=== PATIENT | female | born 1940 | race Caucasian/White ===

== ENCOUNTER → 2016-03-01 | Outpatient (CLI) | payer BC ==
[~2016-03-01] MED LIST: ADAL40KI SC; ALPR0.25 PO; ATOR-24 PO; B-CO-25 PO; BROM0.07 OPL; CALCTAB5 PO; CEFD300C2 PO; CEPH500C PO; FLUC100T4 PO; FLV1 PO; JOINT ADVANTAGE PO; METH2.5T PO; MULT-506 PO; PANT40TA PO; PRED-301 PO; PRED1SUS3 OPL; SPIR1TAB72 PO; SULI150T PO; TRAM-10 PO
[2016-03-01 10:55] LABS: ESTIMATED AVERAGE GLUCOSE 154 mg/dl; HA1C FLAG Normal (Normal)
== END | disposition home or self-care (01) ==
LOC: C.LAB1850 08:53
PROVIDERS: ATTEND Internal Medicine
DX: E11.9 Type 2 diabetes mellitus without complications (principal)

== ENCOUNTER → 2016-03-07 | Outpatient (CLI) | payer BC ==
--- NOTE | 2016-03-07 08:41 | DIAGNOSTIC IMAGING REPORT ---
ULTRASOUND RIGHT UPPER QUADRANT ABDOMEN CLINICAL HISTORY: Right upper quadrant abdominal pain. Nausea. COMPARISON STUDY: Abdominal ultrasound dated 12/18/2008. TECHNIQUE: Real-time, grayscale, and color flow sonography of the right upper quadrant of the abdomen was performed. Images are reviewed in the transverse and longitudinal planes. FINDINGS: Liver: The liver is and demonstrates heterogeneously increased echotexture consistent with at least moderate hepatic steatosis. Fatty sparing is noted adjacent to gallbladder fossa. There is no intrahepatic biliary ductal dilatation. The main portal vein is patent. Gallbladder: The gallbladder is normal in appearance. No gallstones are identified. There is no gallbladder wall thickening or pericholecystic fluid. A sonographic Acuña's sign is reportedly absent. The common bile duct measures up to 0.5 cm in diameter. Pancreas: Visualized portions of the pancreatic head and body are normal in appearance. Right kidney: Survey images of the right kidney demonstrate normal size and echotexture. There is no hydronephrosis. Ascites: None. IMPRESSION: 1. No acute sonographic abnormality is identified in the right upper quadrant. No gallstones are seen. 2. Hepatic steatosis. Electronically signed by: Ed Bowman M.D. 03/07/2016 8:39 AM Dictated Date/Time: 03/07/2016 8:38 AM
== END | disposition home or self-care (01) ==
LOC: C.ULTR 08:11
PROVIDERS: ATTEND Internal Medicine
DX: R11.0 Nausea (principal); R10.9 Unspecified abdominal pain; K76.0 Fatty (change of) liver, not elsewhere classified; M54.2 Cervicalgia

== ENCOUNTER → 2016-03-10 | Day surgery (SDC) | payer BC ==
[~2016-03-10] VITALS: Ht 152.4 cm; Wt 70.5 kg
[~2016-03-10] MED LIST changes: +ATROPINE SULFATE 0.1 MG/ML 5ML SYR IV PRN; +ESMOLOL HCL 10 MG/ML 10 ML VIAL ONE; +EpHEDrine SULFATE INJ 50 MG/ML AMP IV PRN; +LIDOCAINE HCL 2% 2 ML VIAL (20MG/ML) ONE; +METOPROLOL TARTRATE 1 MG/ML VIAL ONE; +MIDAZOLAM HCL 1 MG/ML 2ML VIAL ONE; +ONDANSETRON INJ 2 MG/ML 2 ML VIAL ONE; +PROPOFOL IV EMULSION 10 MG/ML 20 ML VIAL IV ONE; +SODIUM CHLORIDE 0.9% 500ML 500 ML IV ONE
[2016-03-10 08:56] VITALS: Ht 152.4 cm; Wt 70.5 kg
--- NOTE | 2016-03-10 08:57 | Endo History and Physical ---
History & Physical Date of Service: Mar 10, 2016. Chief Complaint: Abdominal pain Referring Physician: Dr. Denise History of Present Illness 75 yo CF who presents for EGD secondary to abdominal pain. Past Surgical History Hx Cardiac Surgery: No Hx Abdominal Surgery: No Hx Post-Op Nausea and Vomiting: No Hx Cancer Surgery: Yes (RT BREAST LUMPECTOMY) Hx Thoracic Surgery: No Hx Orthopedic: Yes (RT FOOT SURGERY) Hx Urinary Tract Surgery: No Social History Smoking Status: Never Smoker Hx Substance Use: No Hx Alcohol Use: Yes (1 GLASS WINE WEEKLY) Allergies Coded Allergies: No Known Allergies (Unverified , 12/14/15) Current Medications Reported Home Medications Medications Dose Route/Sig Max Daily Dose Days Date Category Prolensa (Bromfenac Sodium (Ophth)) 0.07 % Sara 1 Drop OPL DAILY 11/23/15 Reported Pred Forte 1% Oph (Prednisolone Acetate) Susp 1 Drop OPL BID 11/02/15 Reported Super B Complex Maxi (B-Complex W/ Folic Acid) 1 Tab Tab 1 Tab PO QAM 10/05/15 Reported Caltrate (Calcium) 600 Mg Tab 600 Mg PO QAM 10/05/15 Reported [Joint Advantage] 1 Tab PO QAM 10/05/15 Reported Multivitamin (Multivitamins) Tab 1 Tab PO QAM 10/05/15 Reported Xanax (Alprazolam) 0.25 Mg Tab 1 Tab PO HS 10/05/15 Reported Clinoril (Sulindac) 150 Mg Tab 150 Mg PO BID 10/05/15 Reported Spironolactone/Hydrochlor 25-25 mg (HCTZ/Spironolactone) 1 Ea Tab 1 Tab PO BID 10/05/15 Reported Lipitor (Atorvastatin Calcium) 40 Mg Tab 40 Mg PO QPM 10/05/15 Reported Physical Exam General Appearance: WD/WN, no apparent distress Respiratory/Chest: Auscultation: breath sounds normal Cardiovascular: Heart Auscultation: RRR Abdomen: Bowel Sounds: normal Inspection & Palpation: soft, non-distended, no tenderness, guarding & rebound Assessment and Plan Assessment: 75 yo CF who presents for EGD secondary to abdominal pain. Plan: Proceed with EGD.
--- NOTE | 2016-03-10 09:50 | Discharge Instructions ---
Endoscopy Patient Instructions Date / Procedure(s) Performed Mar 10, 2016. EGD Allergy Information Coded Allergies: No Known Allergies (Verified , 03/10/16) Discharge Date / Findings Mar 10, 2016. Gastritis s/p biopsies Medication Instructions OK to resume all medications today as prescribed. Reported Home Medications Medications Dose Route/Sig Max Daily Dose Days Date Category Super B Complex Maxi (B-Complex W/ Folic Acid) 1 Tab Tab 1 Tab PO QAM 10/05/15 Reported Caltrate (Calcium) 600 Mg Tab 600 Mg PO QAM 10/05/15 Reported [Joint Advantage] 1 Tab PO QAM 10/05/15 Reported Multivitamin (Multivitamins) Tab 1 Tab PO QAM 10/05/15 Reported Xanax (Alprazolam) 0.25 Mg Tab 1 Tab PO HS 10/05/15 Reported Clinoril (Sulindac) 150 Mg Tab 150 Mg PO BID 10/05/15 Reported Spironolactone/Hydrochlor 25-25 mg (HCTZ/Spironolactone) 1 Ea Tab 1 Tab PO BID 10/05/15 Reported Lipitor (Atorvastatin Calcium) 40 Mg Tab 40 Mg PO QPM 10/05/15 Reported Provider Instructions Activity Restrictions - No exercising or heavy lifting for 24 hours. - Do not drink alcohol the day of the procedure. - Do not drive a car or operate machinery until the day after the procedure. - Do not make any important decisions or sign important papers in 24 hours after the procedure. Following Day: - Return to full activity which may include returning to work/school. Diet Start your diet with liquids and light foods (jello, soup, juice, toast). Then eat your usual diet if not nauseated. Treatment For Common After Affects For mild abdominal pain, bloating, or excessive gas: - Rest - Eat lightly - Lie on right side Follow-Up Information Follow-up with DR. MICHELLE as scheduled Anesthesia Information What You Should Know You have had a procedure that required some medicine to reduce anxiety and discomfort. This treatment is called moderate sedation. After receiving the treatment, you may be sleepy, but you will be able to breathe on your own. The effects of the treatment may last for several hours. Follow these instructions along with Activity/Diet recommendations noted above: * Do NOT do anything where dizziness or clumsiness would be dangerous. * Rest quietly at home today, then you can be up and about tomorrow. * Have a responsible person stay with you the rest of today. * You may have had an I.V. today. If so, you may take the dressing off later today. Recommendations Call your doctor if: * Trouble breathing * Continuous vomiting for more than 24 hours * Temperature above 101 degrees * Severe abdominal pain or bloating * Pain not relieved by pain medicine ordered * There is increased drainage or redness from any incision * A large amount of rectal bleeding greater than 2-3 tablespoons. (If you had a polyp/s removed or have hemorrhoids, a small amount of blood - from the rectum is to be expected.) * You have any unanswered questions or concerns. IN THE EVENT OF A SERIOUS EMERGENCY, GO TO THE NEAREST EMERGENCY ROOM Your discharge instructions were prepared by provider Beau Ayoub. Patient Instructions Signature Page Lizzette Erickson Patient (or Guardian) Signature/Date: I have read and understand the instructions given to me by my caregivers. Caregiver/RN/Doctor Signature/Date: The above-named patient and/or guardian has received patient instructions on this date. + Original Patient Signature Page (only) stays with chart. Please make copy for patient.
--- NOTE | 2016-03-10 09:52 | Anesthesiology Progress Note ---
Anesthesia Post Op Note Date & Time Mar 10, 2016 at 09:52 Vital Signs Pain Intensity: 0 Vital Signs Past 12 Hours Date Time Temp Pulse Resp B/P Pulse Ox O2 Delivery O2 Flow Rate FiO2 03/10/16 09:49 81 18 124/59 96 Room Air 03/10/16 09:14 37.0 103 16 139/83 96 Room Air Notes Mental Status: alert / awake / arousable, participated in evaluation Pt Amnestic to Procedure: Yes Nausea / Vomiting: adequately controlled Pain: adequately controlled Airway Patency, RR, SpO2: stable & adequate BP & HR: stable & adequate Hydration State: stable & adequate Anesthetic Complications: no major complications apparent
--- NOTE | 2016-03-10 09:59 | GI REPORT ---
Procedure Date: 03/10/2016 9:22 AM Procedure: Upper GI endoscopy Indications: Epigastric abdominal pain Medicines: Monitored Anesthesia Care Complications: No immediate complications. Estimated Blood Loss: Estimated blood loss: none. Procedure: Pre-Anesthesia Assessment: - Prior to the procedure, a History and Physical was performed, and patient medications and allergies were reviewed. The patient's tolerance of previous anesthesia was also reviewed. The risks and benefits of the procedure and the sedation options and risks were discussed with the patient. All questions were answered, and informed consent was obtained. Prior Anticoagulants: The patient has taken no previous anticoagulant or antiplatelet agents. ASA Grade Assessment: II - A patient with mild systemic disease. After reviewing the risks and benefits, the patient was deemed in satisfactory condition to undergo the procedure. After obtaining informed consent, the endoscope was passed under direct vision. Throughout the procedure, the patient's blood pressure, pulse, and oxygen saturations were monitored continuously. The scope was introduced through the mouth, and advanced to the second part of duodenum. The upper GI endoscopy was accomplished without difficulty. The patient tolerated the procedure well. Findings: The esophagus was normal. Localized mild inflammation characterized by erythema was found in the gastric antrum. Biopsies were taken with a cold forceps for histology. The examined duodenum was normal. Impression: - Normal esophagus. - Gastritis. Biopsied. - Normal examined duodenum. Recommendation: - Resume previous diet. - Continue present medications. - Await pathology results. - Return to GI office as previously scheduled. Beau Ayoub, 03/10/2016 9:58:44 AM This report has been signed electronically. Note Initiated On: 03/10/2016 9:22 AM
[2016-03-10 10:15] VITALS: BP 141/66; PULSE 81; O2SAT 99
== END | disposition home or self-care (01) ==
LOC: C.GI 08:45
PROVIDERS: ATTEND Internal Medicine
DX: K29.70 Gastritis, unspecified, without bleeding (principal); Z98.890 Other specified postprocedural states

== ENCOUNTER → 2016-03-16 | Outpatient (CLI) | payer BC ==
[~2016-03-16] MED LIST changes: -ATROPINE SULFATE 0.1 MG/ML 5ML SYR IV PRN; -BROM0.07 OPL; -ESMOLOL HCL 10 MG/ML 10 ML VIAL ONE; -EpHEDrine SULFATE INJ 50 MG/ML AMP IV PRN; -LIDOCAINE HCL 2% 2 ML VIAL (20MG/ML) ONE; -METOPROLOL TARTRATE 1 MG/ML VIAL ONE; -MIDAZOLAM HCL 1 MG/ML 2ML VIAL ONE; -ONDANSETRON INJ 2 MG/ML 2 ML VIAL ONE; -PRED1SUS3 OPL; -PROPOFOL IV EMULSION 10 MG/ML 20 ML VIAL IV ONE; -SODIUM CHLORIDE 0.9% 500ML 500 ML IV ONE
== END | disposition home or self-care (01) ==
LOC: C.LAB1850 11:08
PROVIDERS: ATTEND Internal Medicine
DX: M54.2 Cervicalgia (principal)

== ENCOUNTER → 2016-04-14 | Outpatient (CLI) | payer BC ==
[2016-04-14 13:17] LABS: BASO % 0.3 %; BASO ABS # 0.03 K/uL (0-0.2); COMPLETE YES; EOS % 1.1 %; HEMATOCRIT 43.1 % (37-47); IG% 0.3 %; LYMPH % 25.1 %; LYMPH ABS # 2.21 K/uL (1.2-3.4); MEAN CELL VOLUME 89.2 fL (80-100); MEAN CORPUSCULAR HEMOGLOBIN 30.8 pg (25-34); MEAN CORPUSCULAR HGB CONC 34.6 g/dl (32-36); MEAN PLATELET VOLUME 8.3 fL (7.4-10.4); MONO % 9.1 %; NEUT % 64.1 %; PLATELET COUNT 336 K/uL (130-400); RED BLOOD COUNT 4.83 M/uL (4.2-5.4); WHITE BLOOD COUNT 8.81 K/uL (4.8-10.8)
[2016-04-14 14:00] LABS: C-REACTIVE PROTEIN 5.56 mg/dl (0-0.29)
--- NOTE | 2016-04-18 09:03 | CODING QUERY MEDICAL NECESSITY ---
SUPPORTING DIAGNOSIS NEEDED Dr. Denise, A supporting diagnosis is required for the test/procedure performed on this patient in order for us to be reimbursed by the patient's insurance. Please provide a supporting diagnosis for the following test/procedure listed below next to the test name along with your signature. *If there is no additional diagnosis for this patient that would support the following test/procedure please document that below next to the test/procedure. Test(s)/Procedure(s) that require a supporting diagnosis: * ([id number]) HLA B-27 DIAGNOSIS: DATE OF SERVICE: 04/14/16 Provider Signature: Date: Thank you Diaz Talbert [facility] Information Management Once completed, please kindly fax back to [phone] For questions please call [phone]
[2016-04-18 15:28] LABS: CYCLIC CITRULLINATED PEPT IGG >250 UNITS (<20); HLA-B27** TC 528X NEGATIVE (NEGATIVE)
== END | disposition home or self-care (01) ==
LOC: C.LAB1850 12:12
PROVIDERS: ATTEND Internal Medicine
DX: E11.9 Type 2 diabetes mellitus without complications (principal); M19.90 Unspecified osteoarthritis, unspecified site

== ENCOUNTER → 2016-04-28 | Outpatient (CLI) | payer BC ==
--- NOTE | 2016-04-28 14:45 | DIAGNOSTIC IMAGING REPORT ---
RIGHT WRIST MIN 3 VIEWS ROUTINE CLINICAL HISTORY: Seropositive rheumatoid arthritis. Right wrist and hand pain. COMPARISON: None FINDINGS: Alignment of the right wrist is in the common. There is no acute fracture or suspicious lesion. No erosions are identified. Minimal joint space narrowing is noted. IMPRESSION: 1. Unremarkable right wrist radiographs for age. 2. No evidence of an erosive/inflammatory arthropathy. Electronically signed by: Ras Henderson M.D. 04/28/2016 2:44 PM Dictated Date/Time: 04/28/2016 2:43 PM
--- NOTE | 2016-04-28 14:47 | DIAGNOSTIC IMAGING REPORT ---
RIGHT HAND MIN 3 VIEWS ROUTINE CLINICAL HISTORY: Seropositive rheumatoid arthritis. COMPARISON: None FINDINGS: Alignment of the right hand is anatomic. No fracture or suspicious lesion is present. There is moderate joint space narrowing with osteophytosis of multiple interphalangeal joints, most evident within the second and third DIP joints. There is an equivocal erosion of the second metacarpal head. IMPRESSION: 1. 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 2. Equivocal erosion of the second metacarpal head. Electronically signed by: Ras Henderson M.D. 04/28/2016 2:46 PM Dictated Date/Time: 04/28/2016 2:44 PM
== END | disposition home or self-care (01) ==
LOC: C.RAD1850 14:25
PROVIDERS: ATTEND Internal Medicine Rheumatology
DX: Z51.81 Encounter for therapeutic drug level monitoring (principal); Z79.899 Other long term (current) drug therapy; Z79.1 Long term (current) use of non-steroidal anti-inflammatories (NSAID); M05.9 Rheumatoid arthritis with rheumatoid factor, unspecified

== ENCOUNTER → 2016-05-29 | Outpatient (CLI) | payer BC ==
[2016-05-29 10:10] LABS: BASO % 0.3 %; BASO ABS # 0.05 K/uL (0-0.2); COMPLETE YES; EOS % 1.9 %; HEMATOCRIT 45.1 % (37-47); LYMPH % 33.1 %; LYMPH ABS # 4.76 K/uL (1.2-3.4); MEAN CELL VOLUME 87.9 fL (80-100); MEAN CORPUSCULAR HEMOGLOBIN 30.2 pg (25-34); MEAN CORPUSCULAR HGB CONC 34.4 g/dl (32-36); MEAN PLATELET VOLUME 8.4 fL (7.4-10.4); MONO % 6.4 %; NEUT % 57.3 %; PLATELET COUNT 299 K/uL (130-400); RED BLOOD COUNT 5.13 M/uL (4.2-5.4); WHITE BLOOD COUNT 14.36 K/uL (4.8-10.8)
[2016-05-29 10:16] LABS: ALT/SGPT 40 U/L (12-78)
[2016-05-29 10:20] LABS: ALKALINE PHOSPHATASE 73 U/L (45-117); AST/SGOT 12 U/L (15-37)
== END | disposition home or self-care (01) ==
LOC: C.LAB1850 08:05
PROVIDERS: ATTEND Internal Medicine Rheumatology
DX: L90.0 Lichen sclerosus et atrophicus (principal); M05.9 Rheumatoid arthritis with rheumatoid factor, unspecified; Z79.52 Long term (current) use of systemic steroids

== ENCOUNTER 2016-07-03 17:25 | Emergency (ER) | payer BC ==
[~2016-07-03] VITALS: Ht 152.4 cm; Wt 71.4 kg
[~2016-07-03 17:25] MED LIST changes: -ADAL40KI SC; -CEFD300C2 PO; -CEPH500C PO; -FLUC100T4 PO; -FLV1 PO; -METH2.5T PO; -PANT40TA PO; -PRED-301 PO; -TRAM-10 PO
[2016-07-03 17:32] VITALS: TEMP 36.6; Ht 152.4 cm; Wt 71.4 kg
[2016-07-03] MEDS ORDERED: LEVALBUTEROL 1.25MG/0.5ML NEB INH STA (17:52)
[2016-07-03] MEDS ORDERED: IPRATROPIUM BROMIDE NEB SOLN 0.02% 2.5 ML VIAL INH STA (17:52)
[2016-07-03] MEDS ORDERED: ADAL40KI SC (17:55)
[2016-07-03] MEDS ORDERED: FLV1 PO (17:55)
[2016-07-03] MEDS ORDERED: PANT40TA PO (17:55)
[2016-07-03] MEDS ORDERED: METH2.5T PO (17:55)
[2016-07-03] MEDS ORDERED: PRED-301 PO ×2 (17:55)
[2016-07-03] MEDS ORDERED: CALCTAB5 PO (17:55)
[2016-07-03 18:17] VITALS: O2SAT 96
[2016-07-03 18:21] LABS: BASO % 0.4 %; BASO ABS # 0.03 K/uL (0-0.2); COMPLETE YES; EOS % 1.2 %; HEMATOCRIT 45.9 % (37-47); IG% 1.2 %; LYMPH % 32.3 %; MEAN CELL VOLUME 89.8 fL (80-100); MEAN CORPUSCULAR HEMOGLOBIN 30.5 pg (25-34); MEAN PLATELET VOLUME 8.1 fL (7.4-10.4); MONO % 10.5 %; NEUT % 54.4 %; PLATELET COUNT 307 K/uL (130-400); RED BLOOD COUNT 5.11 M/uL (4.2-5.4); WHITE BLOOD COUNT 7.43 K/uL (4.8-10.8)
[2016-07-03 18:32] VITALS: PULSE 108; O2SAT 96
[2016-07-03 18:33] LABS: PARTIAL THROMBOPLASTIN RATIO 1.1; PROTHROMBIN TIME (PATIENT) 10.7 SECONDS (9.0-12.0)
--- NOTE | 2016-07-03 18:35 | DIAGNOSTIC IMAGING REPORT ---
CHEST ONE VIEW PORTABLE CLINICAL HISTORY: EVALUATE RESPIRATORY DISTRESS. DYSPNEA dyspnea COMPARISON STUDY: No previous studies for comparison. FINDINGS: Slight bibasilar interstitial change. Mid and upper lungs are clear. Diaphragms are smooth. No evidence for cardiac enlargement. IMPRESSION: Mild nonspecific interstitial prominence both lung bases. Otherwise negative study Electronically signed by: Arslan Norwood M.D. 07/03/2016 6:33 PM Dictated Date/Time: 07/03/2016 6:33 PM
[2016-07-03 18:41] LABS: ALT/SGPT 49 U/L (12-78); AST/SGOT 14 U/L (15-37); BLOOD UREA NITROGEN 17 mg/dl (7-18); BUN/CREATININE RATIO 15.1 (10-20); CALCIUM 10.1 mg/dl (8.5-10.1); CARBON DIOXIDE 31 mmol/L (21-32); CHLORIDE 98 mmol/L (98-107); GLUCOSE 200 mg/dl (70-99); POTASSIUM 3.8 mmol/L (3.5-5.1); SODIUM 136 mmol/L (136-145)
[2016-07-03] MEDS ORDERED: OPTIRAY 320 IV PRN (18:45)
[2016-07-03 18:46] LABS: ALB/GLOB RATIO 0.9 (0.9-2); ALKALINE PHOSPHATASE 76 U/L (45-117)
[2016-07-03 19:15] LABS: MANUAL MICROSCOPIC REQUIRED? NO; REVIEW REQ? NO; URINE APPEARANCE CLEAR (CLEAR); URINE BILIRUBIN NEG (NEG); URINE COLOR YELLOW; URINE EPITHELIAL CELL AUTO >30 /lpf (0-5); URINE NITRITE POS (NEG); URINE PH 7.5 (4.5-7.5); UROBILINOGEN NEG (NEG); ZZUR CULT IF INDIC CLEAN CATCH YES
--- NOTE | 2016-07-03 19:17 | DIAGNOSTIC IMAGING REPORT ---
CHEST CTA for PULMONARY ARTERIES CT DOSE: 438.46 mGy.cm HISTORY: Chest pain dyspnea TECHNIQUE: Multiaxial CT images of the chest were performed following the intravenous administration of contrast to evaluate the pulmonary arteries. Maximal intensity projection images were also obtained. COMPARISON STUDY: None. FINDINGS: There is a normal caliber thoracic aorta with no evidence for dissection. There is no evidence for pulmonary embolus. No pleural effusions. No pneumothorax. The liver and spleen are unremarkable. No mediastinal or hilar lymphadenopathy. The central airways are patent. The lungs are clear. Slight interstitial prominence of both lung bases. IMPRESSION: No evidence for pulmonary embolus. Slight basilar interstitial prominence. Electronically signed by: Arslan Norwood M.D. 07/03/2016 7:16 PM Dictated Date/Time: 07/03/2016 7:13 PM
--- NOTE | 2016-07-03 19:25 | EMERGENCY ROOM VISIT NOTE ---
History Report prepared by Marysol: Rodrigo Tovar Under the Supervision of: Dr. Ed Amaya M.D. First contact with patient: 17:40 Chief Complaint: SHORTNESS OF BREATH Stated Complaint: SOB,COUGH,WEAKNESS,DR REFERRED Nursing Triage Summary: PT VERBALIZES "I'M ON SOME MEDICINES THAT I AM HAVING TERRIBLE REACTIONS TO. I TALKED TO MY MD, AND SHE REFERRED ME HERE".SYMPTOMS INCLUDE: SHORTNESS OF BREATH, FEELING JITTERY, COUGH, CHEST TIGHTNESS, AND LETHARGY. NEW MEDICATIONS INCLUDE: HUMIRA, PREDNISONE, METHOTREXATE, AND FOLIC ACID FOR RA. History of Present Illness The patient is a 75 year old female who presents to the Emergency Room with complaints of worsening shortness of breath starting about 2-3 weeks ago. She was recently diagnosed with acute onset of rheumatoid arthritis and was started on Methotrexate, Prednisone, and Humira injections. Her symptoms started after she started receiving the Humira injections. She receives the injections every other week. Her last injection was 3 days ago. She is now tapering off of the Prednisone. She has worsening difficulty breathing with exertion. She reports nonproductive cough, increased urinary frequency, urinary and bowel pressure, diarrhea, generalized weakness, and shakiness. The patient reports chest pain with coughing. She notes a tachycardic heart rate occurring for the past few days. She denies fevers, chills, black/bloody stools, lower extremity edema, or any other complaints. She did not have any recent long trips. She denies any history of lung disease, heart disease, or blood clots. Source of History: patient Onset: about 2-3 weeks ago Position: other (global) Quality: other (shortness of breath) Timing: worsening Modifying Factors (Worsening): exertion Associated Symptoms: + chest pain (with coughing), + cough, + diarrhea, + weakness, No chills, No fevers Review of Systems See HPI for pertinent positives & negatives. A total of 10 systems reviewed and were otherwise negative. Past Medical & Surgical Medical Problems: (1) Rheumatoid arthritis Family History Patient reports no known family medical history. Social History Smoking Status: Never Smoker Marital Status: Occupation Status: retired Current/Historical Medications Scheduled Adalimumab (Humira Pen), 1 DOSE SC EVERY OTHER SUNDAY Atorvastatin (Lipitor), 40 MG PO QPM B-Complex W/ Folic Acid (Super B Complex Maxi), 1 TAB PO QAM Calcium Carbonate (Caltrate 600), 1 TAB PO DAILY Cefdinir (Omnicef), 300 MG PO Q12H Folic Acid (Folic Acid), 1 MG PO DAILY Hctz/Spironolactone (Spironolactone/Hydrochlor 25-25 mg), 1 TAB PO BID Methotrexate Sodium (Methotrexate), 4 TAB PO WK Multivitamin (Multivitamin), 1 TAB PO QAM Pantoprazole (Protonix), 40 MG PO DAILY Prednisone (Prednisone), 5 MG PO Q2D Prednisone (Prednisone), 2.5 MG PO Q2D Allergies Coded Allergies: No Known Allergies (Verified , 03/10/16) Physical Exam Vital Signs Date Time Temp Pulse Resp B/P Pulse Ox O2 Delivery O2 Flow Rate FiO2 07/03/16 21:10 101 18 129/85 96 07/03/16 19:15 107 20 136/88 98 Room Air 07/03/16 18:32 108 18 96 Room Air 07/03/16 18:17 96 Room Air 07/03/16 17:48 121 07/03/16 17:32 95 Room Air 07/03/16 17:32 36.6 124 20 142/76 96 Physical Exam GENERAL: Patient is in no acute distress. HEENT: No acute trauma, normocephalic atraumatic, mucous membranes moist, no nasal congestion, no scleral icterus. NECK: No stridor, no adenopathy, no meningismus, trachea is midline. LUNGS: Fairly full breath sounds, breath sounds are equal bilaterally, few scattered crackles are heard. No wheezing. Dry cough noted. HEART: Tachycardic rate and regular rhythm. No murmurs. ABDOMEN: Soft, nontender, bowel sounds positive, no hernias, no peritonitis. EXTREMITIES: No cyanosis or edema, full range of motion of all the joints without pain or difficulty, no signs for acute trauma. NEUROLOGIC: Oriented x 3, no acute motor or sensory deficits, no focal weakness. SKIN: No rash, no jaundice, no diaphoresis. Medical Decision & Procedures ER Provider Diagnostic Interpretation: X-ray results as stated below per interpretation by me and the radiologist: CHEST ONE VIEW PORTABLE CLINICAL HISTORY: EVALUATE RESPIRATORY DISTRESS. DYSPNEA dyspnea COMPARISON STUDY: No previous studies for comparison. FINDINGS: Slight bibasilar interstitial change. Mid and upper lungs are clear. Diaphragms are smooth. No evidence for cardiac enlargement. IMPRESSION: Mild nonspecific interstitial prominence both lung bases. Otherwise negative study Electronically signed by: Arslan Norwood M.D. 07/03/2016 6:33 PM Dictated Date/Time: 07/03/2016 6:[address] results as stated below per my review and radiologist interpretation: CHEST CTA for PULMONARY ARTERIES CT DOSE: 438.46 mGy.cm HISTORY: Chest pain dyspnea TECHNIQUE: Multiaxial CT images of the chest were performed following the intravenous administration of contrast to evaluate the pulmonary arteries. Maximal intensity projection images were also obtained. COMPARISON STUDY: None. FINDINGS: There is a normal caliber thoracic aorta with no evidence for dissection. There is no evidence for pulmonary embolus. No pleural effusions. No pneumothorax. The liver and spleen are unremarkable. No mediastinal or hilar lymphadenopathy. The central airways are patent. The lungs are clear. Slight interstitial prominence of both lung bases. IMPRESSION: No evidence for pulmonary embolus. Slight basilar interstitial prominence. Electronically signed by: Arslan Norwood M.D. 07/03/2016 7:16 PM Dictated Date/Time: 07/03/2016 7:13 PM Laboratory Results 07/03/16 18:10 Red Blood Count 5.11, Mean Corpuscular Volume 89.8, Mean Corpuscular Hemoglobin 30.5, Mean Corpuscular Hemoglobin Concent 34.0, Mean Platelet Volume 8.1, Neutrophils (%) (Auto) 54.4, Lymphocytes (%) (Auto) 32.3, Monocytes (%) (Auto) 10.5, Eosinophils (%) (Auto) 1.2, Basophils (%) (Auto) 0.4, Neutrophils # (Auto ) 4.04, Lymphocytes # (Auto) 2.40, Monocytes # (Auto) 0.78, Eosinophils # (Auto ) 0.09, Basophils # (Auto) 0.03 07/03/16 18:10 Test 07/03/16 18:10 07/03/16 18:16 07/03/16 19:00 White Blood Count 7.43 K/uL (4.8-10.8) Red Blood Count 5.11 M/uL (4.2-5.4) Hemoglobin 15.6 g/dL (12.0-16.0) Hematocrit 45.9 % (37-47) Mean Corpuscular Volume 89.8 fL (80-100) Mean Corpuscular Hemoglobin 30.5 pg (25-34) Mean Corpuscular Hemoglobin Concent 34.0 g/dl (32-36) Platelet Count 307 K/uL (130-400) Mean Platelet Volume 8.1 fL (7.4-10.4) Neutrophils (%) (Auto) 54.4 % Lymphocytes (%) (Auto) 32.3 % Monocytes (%) (Auto) 10.5 % Eosinophils (%) (Auto) 1.2 % Basophils (%) (Auto) 0.4 % Neutrophils # (Auto) 4.04 K/uL (1.4-6.5) Lymphocytes # (Auto) 2.40 K/uL (1.2-3.4) Monocytes # (Auto) 0.78 K/uL (0.11-0.59) Eosinophils # (Auto) 0.09 K/uL (0-0.5) Basophils # (Auto) 0.03 K/uL (0-0.2) RDW Standard Deviation 48.0 fL (36.4-46.3) RDW Coefficient of Variation 14.9 % (11.5-14.5) Immature Granulocyte % (Auto) 1.2 % Immature Granulocyte # (Auto) 0.09 K/uL (0.00-0.02) Prothrombin Time 10.7 SECONDS (9.0-12.0) Prothromb Time International Ratio 1.0 (0.9-1.1) Activated Partial Thromboplast Time 27.6 SECONDS (21.0-31.0) Partial Thromboplastin Ratio 1.1 Anion Gap 7.0 mmol/L (3-11) Est Creatinine Clear Calc Drug Dose 40.2 ml/min Estimated GFR () 57.7 Estimated GFR (Non- 49.8 BUN/Creatinine Ratio 15.1 (10-20) Calcium Level 10.1 mg/dl (8.5-10.1) Total Bilirubin 0.7 mg/dl (0.2-1) Aspartate Amino Transf (AST/SGOT) 14 U/L (15-37) Alanine Aminotransferase (ALT/SGPT) 49 U/L (12-78) Alkaline Phosphatase 76 U/L (45-117) Troponin I < 0.015 ng/ml (0-0.045) Pro-B-Type Natriuretic Peptide 22 pg/ml (0-900) Total Protein 8.1 gm/dl (6.4-8.2) Albumin 3.8 gm/dl (3.4-5.0) Globulin 4.3 gm/dl (2.5-4.0) Albumin/Globulin Ratio 0.9 (0.9-2) Bedside D-Dimer > 450 ng/mlFEU (0-450) Bedside Troponin I 0.010 ng/ml (0-0.045) Urine Color YELLOW Urine Appearance CLEAR (CLEAR) Urine pH 7.5 (4.5-7.5) Urine Specific Irene 1.010 (1.000-1.030) Urine Protein NEG (NEG) Urine Glucose (UA) TRACE (NEG) Urine Ketones NEG (NEG) Urine Occult Blood TRACE (NEG) Urine Nitrite POS (NEG) Urine Bilirubin NEG (NEG) Urine Urobilinogen NEG (NEG) Urine Leukocyte Esterase TRACE (NEG) Urine WBC (Auto) 1-5 /hpf (0-5) Urine RBC (Auto) 0-4 /hpf (0-4) Urine Hyaline Casts (Auto) 0 /lpf (0-5) Urine Epithelial Cells (Auto) >30 /lpf (0-5) Urine Bacteria (Auto) 4+ (NEG) Laboratory results reviewed by me. Medications Administered Medications (Trade) Dose Ordered Sig/Isaac Route Start Time Stop Time Status Last Admin Dose Admin Levalbuterol (Xopenex 1.25MG/ 0.5ML Neb) 1.25 mg NOW STAT INH 07/03/16 17:52 07/03/16 17:58 DC 07/03/16 17:52 1.25 MG Ipratropium [place] 0.5 mg 0.5 mg NOW STAT INH 07/03/16 17:52 07/03/16 17:58 DC 07/03/16 18:30 0.5 MG Sodium Chloride (Nss 500ml) 500 ml @ 999 mls/hr Q31M STAT IV 07/03/16 19:40 07/03/16 20:10 DC 07/03/16 20:14 999 MLS/HR Ceftriaxone Sodium 1 gm 1 gm NOW STAT IV 07/03/16 19:40 07/03/16 19:41 DC 07/03/16 20:15 1 GM Sodium Chloride (Nss 500ml) 500 ml @ 999 mls/hr Q31M STAT IV 07/03/16 20:15 07/03/16 20:45 DC 07/03/16 20:15 999 MLS/HR Albuterol (Ventolin Hfa Inhaler) 2 puffs NOW ONCE INH 07/03/16 20:15 07/03/16 20:16 DC 07/03/16 20:15 2 PUFFS ECG Indication: SOB/dyspnea Rate (beats per minute): 128 Rhythm: sinus tachycardia Findings: no acute ischemic change, no ectopy ED Course 1739: The patient was evaluated in room C01B. A complete history and physical exam was performed. 1751: Ipratropium [place] 0.5 mg INH, Levalbuterol 1.25 mg INH 1939: Rocephin Inj 1 gm IV, Sodium Chloride 500 ml @ 999 mls/hr IV 1940: I reevaluated the patient who is resting comfortably. 1955: I discussed the patient's case with Dr. Winkler, director of software engineering with [facility]. She recommended outpatient follow up and agreed with the treatment plan. 2014: Albuterol 2 puffs INH, Sodium Chloride 500 ml @ 999 mls/hr IV 2024: Reevaluated the patient. Discussed results and discharge instructions: She verbalized understanding and agreement. The patient is ready for discharge. Medical Decision Differential diagnosis includes but is not limited to PE, dehydration, medication reaction, A-Fib/A-Flutter, CHF, pneumonia, bronchitis, anemia, electrolyte imbalance. There is no leukocytosis or concerning anemia. No significant electrolyte abnormality, kidney failure or hepatitis. EKG shows a sinus tachycardia, no acute ischemia. Cardiac enzyme testing times one is not consistent with acute cardiac injury. Chest x-ray shows no pneumonia or CHF. There was no pneumothorax. D-dimer was elevated. Chest CT does not show PE, no evidence for pneumonia. Urinalysis is consistent with infection. Urine culture is pending. The patient received IV saline, IV ceftriaxone. She was given a DuoNeb. She received albuterol via MDI. The patient's heart rate has come down significantly. She feels improved. I do think her presentation is multifactorial. She may have a bronchitis, this has caused some dyspnea. She definitely has a UTI which is a large part of her presentation. I did speak with her director of software engineering. The patient is being discharged on Omnicef twice a day for 10 days. Albuterol for the presumed bronchospasm. Hydration was encouraged. She will return here for fever, worsening symptoms or if not improving. Consults Time Called: 1954 Consulting Physician: Dr. Winkler, director of software engineering with [facility] Returned Call: 1955 I discussed the patient's case with Dr. Winkler director of software engineering with [facility]. She recommended outpatient follow up and agreed with the treatment plan. Impression Primary Impression: Tachycardia Additional Impressions: Shortness of breath Dehydration UTI (urinary tract infection) Scribe Attestation The scribe's documentation has been prepared under my direction and personally reviewed by me in its entirety. I confirm that the note above accurately reflects all work, treatment, procedures, and medical decision making performed by me. Departure Information Dispostion Home / Self-Care Prescriptions Cefdinir (OMNICEF) 300 Mg Cap 300 MG PO Q12H for 10 Days, #20 CAP Prov: Ed Amaya M.D. 07/03/16 Referrals Rajinder Denise M.D. (PCP) Forms HOME CARE DOCUMENTATION FORM, IMPORTANT VISIT INFORMATION Patient Instructions My [facility] Additional Instructions omnicef 2x per day for 10 days stay well hydrated use albuterol inhaler 2 puffs every 4-6 hours see your doctors this week return for worsening symptoms as we discussed or if not improving Problem Qualifiers
[2016-07-03] MEDS ORDERED: CEFTRIAXONE SOD INJ 1 GM ADDVIAL IV STA (19:40)
[2016-07-03] MEDS ORDERED: SODIUM CHLORIDE 0.9% 500ML 500 ML IV STA ×2 (19:40→20:15)
[2016-07-03] MEDS ORDERED: CEFD300C2 PO (20:14)
[2016-07-03] MEDS ORDERED: ALBUTEROL HFA 8 GM INHALER INH ONE (20:15)
[2016-07-03 21:10] VITALS: BP 129/85; PULSE 101; O2SAT 96
== END 2016-07-03 21:11 | disposition home or self-care (01) ==
LOC: C.EDB 17:26 → C.EDC 21:11
DX: R00.0 Tachycardia, unspecified (principal); R06.02 Shortness of breath; E86.0 Dehydration; N39.0 Urinary tract infection, site not specified; M06.9 Rheumatoid arthritis, unspecified; Z79.899 Other long term (current) drug therapy; Z79.52 Long term (current) use of systemic steroids

== ENCOUNTER → 2016-07-07 | Outpatient (CLI) | payer BC ==
[~2016-07-07] MED LIST changes: +ADAL40KI SC; -ALPR0.25 PO; +CEFD300C2 PO; +CEPH500C PO; +FLUC100T4 PO; +FLV1 PO; -JOINT ADVANTAGE PO; +METH2.5T PO; +PANT40TA PO; +PRED-301 PO; -SULI150T PO; +TRAM-10 PO
[2016-07-07 09:31] LABS: BASO % 0.3 %; BASO ABS # 0.04 K/uL (0-0.2); COMPLETE YES; EOS % 1.7 %; HEMATOCRIT 47.5 % (37-47); IG% 0.6 %; LYMPH % 26.4 %; LYMPH ABS # 3.21 K/uL (1.2-3.4); MEAN CELL VOLUME 90.6 fL (80-100); MEAN CORPUSCULAR HEMOGLOBIN 31.5 pg (25-34); MEAN CORPUSCULAR HGB CONC 34.7 g/dl (32-36); MEAN PLATELET VOLUME 8.5 fL (7.4-10.4); MONO % 7.2 %; NEUT % 63.8 %; PLATELET COUNT 325 K/uL (130-400); RED BLOOD COUNT 5.24 M/uL (4.2-5.4); WHITE BLOOD COUNT 12.15 K/uL (4.8-10.8)
[2016-07-07 10:09] LABS: ALT/SGPT 53 U/L (12-78); AST/SGOT 23 U/L (15-37)
[2016-07-07 10:11] LABS: ALKALINE PHOSPHATASE 73 U/L (45-117)
== END | disposition home or self-care (01) ==
LOC: C.LAB1850 08:26
PROVIDERS: ATTEND Internal Medicine Rheumatology
DX: Z79.899 Other long term (current) drug therapy (principal)

== ENCOUNTER → 2016-07-12 | Outpatient (CLI) | payer BC ==
--- NOTE | 2016-07-12 13:46 | DIAGNOSTIC IMAGING REPORT ---
CHEST 2 VIEWS ROUTINE CLINICAL HISTORY: Cough. Allergic reaction. COMPARISON STUDY: 07/03/2016 FINDINGS: The cardiac and mediastinal contours remain stable. There is stable nonspecific interstitial thickening. There is no lobar consolidation. There are no pleural effusions. There is no overt failure.[ IMPRESSION: Nonspecific interstitial thickening, similar to the preceding study. No evidence of lobar consolidation. Electronically signed by: Sukhdeep Maldonado M.D. 07/12/2016 1:44 PM Dictated Date/Time: 07/12/2016 1:43 PM
== END | disposition home or self-care (01) ==
LOC: C.RAD1850 13:31
PROVIDERS: ATTEND Internal Medicine
DX: R05 Cough (principal)

== ENCOUNTER → 2016-07-21 | Outpatient (CLI) | payer BC ==
[~2016-07-21] MED LIST changes: -CEFD300C2 PO
[2016-07-21 09:56] LABS: CALCIUM 10.3 mg/dl (8.5-10.1)
[2016-07-21 10:00] LABS: BLOOD UREA NITROGEN 26 mg/dl (7-18); BUN/CREATININE RATIO 23.6 (10-20); CARBON DIOXIDE 31 mmol/L (21-32); CHLORIDE 96 mmol/L (98-107); CHOLESTEROL 268 mg/dl (0-200); GLUCOSE 145 mg/dl (70-99); POTASSIUM 3.6 mmol/L (3.5-5.1); SODIUM 137 mmol/L (136-145); TRIGLYCERIDES 224 mg/dl (0-150); VERY LOW DENSITY LIPOPROT CALC 45 mg/dl
[2016-07-21 10:04] LABS: ESTIMATED AVERAGE GLUCOSE 235 mg/dl; HA1C FLAG Normal (Normal)
[2016-07-21 10:11] LABS: CHOLESTEROL/HDL RATIO 4.1; HDL CHOLESTEROL 66 mg/dl; LDL CHOLESTEROL CALCULATED 157 mg/dl
[2016-07-21 12:40] LABS: URINE APPEARANCE CLEAR (CLEAR); URINE BILIRUBIN NEG (NEG); URINE COLOR DK YELLOW; URINE EPITHELIAL CELL AUTO >30 /lpf (0-5); URINE NITRITE NEG (NEG); URINE PH 5.5 (4.5-7.5); URINE SPECIFIC GRAVITY 1.023 (1.000-1.030); UROBILINOGEN NEG (NEG)
[2016-07-21 12:51] LABS: MANUAL MICROSCOPIC REQUIRED? NO; REVIEW REQ? YES
--- NOTE | 2016-07-28 11:44 | CODING QUERY MEDICAL NECESSITY ---
CQTREATMENT RENDERED WITHOUT A DIAGNOSIS To promote full compliance with coding requirements relating to patient care, physician participation is requested in all cases of concierge uncertainty. Please assist us with providing a diagnosis/symptom for the test(s) below: A diagnosis/symptom was not documented on your Order. A valid diagnosis/symptom is required to bill all insurances. Please remember that we are unable to code a diagnosis of rule out, probable, possible, questionable, or suspected. Tests that require a diagnosis: DOS 07/21/16 Provider Signature: Date: Thank you Oksana Corbin [employer] Once completed, please kindly fax back to [phone] For questions please call [phone]
--- NOTE | 2016-07-28 11:46 | CODING QUERY MEDICAL NECESSITY ---
CQSUPPORTING DIAGNOSIS NEEDED A supporting diagnosis is required for the test/procedure performed on this patient in order for us to be reimbursed by the patient's insurance. Please provide a supporting diagnosis for the following test/procedure listed below next to the test name along with your signature. *If there is no additional diagnosis for this patient that would support the following test/procedure please document that below next to the test/procedure. Test(s)/Procedure(s) that require a supporting diagnosis: DOS 07/21/16 GLYCATED HEMOGLOBIN Provider Signature: Date: Thank you Oksana Corbin [employer] Once completed, please kindly fax back to [phone] For questions please call [phone]
== END | disposition home or self-care (01) ==
LOC: C.LAB1850 07:32
PROVIDERS: ATTEND Internal Medicine
DX: E78.00 Pure hypercholesterolemia, unspecified (principal); E11.9 Type 2 diabetes mellitus without complications

== ENCOUNTER → 2016-07-31 | Outpatient (CLI) | payer BC ==
--- NOTE | 2016-08-01 12:46 | MAMMOGRAPHY REPORT ---
BILATERAL DIGITAL SCREENING MAMMOGRAM TOMOSYNTHESIS WITH CAD: 07/31/2016 CLINICAL HISTORY: Asymptomatic. Personal history of breast cancer. TECHNIQUE: Breast tomosynthesis in addition to standard 2D mammography was performed. Current study was also evaluated with a Computer Aided Detection (CAD) system. COMPARISON: Comparison is made to exams dated: 07/27/2015 mammogram, 07/23/2014 mammogram, 07/25/2013 m ammogram, 07/22/2013 mammogram, 07/18/2012 mammogram, and 07/18/2011 mammogram - [facility] enter. BREAST COMPOSITION: There are scattered areas of fibroglandular density in both breasts. FINDINGS: There is expected architectural distortion with associated surgical clips in the upper oute r quadrant of the right breast, at the site of prior lumpectomy. There are scattered and grouped sta ble microcalcifications bilaterally. No new suspicious mass, architectural distortion or cluster of microcalcifications is seen. IMPRESSION: ACR BI-RADS CATEGORY 1: NEGATIVE There is no mammographic evidence of malignancy. A 1 year screening mammogram is recommended. The pa tient will receive written notification of the results. Approximately 10% of breast cancers are not detected with mammography. A negative mammographic report should not delay biopsy if a clinically suggestive mass is present. Farrah Akins M.D. ay/:07/31/2016 16:38:45 [place]: Lillie DAMICO(R)(Hali), [facility] letter sent: Normal 1/2 BI-RADS Code: ACR BI-RADS Category 1: Negative
== END | disposition home or self-care (01) ==
LOC: C.MAMM 09:54
PROVIDERS: ATTEND Obstetrics & Gynecology
DX: Z12.31 Encounter for screening mammogram for malignant neoplasm of breast (principal)

== ENCOUNTER → 2016-08-11 | Outpatient (CLI) | payer BC ==
[2016-08-11 13:24] LABS: BASO % 0.1 %; BASO ABS # 0.01 K/uL (0-0.2); COMPLETE YES; EOS % 0.1 %; HEMATOCRIT 48.7 % (37-47); IG% 1.3 %; LYMPH % 12.1 %; LYMPH ABS # 1.54 K/uL (1.2-3.4); MEAN CELL VOLUME 92.2 fL (80-100); MEAN CORPUSCULAR HEMOGLOBIN 31.8 pg (25-34); MEAN CORPUSCULAR HGB CONC 34.5 g/dl (32-36); MEAN PLATELET VOLUME 8.9 fL (7.4-10.4); MONO % 2.9 %; NEUT % 83.5 %; PLATELET COUNT 284 K/uL (130-400); RED BLOOD COUNT 5.28 M/uL (4.2-5.4); WHITE BLOOD COUNT 12.74 K/uL (4.8-10.8)
[2016-08-11 14:47] LABS: BLOOD UREA NITROGEN 28 mg/dl (7-18); BUN/CREATININE RATIO 21.3 (10-20); CARBON DIOXIDE 28 mmol/L (21-32); CHLORIDE 91 mmol/L (98-107); GLUCOSE 363 mg/dl (70-99); POTASSIUM 4.7 mmol/L (3.5-5.1); SODIUM 130 mmol/L (136-145)
[2016-08-11 15:05] LABS: BETA-HYDROXYBUTYRATE 2.35 mg/dL (0.2-2.81)
[2016-08-11 18:53] LABS: CALCIUM 10.4 mg/dl (8.5-10.1)
--- NOTE | 2016-08-16 11:16 | CODING QUERY MEDICAL NECESSITY ---
SUPPORTING DIAGNOSIS NEEDED A supporting diagnosis is required for the test/procedure performed on this patient in order for us to be reimbursed by the patient's insurance. Please provide a supporting diagnosis for the following test/procedure listed below next to the test name along with your signature. *If there is no additional diagnosis for this patient that would support the following test/procedure please document that below next to the test/procedure. Test(s)/Procedure(s) that require a supporting diagnosis: * FRUCTOSAMINE DIAGNOSIS: Provider Signature: Date: Thank you Sandy Arroyo [place] Once completed, please kindly fax back to [phone] For questions please call [phone]
== END | disposition home or self-care (01) ==
LOC: C.LAB1850 11:46
PROVIDERS: ATTEND Internal Medicine
DX: E78.00 Pure hypercholesterolemia, unspecified (principal); E11.9 Type 2 diabetes mellitus without complications

== ENCOUNTER → 2016-08-22 | Outpatient (CLI) | payer BC | END | disposition home or self-care (01) | LOC: C.LAB1850 12:14 | PROVIDERS: ATTEND Internal Medicine Rheumatology | DX: M05.9 Rheumatoid arthritis with rheumatoid factor, unspecified (principal); J18.9 Pneumonia, unspecified organism ==

== ENCOUNTER → 2016-09-15 | Outpatient (CLI) | payer BC ==
--- NOTE | 2016-09-22 10:55 | CODING QUERY MEDICAL NECESSITY ---
CQSUPPORTING DIAGNOSIS NEEDED A supporting diagnosis is required for the test/procedure performed on this patient in order for us to be reimbursed by the patient's insurance. Please provide a supporting diagnosis for the following test/procedure listed below next to the test name along with your signature. *If there is no additional diagnosis for this patient that would support the following test/procedure please document that below next to the test/procedure. Test(s)/Procedure(s) that require a supporting diagnosis: DOS 09/15/16 GLYCATED HEMOGLOBIN TEST BLOOD GLUCOSE TEST Provider Signature: Date: Thank you Oksana Corbin [employer] Information [employer] Once completed, please kindly fax back to [phone] For questions please call [phone]
== END | disposition home or self-care (01) ==
LOC: C.LAB1850 11:25
PROVIDERS: ATTEND Internal Medicine
DX: F41.9 Anxiety disorder, unspecified (principal)

== ENCOUNTER 2016-09-24 08:09 | Emergency (ER) | payer BC ==
[~2016-09-24] VITALS: Ht 152.4 cm; Wt 71.3 kg
[~2016-09-24 08:09] MED LIST changes: -CEPH500C PO; -FLUC100T4 PO; -TRAM-10 PO
[2016-09-24 08:12] VITALS: TEMP 36.6; Ht 152.4 cm; Wt 71.3 kg
[2016-09-24] MEDS ORDERED: ONDANSETRON INJ 2 MG/ML 2 ML VIAL IV STA (08:37)
[2016-09-24] MEDS ORDERED: MoRPHine SULFATE 2 MG/ML CARP IV STA (08:37)
--- NOTE | 2016-09-24 08:44 | EMERGENCY ROOM VISIT NOTE ---
History Report prepared by Marysol: Margoth Carnes Under the Supervision of: Dr. Brandy Nevarez M.D. First contact with patient: 08:17 Chief Complaint: VAGINAL BLEEDING Stated Complaint: IRRITATION, BLEEDING IN PRIVATE AREA History of Present Illness The patient is a 76 year old female who presents to the Emergency Room with complaints of persistent vaginal bleeding that began prior to arrival. She currently rates her discomfort as an 8/10 in severity. The patient states that she has been on Prednisone for an extended period of time for her Rheumatoid arthritis. She notes increased urination and bowel movements due to her Prednisone use. The patient reports that she began noticing irritation to her vaginal area for quite some time. She states that she last saw her plastic surgery assistant in April and was given Clotrimazole for the irritation. The patient states that she has been using the cream every time she urinates. She states that it only slightly alleviated the irritation. The patient notes that the notes burning with urination. She states that recently she began bleeding from the irritation. The patient states that she tried using cream for a diaper rash. She denies any fever. The patient denies being sexually active. Source of History: patient Onset: prior to arrival Position: other (vaginal) Symptom Intensity: 8/10 Quality: other (bleeding) Timing: other (persistent) Associated Symptoms: + urinary symptoms (burning with urination), No fevers Review of Systems See HPI for pertinent positives & negatives. A total of 10 systems reviewed and were otherwise negative. Past Medical & Surgical Medical Problems: (1) Rheumatoid arthritis Family History Patient reports no known family medical history. Social History Smoking Status: Never Smoker Marital Status: Housing Status: lives with significant other Occupation Status: retired Current/Historical Medications Scheduled Atorvastatin (Lipitor), 40 MG PO QPM B-Complex W/ Folic Acid (Super B Complex Maxi), 1 TAB PO QAM Calcium Carbonate (Caltrate 600), 1 TAB PO DAILY Cephalexin Monohydrate (Keflex), 500 MG PO TID Fluconazole (Diflucan), 1 TAB PO DAILY Folic Acid (Folic Acid), 1 MG PO DAILY Hctz/Spironolactone (Spironolactone/Hydrochlor 25-25 mg), 1 TAB PO BID Multivitamin (Multivitamin), 1 TAB PO QAM Pantoprazole (Protonix), 40 MG PO DAILY Prednisone (Prednisone), 10 MG PO DAILY Scheduled PRN Tramadol (Ultram), 1 TABS PO Q6 PRN for Pain Allergies Coded Allergies: No Known Allergies (Verified , 03/10/16) Physical Exam Vital Signs Date Time Temp Pulse Resp B/P (MAP) Pulse Ox O2 Delivery O2 Flow Rate FiO2 09/24/16 10:20 98 18 135/81 99 09/24/16 10:13 98 18 135/81 99 Room Air 09/24/16 08:12 36.6 123 18 156/103 99 Room Air Physical Exam Vital signs reviewed. General: Well-appearing female, in some discomfort, slightly tearful HEENT: No scleral icterus, PERRLA, neck supple. Atraumatic. Cardiovascular: Regular rate and rhythm, no extra sounds. Pulmonary: Clear to auscultation bilaterally, normal work of breathing. Abdomen: Obese. Soft, nontender, nondistended, positive bowel sounds. Peroneum: Significant erythema of the peroneum with satellite lesions surrounding the genitals. Significant swelling, irritation with white adherent discharge to the vulva. Periurethral swelling with mild excoriation with swollen vaginal-enteritis. Musculoskeletal: Atraumatic, no peripheral edema. Neurologic: Patient awake alert and oriented x 3 Skin: Warm, dry, no rash Medical Decision & Procedures Laboratory Results 09/24/16 08:30 Red Blood Count 5.23, Mean Corpuscular Volume 92.4, Mean Corpuscular Hemoglobin 31.7, Mean Corpuscular Hemoglobin Concent 34.4, Mean Platelet Volume 8.5, Neutrophils (%) (Auto) 58.5, Lymphocytes (%) (Auto) 31.5, Monocytes (%) (Auto) 7.9, Eosinophils (%) (Auto) 0.6, Basophils (%) (Auto) 0.3, Neutrophils # (Auto) 7.98, Lymphocytes # (Auto) 4.30, Monocytes # (Auto) 1.07, Eosinophils # (Auto) 0.08, Basophils # (Auto) 0.04 09/24/16 08:30 Test 09/24/16 08:30 White Blood Count 13.63 K/uL (4.8-10.8) Red Blood Count 5.23 M/uL (4.2-5.4) Hemoglobin 16.6 g/dL (12.0-16.0) Hematocrit 48.3 % (37-47) Mean Corpuscular Volume 92.4 fL (80-100) Mean Corpuscular Hemoglobin 31.7 pg (25-34) Mean Corpuscular Hemoglobin Concent 34.4 g/dl (32-36) Platelet Count 264 K/uL (130-400) Mean Platelet Volume 8.5 fL (7.4-10.4) Neutrophils (%) (Auto) 58.5 % Lymphocytes (%) (Auto) 31.5 % Monocytes (%) (Auto) 7.9 % Eosinophils (%) (Auto) 0.6 % Basophils (%) (Auto) 0.3 % Neutrophils # (Auto) 7.98 K/uL (1.4-6.5) Lymphocytes # (Auto) 4.30 K/uL (1.2-3.4) Monocytes # (Auto) 1.07 K/uL (0.11-0.59) Eosinophils # (Auto) 0.08 K/uL (0-0.5) Basophils # (Auto) 0.04 K/uL (0-0.2) RDW Standard Deviation 48.1 fL (36.4-46.3) RDW Coefficient of Variation 14.2 % (11.5-14.5) Immature Granulocyte % (Auto) 1.2 % Immature Granulocyte # (Auto) 0.16 K/uL (0.00-0.02) Anion Gap 13.0 mmol/L (3-11) Est Creatinine Clear Calc Drug Dose 39.5 ml/min Estimated GFR () 57.3 Estimated GFR (Non- 49.4 BUN/Creatinine Ratio 20.8 (10-20) Calcium Level 9.8 mg/dl (8.5-10.1) Total Bilirubin 0.6 mg/dl (0.2-1) Direct Bilirubin 0.2 mg/dl (0-0.2) Aspartate Amino Transf (AST/SGOT) 18 U/L (15-37) Alanine Aminotransferase (ALT/SGPT) 50 U/L (12-78) Alkaline Phosphatase 65 U/L (45-117) Total Protein 7.6 gm/dl (6.4-8.2) Albumin 4.0 gm/dl (3.4-5.0) Laboratory results per my review. Medications Administered Medications (Trade) Dose Ordered Sig/Isaac Route Start Time Stop Time Status Last Admin Dose Admin Morphine Sulfate (MoRPHine SULFATE INJ) 2 mg NOW STAT IV 09/24/16 08:37 09/24/16 08:39 DC 09/24/16 08:45 2 MG Ondansetron HCl (Zofran Inj) 4 mg NOW STAT IV 09/24/16 08:37 09/24/16 08:39 DC 09/24/16 08:44 4 MG Ceftriaxone Sodium (Rocephin Inj) 1 gm NOW STAT IV 09/24/16 08:53 09/24/16 08:54 DC 09/24/16 09:06 1 GM Fluconazole (Diflucan Tab) 100 mg NOW ONCE PO 09/24/16 10:15 09/24/16 10:16 DC 09/24/16 10:17 100 MG ED Course 0826: Past medical records reviewed. The patient was evaluated in room B10. A complete history and physical examination was performed. 0834: I discussed the patients case with Dr. Mulligan, beet flumer. She said dont do an internal exam, do not put any cream on it, she states to wash with water, pat dry, and keep as dry as possible. She said to treat with Diflucan for 7 days. 0837: Ordered Zofran Inj 4 mg IV, Morphine Sulfate 2 mg IV. 0839: I reevaluated the patient and I discussed the treatment plan with her. She is in agreement. 0853: Ordered Rocephin Inj 1 gm IV. 0933: I reevaluated the patient and she is resting comfortably. I discussed all the exam findings with her and I discussed the treatment plan. She verbalized complete understanding and agreement. She will be evaluated for further treatment. 1015: Ordered Diflucan Tab 100 mg PO. Medical Decision The patient is a 76 year old female who presents to the ED with complaints of vaginal bleeding. Differentials include cellulitis, yeast dermatitis, steroid dermatitis, contact dermatitis, STI, malignancy This patient was evaluated and appeared to be in some discomfort. IV access was obtained and laboratory work was drawn. Patient was placed on the shaping machine tender and found to be in a normal sinus rhythm. Blood pressure is stable. Physical examination reveals a significant vulvovaginitis with erythema and adherent white discharge. Dr. Mulligan of [facility] was consulted due to the patient 's complex medical history. Dr. Mulligan has advised not to do a pelvic exam at this point as it will likely caused the patient undue pain. She has recommended against an ultrasound for the same reason. She has been using oral and topical steroids. I suspect the patient's vaginitis is secondary to a steroid dermatitis with a superimposed yeast dermatitis. She was given 1 g of IV ceftriaxone for the possibility of a superimposed cellulitis. The patient was instructed on no topical agents. She will wash only with water and pat dry. The patient will be contacted by case management tomorrow to help establish a short interval follow-up with [facility] in the office. I do not see any need for urgent [facility] [employer] [facility] evaluation. Patient was discharged with a prescription for Diflucan 100 mg daily for 6 more days, Keflex 500 mg 4 times daily. She will cease using the steroid cream immediately. She will return to the ER for worsening of symptoms or any medical concerns. Medication Reconcilliation Current Medication List: was personally reviewed by me Blood Pressure Screening Patient's blood pressure: Elevated blood pressure Blood pressure disposition: Elevated BP felt to be situational, Did not require urgent referral Consults Time Called: 0833 Consulting Physician: Dr. Mulligan, beet flumer Returned Call: 0834 I discussed the patients case with Dr. Mulligan, beet flumer. She said dont do an internal exam, do not put any cream on it, she states to wash with water, pat dry, and keep as dry as possible. She said to treat with Diflucan for 7 days. Impression Primary Impression: Vaginitis and vulvovaginitis Scribe Attestation The scribe's documentation has been prepared under my direction and personally reviewed by me in its entirety. I confirm that the note above accurately reflects all work, treatment, procedures, and medical decision making performed by me. Departure Information Dispostion Home / Self-Care Prescriptions Cephalexin Monohydrate (Keflex) 500 Mg Cap 500 MG PO TID, #21 CAP Prov: Brandy Nevarez M.D. 09/24/16 Tramadol (Ultram) 50 Mg Tab 1 TABS PO Q6 Y for Pain, #20 TAB Prov: Brandy Nevarez M.D. 09/24/16 Fluconazole (DIFLUCAN) 100 Mg Tab 1 TAB PO DAILY for 7 Days, #7 TAB Prov: Brandy Nevarez M.D. 09/24/16 Referrals Rajinder Denise M.D. (PCP) Sandy Mulligan MD Forms HOME CARE DOCUMENTATION FORM, IMPORTANT VISIT INFORMATION, WORK / SCHOOL INSTRUCTIONS Patient Instructions My [facility] Additional Instructions Diagnosis: Vaginitis, vulvovaginitis Diflucan 100 mg daily for 7 days. You have been given your first dose in the emergency department. Keflex 500 mg 3 times daily for 7 days. Please wash with water only. Patent dry with a clean towel. Only wear loose cotton underwear and loose cotton pants. Do not apply any topical ointments or creams. If you need some vaginal lubricant, you can apply a minimal amounts of water soluble KY jelly up to 3 times daily. Ultram 50 mg every 6 hours as needed for significant pain. Tylenol 650 mg every 6 hours as needed for less significant pain. Follow-up with [facility] as scheduled for you by case management. You should be contacted tomorrow with an appointment time for later this week. Return to the emergency department for worsening of symptoms or any medical concerns.
[2016-09-24 08:50] LABS: BASO % 0.3 %; BASO ABS # 0.04 K/uL (0-0.2); COMPLETE YES; EOS % 0.6 %; HEMATOCRIT 48.3 % (37-47); IG% 1.2 %; LYMPH % 31.5 %; MEAN CELL VOLUME 92.4 fL (80-100); MEAN CORPUSCULAR HEMOGLOBIN 31.7 pg (25-34); MEAN CORPUSCULAR HGB CONC 34.4 g/dl (32-36); MEAN PLATELET VOLUME 8.5 fL (7.4-10.4); MONO % 7.9 %; NEUT % 58.5 %; PLATELET COUNT 264 K/uL (130-400); RED BLOOD COUNT 5.23 M/uL (4.2-5.4); WHITE BLOOD COUNT 13.63 K/uL (4.8-10.8)
[2016-09-24] MEDS ORDERED: CEFTRIAXONE SOD INJ 1 GM ADDVIAL IV STA (08:53)
[2016-09-24 09:08] LABS: BUN/CREATININE RATIO 20.8 (10-20); CALCIUM 9.8 mg/dl (8.5-10.1); CREATININE 1.1 mg/dl (0.60-1.20); POTASSIUM 3.1 mmol/L (3.5-5.1)
[2016-09-24] MEDS ORDERED: TRAM-10 PO (10:07)
[2016-09-24] MEDS ORDERED: FLUC100T4 PO (10:07)
[2016-09-24] MEDS ORDERED: CEPH500C PO (10:07)
[2016-09-24] MEDS ORDERED: FLUCONAZOLE 50 MG TAB PO ONE (10:15)
[2016-09-24 10:20] VITALS: BP 135/81; PULSE 98; O2SAT 99
== END 2016-09-24 10:20 | disposition home or self-care (01) ==
LOC: C.EDB 08:10
DX: N76.0 Acute vaginitis (principal); M06.9 Rheumatoid arthritis, unspecified; Z79.899 Other long term (current) drug therapy

== ENCOUNTER → 2016-10-16 | Outpatient (CLI) | payer BC ==
[~2016-10-16] MED LIST changes: -ADAL40KI SC; +CEPH500C PO; -METH2.5T PO; +TRAM-10 PO
[2016-10-16 09:40] LABS: BASO % 0.3 %; BASO ABS # 0.03 K/uL (0-0.2); COMPLETE YES; HEMATOCRIT 49.6 % (37-47); IG% 1.3 %; LYMPH ABS # 3.89 K/uL (1.2-3.4); MEAN CELL VOLUME 92.5 fL (80-100); MEAN CORPUSCULAR HEMOGLOBIN 30.4 pg (25-34); MEAN CORPUSCULAR HGB CONC 32.9 g/dl (32-36); MEAN PLATELET VOLUME 8.7 fL (7.4-10.4); NEUT % 43.4 %; PLATELET COUNT 290 K/uL (130-400); RED BLOOD COUNT 5.36 M/uL (4.2-5.4); WHITE BLOOD COUNT 8.64 K/uL (4.8-10.8)
[2016-10-16 10:01] LABS: ALT/SGPT 69 U/L (12-78); AST/SGOT 25 U/L (15-37); CREATININE 0.91 mg/dl (0.60-1.20)
== END | disposition home or self-care (01) ==
LOC: C.LAB1850 07:35
PROVIDERS: ATTEND Internal Medicine Rheumatology
DX: Z79.52 Long term (current) use of systemic steroids (principal); M05.9 Rheumatoid arthritis with rheumatoid factor, unspecified; Z79.899 Other long term (current) drug therapy

== ENCOUNTER → 2016-11-28 | Outpatient (CLI) | payer BC ==
[2016-11-28 12:22] LABS: BASO % 0.5 %; BASO ABS # 0.04 K/uL (0-0.2); COMPLETE YES; EOS % 1.8 %; HEMATOCRIT 49.1 % (37-47); IG% 0.5 %; LYMPH % 45.4 %; LYMPH ABS # 3.81 K/uL (1.2-3.4); MEAN CELL VOLUME 94.6 fL (80-100); MEAN CORPUSCULAR HEMOGLOBIN 30.8 pg (25-34); MEAN CORPUSCULAR HGB CONC 32.6 g/dl (32-36); MEAN PLATELET VOLUME 8.8 fL (7.4-10.4); MONO % 9.2 %; NEUT % 42.6 %; PLATELET COUNT 264 K/uL (130-400); RED BLOOD COUNT 5.19 M/uL (4.2-5.4)
[2016-11-28 12:39] LABS: ALT/SGPT 64 U/L (12-78); CREATININE 0.98 mg/dl (0.60-1.20)
[2016-11-28 12:41] LABS: ALKALINE PHOSPHATASE 45 U/L (45-117); AST/SGOT 24 U/L (15-37)
== END | disposition home or self-care (01) ==
LOC: C.LAB1850 09:49
PROVIDERS: ATTEND Internal Medicine Rheumatology
DX: E11.9 Type 2 diabetes mellitus without complications (principal); M05.9 Rheumatoid arthritis with rheumatoid factor, unspecified; Z79.899 Other long term (current) drug therapy

== ENCOUNTER → 2017-01-22 | Outpatient (CLI) | payer BC ==
[2017-01-22 12:43] LABS: BASO % 0.4 %; BASO ABS # 0.04 K/uL (0-0.2); COMPLETE YES; EOS % 0.9 %; HEMATOCRIT 48.5 % (37-47); IG% 0.5 %; LYMPH % 41.9 %; LYMPH ABS # 4.25 K/uL (1.2-3.4); MEAN CELL VOLUME 95.1 fL (80-100); MEAN CORPUSCULAR HEMOGLOBIN 32.2 pg (25-34); MEAN CORPUSCULAR HGB CONC 33.8 g/dl (32-36); MEAN PLATELET VOLUME 8.7 fL (7.4-10.4); MONO % 9.5 %; NEUT % 46.8 %; PLATELET COUNT 246 K/uL (130-400); WHITE BLOOD COUNT 10.15 K/uL (4.8-10.8)
[2017-01-22 14:09] LABS: ALKALINE PHOSPHATASE 43 U/L (45-117); ALT/SGPT 61 U/L (12-78); AST/SGOT 19 U/L (15-37); CREATININE 0.95 mg/dl (0.60-1.20)
== END | disposition home or self-care (01) ==
LOC: C.LAB1850 10:41
PROVIDERS: ATTEND Internal Medicine Rheumatology
DX: Z79.52 Long term (current) use of systemic steroids (principal); M05.9 Rheumatoid arthritis with rheumatoid factor, unspecified; Z79.899 Other long term (current) drug therapy

== ENCOUNTER → 2017-02-28 | Outpatient (CLI) | payer BC ==
[~2017-02-28] MED LIST changes: +GLC/500 PO; +PRD/1 PO; +[UNRECOGNIZED DRUG - CODE] IV
--- NOTE | 2017-02-28 13:44 | DIAGNOSTIC IMAGING REPORT ---
PARANASAL SINUSES 4 VIEWS CLINICAL HISTORY: Acute sinusitis. FINDINGS: 4 views of the paranasal sinuses are obtained. No prior studies are available for comparison at the time of dictation. The skeletal structures are osteopenic. There is no radiographic evidence of paranasal sinus disease. The mastoid air cells appear well-pneumatized. The bony orbits are intact as imaged. The visualized calvarium appears intact. IMPRESSION: There is no radiographic evidence of paranasal sinus disease. Electronically signed by: Ed Bowman M.D. 02/28/2017 1:43 PM Dictated Date/Time: 02/28/2017 1:42 PM
== END | disposition home or self-care (01) ==
LOC: C.RAD1850 13:26
PROVIDERS: ATTEND Physician Assistant
DX: J01.90 Acute sinusitis, unspecified (principal)

== ENCOUNTER → 2017-03-12 | Outpatient (CLI) | payer BC ==
[~2017-03-12] MED LIST changes: -GLC/500 PO; -PRD/1 PO; -[UNRECOGNIZED DRUG - CODE] IV
[2017-03-12 09:45] LABS: BASO % 0.3 %; BASO ABS # 0.03 K/uL (0-0.2); EOS % 1.3 %; EOS ABS # 0.14 K/uL (0-0.5); HEMATOCRIT 47.9 % (37-47); HEMOGLOBIN 16.6 g/dL (12.0-16.0); IG# 0.08 K/uL (0.00-0.02); LYMPH % 44.9 %; LYMPH ABS # 4.98 K/uL (1.2-3.4); MEAN CELL VOLUME 95.8 fL (80-100); MEAN CORPUSCULAR HEMOGLOBIN 33.2 pg (25-34); MEAN CORPUSCULAR HGB CONC 34.7 g/dl (32-36); MEAN PLATELET VOLUME 8.8 fL (7.4-10.4); MONO % 7.2 %; NEUT % 45.6 %; NEUT ABS # 5.07 K/uL (1.4-6.5); PLATELET COUNT 278 K/uL (130-400)
[2017-03-12 10:02] LABS: ALBUMIN 4.2 gm/dl (3.4-5.0); ALT/SGPT 64 U/L (12-78); AST/SGOT 13 U/L (15-37); CREATININE 1.03 mg/dl (0.60-1.20)
[2017-03-12 10:05] LABS: ALKALINE PHOSPHATASE 144 U/L (45-117); TOTAL PROTEIN 7.3 gm/dl (6.4-8.2)
== END | disposition home or self-care (01) ==
LOC: C.LAB1850 08:17
PROVIDERS: ATTEND Internal Medicine
DX: E11.9 Type 2 diabetes mellitus without complications (principal); M05.9 Rheumatoid arthritis with rheumatoid factor, unspecified; Z79.4 Long term (current) use of insulin; Z79.52 Long term (current) use of systemic steroids; Z79.899 Other long term (current) drug therapy

== ENCOUNTER → 2017-04-18 | Outpatient (CLI) | payer BC ==
[~2017-04-18] MED LIST changes: -CEPH500C PO; -TRAM-10 PO
== END | disposition home or self-care (01) ==
LOC: C.LAB1850 13:00
PROVIDERS: ATTEND Internal Medicine
DX: M54.30 Sciatica, unspecified side (principal)

== ENCOUNTER → 2017-04-27 | Outpatient (CLI) | payer BC ==
--- NOTE | 2017-04-27 12:36 | DIAGNOSTIC IMAGING REPORT ---
CHEST 2 VIEWS ROUTINE CLINICAL HISTORY: Chronic constipation. Back pain. Anxiety. COMPARISON STUDY: Chest CT July 03, 2016 and chest radiograph July 12, 2016. FINDINGS: Lung volumes are normal. There is no pneumothorax or pleural effusion. Lower lung interstitial thickening is similar to previous exams and likely chronic. There is no superimposed consolidation. The appearance of the chest is unchanged. IMPRESSION: 1. No acute cardiopulmonary findings. 2. No change in lower lung interstitial thickening which is likely chronic. Electronically signed by: Ras Henderson M.D. 04/27/2017 12:35 PM Dictated Date/Time: 04/27/2017 12:34 PM
== END | disposition home or self-care (01) ==
LOC: C.RAD1850 12:26
PROVIDERS: ATTEND Internal Medicine
DX: F41.9 Anxiety disorder, unspecified (principal); H26.9 Unspecified cataract; K59.09 Other constipation; M54.9 Dorsalgia, unspecified; R05 Cough

== ENCOUNTER → 2017-05-04 | Outpatient (CLI) | payer BC ==
--- NOTE | 2017-05-04 10:45 | DIAGNOSTIC IMAGING REPORT ---
LUMBAR SPINE MRI HISTORY: Low back pain. Left leg pain. STENOSIS TECHNIQUE: Multiplanar multisequence MRI of the lumbar spine was performed without the use of contrast. COMPARISON: Lumbar spine 03/30/2017. FINDINGS: For the purpose of the report the L5-S1 disc space will be located on axial image 25 of 28. Production Service Manager images demonstrate a T2 hyperintense, T1 hypointense 6.2 cm round lesion within the left adnexa. This favors an ovarian cyst. There is a 1 cm T1 and T2 hyperintense lesion within the L2 vertebral body consistent with a hemangioma. No suspicious osseous lesions identified. Moderate to severe compression fracture at L5 which demonstrates greater than 50% loss of height centrally. There is mild edema within the L5 vertebral body and mild paravertebral edema. There is also nondisplaced fracture at the inferior endplate of L4. This also demonstrates mild edema. These are consistent with acute to subacute compression fractures. No significant retropulsion. The conus terminates at L1. Mild disc space narrowing at L1-L2 and L2-L3. Mild to moderate facet degenerative changes within the lower lumbar spine. Incidental note is made of a horseshoe kidney. L1-L2: No significant central canal or neural foraminal narrowing. L2-L3: Focal central disc extrusion demonstrating mild superior subligamentous migration. This measures 15 (cc) x 6 (TV) x 5 (AP) mm. However, there is no significant central canal or neural foraminal narrowing. L3-L4: Small broad-based posterior disc bulge with facet hypertrophy resulting and [id number] bilateral neural foraminal narrowing. No significant central canal narrowing. L4-L5: Broad-based posterior disc bulge with ligamentum and facet hypertrophy resulting in mild central canal and moderate bilateral neural foraminal narrowing. L5-S1: No central canal or left-sided neural foraminal narrowing. Mild right-sided neural foraminal narrowing due to the facet hypertrophy. IMPRESSION: 1. Acute to subacute moderate to severe compression fracture at L5. No significant retropulsion. 2. Acute to subacute nondisplaced inferior endplate compression fracture at L4. 3. Mild central canal and moderate bilateral neural foraminal narrowing at L4-L5 due to the broad-based posterior disc bulge. 4. Focal central disc extrusion at L2-L3 without significant central canal or neural foraminal narrowing. 5. Horseshoe kidney. 6. A partially visualized 6.2 cm cyst within the left adnexa, likely ovarian. This would be considered pathologic in a postmenopausal female. Follow-up pelvic ultrasound recommended for further evaluation. Electronically signed by: Israel Burk M.D. 05/04/2017 10:44 AM Dictated Date/Time: 05/04/2017 10:33 AM
== END | disposition home or self-care (01) ==
LOC: C.MRI 09:29
PROVIDERS: ATTEND Orthopaedic Surgery Orthopaedic Surgery of the Spine
DX: M48.061 Spinal stenosis, lumbar region without neurogenic claudication (principal)

== ENCOUNTER → 2017-05-17 | Outpatient (CLI) | payer BC ==
[~2017-05-17] MED LIST changes: +GLC/500 PO; +[UNRECOGNIZED DRUG - CODE] IV
[2017-05-17 09:36] LABS: BASO % 0.8 %; BASO ABS # 0.07 K/uL (0-0.2); EOS ABS # 0.18 K/uL (0-0.5); HEMATOCRIT 46.1 % (37-47); HEMOGLOBIN 16.2 g/dL (12.0-16.0); IG# 0.04 K/uL (0.00-0.02); LYMPH % 44.5 %; LYMPH ABS # 4.08 K/uL (1.2-3.4); MEAN CELL VOLUME 94.9 fL (80-100); MEAN CORPUSCULAR HEMOGLOBIN 33.3 pg (25-34); MEAN CORPUSCULAR HGB CONC 35.1 g/dl (32-36); MEAN PLATELET VOLUME 8.8 fL (7.4-10.4); MONO % 10.6 %; MONO ABS # 0.97 K/uL (0.11-0.59); NEUT % 41.7 %; NEUT ABS # 3.82 K/uL (1.4-6.5); PLATELET COUNT 277 K/uL (130-400); RED CELL DISTRIBUTION WIDTH CV 13.7 % (11.5-14.5); RED CELL DISTRIBUTION WIDTH SD 46.9 fL (36.4-46.3); WHITE BLOOD COUNT 9.16 K/uL (4.8-10.8)
[2017-05-17 09:48] LABS: ALBUMIN 4.3 gm/dl (3.4-5.0); ALT/SGPT 123 U/L (12-78)
[2017-05-17 09:51] LABS: ALKALINE PHOSPHATASE 77 U/L (45-117); AST/SGOT 35 U/L (15-37); TOTAL PROTEIN 7.6 gm/dl (6.4-8.2)
== END | disposition home or self-care (01) ==
LOC: C.LAB1850 07:48
PROVIDERS: ATTEND Internal Medicine Rheumatology
DX: M05.9 Rheumatoid arthritis with rheumatoid factor, unspecified (principal); Z79.899 Other long term (current) drug therapy

== ENCOUNTER → 2017-05-18 | Outpatient (CLI) | payer BC ==
--- NOTE | 2017-05-18 11:24 | DIAGNOSTIC IMAGING REPORT ---
EXAMINATION: PELVIC ULTRASOUND (transabdominal and endovaginal scanning. CLINICAL HISTORY: Cystic left adnexal mass. Abnormal MRI study. COMPARISON STUDY: MRI the lumbar spine dated 05/04/2017 FINDINGS: The uterus measured 6 x 2.8 x 4 cm.. The endometrial stripe measured 6 mm. There is a 7 mm endometrial cyst. The right ovary was not visualized. There is a 6.2 x 5.6 x 4.8 cm cystic lesion within the left adnexa. No internal septations were visualized. There was no evidence of pathologic free pelvic fluid. IMPRESSION: 1. 6.2 x 5.6 x 4.8 cm cystic lesion within the left adnexa. No internal septations or mural nodules were visualized. While likely related to the left ovary, no normal ovarian tissue was visualized to exactly define its location. 2. Nonvisualization the right ovary 3. 7 mm endometrial cyst Electronically signed by: Sukhdeep Maldonado M.D. 05/18/2017 11:22 AM Dictated Date/Time: 05/18/2017 11:18 AM
== END | disposition home or self-care (01) ==
LOC: C.ULTR 09:45
PROVIDERS: ATTEND Orthopaedic Surgery Orthopaedic Surgery of the Spine
DX: N85.8 Other specified noninflammatory disorders of uterus (principal); N83.8 Other noninflammatory disorders of ovary, fallopian tube and broad ligament

== ENCOUNTER 2017-07-05 11:18 | Observation (INO) | payer BC, OTHER ==
[2017-05-21 13:02] VITALS: BMI 31.0
[2017-05-21 13:15] VITALS: BMI 31.0
--- NOTE | 2017-05-21 14:04 | PAT Medication Instructions ---
Service Date May 21, 2017. Current Home Medication List Atorvastatin (Lipitor), 40 MG PO QPM B-Complex W/ Folic Acid (Super B Complex Maxi), 1 TAB PO QAM Calcium Carbonate (Caltrate 600), 1 TAB PO QAM Hctz/Spironolactone (Spironolactone/Hydrochlor 25-25 mg), 1 TAB PO BID Metformin Hcl (Glucophage), 500 MG PO BID Multivitamin (Multivitamin), 1 TAB PO QAM Pantoprazole (Protonix), 40 MG PO QAM Prednisone (Prednisone), 6 MG PO DAILY Tocilizumab (Actemra), 600 MG IV MONTHLY Medication Instructions For Your Scheduled Surgery - Check with prescribing physician for instructions: Tocilizumab (Actemra), 600 MG IV MONTHLY - Hold the following medications the morning of surgery: B-Complex W/ Folic Acid (Super B Complex Maxi), 1 TAB PO QAM Calcium Carbonate (Caltrate 600), 1 TAB PO QAM Hctz/Spironolactone (Spironolactone/Hydrochlor 25-25 mg), 1 TAB PO BID Metformin Hcl (Glucophage), 500 MG PO BID Multivitamin (Multivitamin), 1 TAB PO QAM - Take the following medications the morning of surgery with a sip of water: Prednisone (Prednisone), 6 MG PO DAILY (possible plan for taper in near future- to discuss with elementary school counselor) Pantoprazole (Protonix), 40 MG PO QAM - Take the following medications as scheduled the night before surgery: Metformin Hcl (Glucophage), 500 MG PO BID Hctz/Spironolactone (Spironolactone/Hydrochlor 25-25 mg), 1 TAB PO BID Atorvastatin (Lipitor), 40 MG PO QPM If you have any questions please call us at [phone] or [phone] or [phone]
--- NOTE | 2017-05-21 14:22 | DIAGNOSTIC IMAGING REPORT ---
CHEST 2 VIEWS ROUTINE CLINICAL HISTORY: 76 years-old Female presenting with preoperative assessment. TECHNIQUE: PA and lateral views of the chest were obtained. COMPARISON: 04/27/2017. FINDINGS: Atherosclerosis of the aortic arch. Cardiac silhouette normal in size. Lungs and pleural spaces clear. Degenerative changes of the thoracic spine. Upper abdomen normal. IMPRESSION: 1. No acute cardiopulmonary disease. Electronically signed by: Bryant Beasley M.D. 05/21/2017 2:21 PM Dictated Date/Time: 05/21/2017 2:20 PM
--- NOTE | 2017-05-21 14:31 | DIAGNOSTIC IMAGING REPORT ---
LATERAL RADIOGRAPHS OF THE CERVICAL SPINE IN THE NEUTRAL, FLEXION AND EXTENSION POSITIONS CLINICAL HISTORY: Preoperative evaluation. Rheumatoid arthritis. COMPARISON STUDY: No previous studies for comparison. FINDINGS: There is 2 mm anterolisthesis of C6 on C7 which does not change with flexion or extension. There is no evidence for atlantoaxial instability on this exam. There is severe multilevel facet arthrosis. There is mild to moderate multilevel degenerative disc disease. No fracture is identified. IMPRESSION: 1. No evidence for cervical spine instability during flexion or extension. 2. Minimal anterolisthesis of C6 on C7 which does not change with extension or flexion. 3. Severe multilevel facet arthrosis and mild to moderate multilevel degenerative disc disease. Electronically signed by: Ras Henderson M.D. 05/21/2017 2:29 PM Dictated Date/Time: 05/21/2017 2:27 PM
[2017-05-21 14:47] LABS: CALCIUM 10.2 mg/dl (8.5-10.1); CREATININE 1.09 mg/dl (0.60-1.20)
[2017-05-21 14:48] LABS: PTT PATIENT 21.6 SECONDS (21.0-31.0)
--- NOTE | 2017-07-04 18:40 | HISTORY & PHYSICAL EXAMINATION ---
DATE OF ADMISSION: 07/05/2017 CHIEF COMPLAINT: Back and lower extremity difficulty including foraminal stenosis of lumbar spine, nerve root impingement. HISTORY OF PRESENT ILLNESS: Lizzette is a most delightful 76-year-old female, I have followed her for month. She has a fairly incapacitating lower extremity difficulty. She cannot get better with conservative measures. She also has some trace weakness. She is here for surgical intervention at [facility] on 07/05/2017. PAST MEDICAL HISTORY: Rheumatoid arthritis. No hypertension, COPD. PAST SURGICAL HISTORY: No past surgery. ALLERGIES: Negative. SOCIAL HISTORY: She is . Minimal alcohol, no tobacco. Little activity. REVIEW OF SYSTEMS: Twelve-system review, no fevers, sweats, chills. Ear, nose and throat negative. No chest pain, palpitations. No asthma, wheezing. No nausea or vomiting. No urgency or frequency. Has mostly musculoskeletal, neurological issues of paresthesias, numbness and tingling. MEDICATIONS: Lipitor, prednisone, metformin, spironolactone. PHYSICAL EXAMINATION: GENERAL: 5 feet, 158 pounds, in distress. VITAL SIGNS: Blood pressure 140/80, pulse 80, respiratory rate 16, afebrile. HEENT: Essentially normal. CARDIAC: Normal S1, S2. No S3. LUNGS: Clear to auscultation. No rales, rhonchi or wheezing. ABDOMEN: Soft, nontender, bowel sounds present. She has decreased range of motion of the lumbar spine. Pain with percussion, lower extremity difficulty, paresthesias, slight weakness and slight pain with straight leg raising, minimal gait abnormality. IMAGES: Demonstrate stenosis of the spine, nerve root irritation, particularly 4-5. IMPRESSION: Stenosis lumbar spine, 4-5. DISPOSITION: Includes a laminectomy, 4-5 lumbar spine, [facility], 07/05/2017.
[2017-07-05] VITALS (7 sets, daily range): BP systolic 120–163; BP diastolic 74–98; PULSE 88–111; TEMP 36.3–36.5; O2SAT 96–100; Ht 152.4 cm; Wt 71.8 kg
[~2017-07-05] VITALS: Ht 152.4 cm; Wt 71.8 kg
[~2017-07-05 11:18] MED LIST changes: +ACETAMINOPHEN 500 MG TAB PO SCH; +ACETAMINOPHEN IV 100 ML IV SCH; +CEFAZOLIN 2000MG IV PUSH 15 ML IV SCH; -FLV1 PO; +LACTATED RINGER'S 1000ML 1,000 ML IV SCH; +NSS 1000ML IV SCH
[2017-07-05] MEDS ORDERED: PRD/1 PO ×2 (12:42)
[2017-07-05] MEDS ORDERED: ACETAMINOPHEN 1000 MG/100 ML IV IV ONE (13:12)
[2017-07-05] MEDS ORDERED: MIDAZOLAM HCL 1 MG/ML 2ML VIAL ONE (13:24)
[2017-07-05] MEDS ORDERED: FENTANYL CITRATE INJ 50 MCG/1 ML 2 ML VIAL ONE ×2 (13:25→14:59)
[2017-07-05] MEDS ORDERED: VANCOMYCIN HCL 1000MG/20ML VIAL ONE (14:12)
[2017-07-05] MEDS ORDERED: BACITRACIN 50000 UNIT VIAL ONE (14:12)
[2017-07-05] MEDS ORDERED: GELATIN SPONGE SZ 100 ONE ×2 (14:12→14:43)
[2017-07-05] MEDS ORDERED: BUPIVACAINE 0.5 % 5 MG/1 ML MPF 30ML VIAL ONE (14:12)
[2017-07-05] MEDS ORDERED: THROMBIN FOR SOLN 20000 UNIT KIT ONE (14:12)
--- NOTE | 2017-07-05 14:25 | History & Physical Bridge Note ---
H&P Re-Evaluation Bridge Note: I have examined the patient, reviewed the History & Physical and in the interval since the performance of the History & Physical I have noted the following changes of clinical significance: No changes noted
[2017-07-05] MEDS ORDERED: HYDROmorphone INJ 2 MG/ML SYR/VIAL ONE (15:08)
[2017-07-05] MEDS ORDERED: ROCURONIUM BROMIDE 10 MG/ML 5 ML VIAL ONE (15:13)
[2017-07-05] MEDS ORDERED: LIDOCAINE HCL 2% 2 ML VIAL (20MG/ML) ONE (15:13)
[2017-07-05] MEDS ORDERED: DEXAMETHASONE SOD INJ 4 MG/ML VIAL ONE (15:14)
[2017-07-05] MEDS ORDERED: ONDANSETRON INJ 2 MG/ML 2 ML VIAL ONE (15:14)
[2017-07-05] MEDS ORDERED: PROPOFOL IV EMULSION 10 MG/ML 20 ML VIAL ONE (15:14)
[2017-07-05] MEDS ORDERED: NEOSTIGMINE METHYLSULFATE 1 MG/ML 10ML VIAL ONE (15:41)
[2017-07-05] MEDS ORDERED: GLYCOPYRROLATE INJ 0.2 MG/ML VIAL ONE (15:41)
--- NOTE | 2017-07-05 15:57 | [facility] Post Operative Brief Note ---
Immediate Operative Summary Operative Date July 05, 2017. Pre-Operative Diagnosis Spinal stenosis lumbar spine L4-L5 Post-Operative Diagnosis Spinal stenosis lumbar spine L4-L5 Procedure(s) Performed L4-L5 Laminectomy Surgeon Dr. Luis Price Vacuum Cleaner Repair Person Surgeon(s) Fidencio Pham PA-C Estimated Blood Loss 50ml Findings Consistent with Post-Op Diagnosis Specimens None per surgeon Anesthesia Type General Complication(s) none
[2017-07-05] MEDS ORDERED: PROMETHAZINE HCL INJ 12.5 MG in SODIUM CHLORIDE 0.9% 50ML 50 ML IV PRN ×2 (16:15→17:00)
[2017-07-05] MEDS ORDERED: NALOXONE HCL 0.4 MG/1 ML VIAL/CARP IV PRN (16:15)
[2017-07-05] MEDS ORDERED: FLUMAZENIL 0.1 MG/1 ML 10 ML VIAL IV PRN (16:15)
[2017-07-05] MEDS ORDERED: HYDROmorphone INJ 2 MG/ML SYR/VIAL IV PRN ×2 (16:15→17:00)
[2017-07-05] MEDS ORDERED: ATROPINE SULFATE 0.1 MG/ML 5ML SYR IV PRN (16:15)
[2017-07-05] MEDS ORDERED: ONDANSETRON INJ 2 MG/ML 2 ML VIAL IV PRN ×2 (16:15→17:00)
[2017-07-05] MEDS ORDERED: LABETALOL HCL IV 5 MG/ML 20ML IV PRN (16:15)
[2017-07-05] MEDS ORDERED: EpHEDrine SULFATE INJ 50 MG/ML AMP IV PRN (16:15)
[2017-07-05] MEDS ORDERED: LABETALOL HCL IV 5 MG/ML 20ML ONE (16:20)
[2017-07-05] MEDS ORDERED: MAGNESIUM HYDROXIDE SUSP 30 ML UDC PO PRN (17:00)
[2017-07-05] MEDS ORDERED: HYDROmorphone INJ 0.5 MG/0.5 ML SYR IV PRN (17:00)
[2017-07-05] MEDS ORDERED: LORAZEPAM INJ 1 MG in SYRINGE 0 ML IV PRN (17:00)
[2017-07-05] MEDS ORDERED: LORAZEPAM 1 MG TAB PO PRN (17:00)
[2017-07-05] MEDS ORDERED: OXYCODONE/ACETAMINOPHEN 5-325 TAB PO PRN ×2 (17:00)
[2017-07-05] MEDS ORDERED: METOCLOPRAMIDE HCL INJ 5 MG/ML 2 ML VIAL IV PRN (17:00)
[2017-07-05] MEDS ORDERED: CEFAZOLIN IV 1,000 MG in DEXTROSE 5% 50ML 50 ML IV SCH (17:00)
--- NOTE | 2017-07-05 17:17 | Anesthesiology Progress Note ---
Anesthesia Post Op Note Date & Time July 05, 2017 at 17:17 Vital Signs Pain Intensity: 0 Vital Signs Past 12 Hours Date Time Temp Pulse Resp B/P (MAP) Pulse Ox O2 Delivery O2 Flow Rate FiO2 07/05/17 17:10 36.2 88 14 147/84 100 Nasal Cannula 2 07/05/17 17:05 88 14 157/77 100 Nasal Cannula 2 07/05/17 16:55 88 14 161/91 100 Nasal Cannula 2 07/05/17 16:45 88 14 156/85 100 Oxymask 10 07/05/17 16:35 88 14 151/87 100 Oxymask 10 07/05/17 16:25 88 14 153/86 100 Oxymask 10 07/05/17 16:16 36.1 117 14 184/109 Oxymask 10 07/05/17 12:10 36.4 111 20 156/98 (117) 96 Room Air Notes Mental Status: alert / awake / arousable, participated in evaluation Pt Amnestic to Procedure: Yes Nausea / Vomiting: adequately controlled Pain: adequately controlled Airway Patency, RR, SpO2: stable & adequate BP & HR: stable & adequate Hydration State: stable & adequate Anesthetic Complications: no major complications apparent
[2017-07-05 18:09] LABS: HEMATOCRIT 42.5 % (37-47); HEMOGLOBIN 14.6 g/dL (12.0-16.0)
[2017-07-05] MEDS ORDERED: METFORMIN HCL 500 MG TAB PO SCH (18:30)
[2017-07-05] MEDS ORDERED: IV FLUIDS COMPLETED PRN (18:30)
[2017-07-05] MEDS: SPIRONOLACTONE/HCTZ 25-25 PO SCH (18:30)
[2017-07-05] MEDS: DEXAMETHASONE INJ 10 MG in SYRINGE 0 ML IV SCH (19:30)
--- NOTE | 2017-07-05 20:54 | DIAGNOSTIC IMAGING REPORT ---
SPINE ONE VIEW, ANY LEVEL HISTORY: 76 years-old Female L4-L5 LAMINECTOMY COMPARISON: MRI lumbar spine 05/04/2017 TECHNIQUE: Single lateral spot fluoroscopic image of the lumbar spine was obtained utilizing 1.6 seconds fluoroscopy time FINDINGS: Orthopedic hardware is seen adjacent to the posterior aspect of the L4 vertebral body. Radiopaque material is noted within the adjacent deep soft tissues. Remote compression deformity of the L5 vertebral body with multilevel spondylitic spurring. IMPRESSION: Fluoroscopic assistance as above. Please see operative report for further details. The above report was generated using voice recognition software. It may contain grammatical, syntax or spelling errors. Electronically signed by: Live Magana M.D. 07/05/2017 8:52 PM Dictated Date/Time: 07/05/2017 8:51 PM
[2017-07-05] MEDS ORDERED: ATORVASTATIN 40 MG TAB PO SCH (21:00)
[2017-07-05] MEDS: CEFAZOLIN IV 1,000 MG in SYRINGE 0 ML IV SCH (21:42)
[2017-07-05] MEDS: ACETAMINOPHEN 325 MG TAB PO PRN (21:48)
[2017-07-06] MEDS: DEXAMETHASONE INJ 10 MG in SYRINGE 0 ML IV SCH ×2 (02:32→10:20)
[2017-07-06] MEDS: SODIUM CHLORIDE 0.9% 1000ML 1,000 ML IV SCH ×2 (02:32→13:44)
[2017-07-06 02:50] VITALS: BP 130/84; PULSE 103; TEMP 36.6; O2SAT 98
[2017-07-06] MEDS: CEFAZOLIN IV 1,000 MG in SYRINGE 0 ML IV SCH ×2 (05:30→14:22)
[2017-07-06] MEDS ORDERED: BISACODYL 5 MG TABEC PO PRN (06:00)
[2017-07-06] MEDS ORDERED: BISACODYL 10 MG SUPP PR PRN (06:00)
--- NOTE | 2017-07-06 07:32 | Discharge Instructions ---
Discharge Instructions Date of Service July 06, 2017. Admission Reason for Admission: Spinal Stenosis Discharge Discharge Diagnosis / Problem: same Discharge Goals Goal(s): Improve function Activity Recommendations Activity Limitations: as noted below Lifting Limitations: no more than 5 pounds Exercise/Sports Limitations: until after follow-up appointment Shower/Bathe: keep incision dry home, rest, recover . Current Hospital Diet Patient's current hospital diet: Regular Diet Discharge Diet Recommended Diet: Regular Diet Procedures Procedures Performed: L4-L5 Laminectomy Pending Studies Studies pending at discharge: no Medical Emergencies . Who to Call and When: Medical Emergencies: If at any time you feel your situation is an emergency, please call 911 immediately. . Non-Emergent Contact Non-Emergency issues call your: Primary Care Provider . "Provider Documentation" section prepared by Luis Price. .
--- NOTE | 2017-07-06 07:51 | Anesthesiology Progress Note ---
Anesthesia Post Op Note Date & Time July 06, 2017 at 07:51 Vital Signs Pain Intensity: 4.0 Vital Signs Past 12 Hours Date Time Temp Pulse Resp B/P (MAP) Pulse Ox O2 Delivery O2 Flow Rate FiO2 07/06/17 02:50 36.6 103 16 130/84 (99) 98 Nasal Cannula 2.0 07/05/17 23:00 36.5 100 16 132/74 (93) 98 Nasal Cannula 2.0 07/05/17 20:45 36.4 95 16 120/74 (89) 98 Nasal Cannula 2.0 Notes Mental Status: alert / awake / arousable, participated in evaluation Pt Amnestic to Procedure: Yes Nausea / Vomiting: adequately controlled Pain: adequately controlled Airway Patency, RR, SpO2: stable & adequate BP & HR: stable & adequate Hydration State: stable & adequate Anesthetic Complications: no major complications apparent
[2017-07-06] MEDS: SPIRONOLACTONE/HCTZ 25-25 PO SCH (08:13)
[2017-07-06 08:20] VITALS: O2SAT 98
[2017-07-06] MEDS: ACETAMINOPHEN 325 MG TAB PO PRN (08:38)
[2017-07-06] MEDS ORDERED: MULTIVITAMIN TAB PO SCH (09:00)
[2017-07-06] MEDS ORDERED: PANTOprazole SOD 40 MG TAB PO SCH (09:00)
[2017-07-06] MEDS ORDERED: POLYETHYLENE (MIRALAX) 17 GM PACK PO SCH (09:00)
[2017-07-06 15:44] VITALS: BP 130/79; PULSE 112; TEMP 36.8; O2SAT 95
[2017-07-06 16:55] VITALS: BP 130/79; PULSE 112; TEMP 36.8; O2SAT 95
--- NOTE | 2017-07-07 12:01 | DISCHARGE SUMMARY ---
ADMITTING DIAGNOSIS: Spinal stenosis. DISCHARGE DIAGNOSIS: Spinal stenosis. PROCEDURE: Include a laminectomy 4 and 5, lumbar spine. Lizzette had her surgery on the and discharged on . She is improved, stable. Taking p.o. No chest pain, shortness of breath and/or confusion. OBJECTIVE: Vital signs stable. Moves all extremities. ASSESSMENT: Stenosis surgery, doing well, still in the short run. PLAN: She will be discharged home on the in improved stable condition. Instructions given. Precautions given. Follow up, medications, and a walker for support.
--- NOTE | 2017-07-10 14:20 | OPERATIVE REPORT ---
DATE OF OPERATION: 07/05/2017 PREOPERATIVE DIAGNOSIS: Spinal stenosis of L4-L5 lumbar spine. PROCEDURE: Include lumbar spine laminectomy, L4-L5. SURGEON: Luis Price DO TESTER OPERATOR HELPER: Fidencio Pham PA-C COMPLICATIONS: Zero. BLOOD LOSS: 150 mL. DESCRIPTION OF PROCEDURE: The patient was taken to the operating room and general intubated anesthetic provided to the patient, placed prone, scrubbed, prepped, draped sterile. We made a skin incision from 4 to the sacrum dissecting the soft tissue, putting a deep self-retaining retractor. We did a meticulous laminectomy at the involved area, foraminotomy, partial facetectomy, taking off all visible pressure. I was pleased with the freedom of the nerve roots. There was no obstruction. We irrigated thoroughly, placed some Gelfoam over the dural structures, vancomycin powder, and closed over a Hemovac drain with 1 Vicryl suture, 2-0 in subcuticular layer, and 3-0 nylon on the skin. A sterile dressing was applied. The patient returned to recovery in satisfactory and stable. Sponge and needle count correct. No complications. I attest to the content of the Intraoperative Record and any orders documented therein. Any exception s are noted below.
== END 2017-07-06 17:30 | disposition home or self-care (01) ==
LOC: C.ACU 11:18 → C.3E 16:53 → ENRESERV 17:09
PROVIDERS: ADMIT Orthopaedic Surgery Orthopaedic Surgery of the Spine; ATTEND Orthopaedic Surgery Orthopaedic Surgery of the Spine
DX: M48.061 Spinal stenosis, lumbar region without neurogenic claudication (principal); M06.9 Rheumatoid arthritis, unspecified; I10 Essential (primary) hypertension; K21.9 Gastro-esophageal reflux disease without esophagitis; E11.9 Type 2 diabetes mellitus without complications; Z85.3 Personal history of malignant neoplasm of breast

== ENCOUNTER → 2017-10-01 | Outpatient (CLI) | payer BC ==
[~2017-10-01] MED LIST changes: -ACETAMINOPHEN 500 MG TAB PO SCH; -ACETAMINOPHEN IV 100 ML IV SCH; -CEFAZOLIN 2000MG IV PUSH 15 ML IV SCH; -LACTATED RINGER'S 1000ML 1,000 ML IV SCH; -NSS 1000ML IV SCH; +PRD/1 PO; -PRED-301 PO
[2017-10-01 09:53] LABS: BASO % 0.6 %; BASO ABS # 0.04 K/uL (0-0.2); EOS % 2.3 %; EOS ABS # 0.16 K/uL (0-0.5); HEMATOCRIT 47.3 % (37-47); HEMOGLOBIN 16.3 g/dL (12.0-16.0); IG# 0.01 K/uL (0.00-0.02); LYMPH % 47.7 %; LYMPH ABS # 3.39 K/uL (1.2-3.4); MEAN CELL VOLUME 94.8 fL (80-100); MEAN CORPUSCULAR HEMOGLOBIN 32.7 pg (25-34); MEAN CORPUSCULAR HGB CONC 34.5 g/dl (32-36); MEAN PLATELET VOLUME 9.2 fL (7.4-10.4); MONO % 9.9 %; NEUT % 39.4 %; PLATELET COUNT 243 K/uL (130-400); RED CELL DISTRIBUTION WIDTH CV 13.1 % (11.5-14.5); RED CELL DISTRIBUTION WIDTH SD 45.5 fL (36.4-46.3)
[2017-10-01 10:31] LABS: CREATININE 1.03 mg/dl (0.60-1.20)
[2017-10-01 10:32] LABS: ALBUMIN 4.2 gm/dl (3.4-5.0); ALKALINE PHOSPHATASE 66 U/L (45-117); ALT/SGPT 151 U/L (12-78); AST/SGOT 71 U/L (15-37); TOTAL PROTEIN 7.3 gm/dl (6.4-8.2)
== END | disposition home or self-care (01) ==
LOC: C.LAB1850 08:08
PROVIDERS: ATTEND Internal Medicine Rheumatology
DX: M05.9 Rheumatoid arthritis with rheumatoid factor, unspecified (principal); Z79.52 Long term (current) use of systemic steroids; Z79.899 Other long term (current) drug therapy

== ENCOUNTER → 2017-10-16 | Outpatient (CLI) | payer BC ==
--- NOTE | 2017-10-16 08:42 | DIAGNOSTIC IMAGING REPORT ---
ABDOMEN LIMITED (US) HISTORY: 77 years-old Female R94.5 Abnormal liver function testUltrasound of gallbladder and COMPARISON: Right upper quadrant abdominal ultrasound 03/07/2016 TECHNIQUE: Multiple real-time sonogram images of the abdominal right upper quadrant were obtained assessing grayscale appearance and color flow FINDINGS: Pancreas is suboptimally visualized secondary to body habitus and obscuring bowel gas. Visualized portions appear unremarkable. Increased echogenicity with poor through transmission of the liver. There is no intrahepatic biliary ductal dilation or focal hepatic mass lesions. Liver measures up to 15.8 cm in length. Gallbladder is unremarkable without cholelithiasis, wall thickening or pericholecystic fluid. Common bile duct is within normal limits for patient age, 7 mm. Subcentimeter cyst of the upper pole right kidney. No right-sided hydronephrosis. IMPRESSION: 1. No cholelithiasis or sonographic evidence of acute cholecystitis. 2. No biliary ductal dilation. 3. Hepatic steatosis. The above report was generated using voice recognition software. It may contain grammatical, syntax or spelling errors. Electronically signed by: Live Magana M.D. 10/16/2017 8:41 AM Dictated Date/Time: 10/16/2017 8:38 AM
== END | disposition home or self-care (01) ==
LOC: C.ULTR 07:48
PROVIDERS: ATTEND Internal Medicine
DX: K76.0 Fatty (change of) liver, not elsewhere classified (principal); R94.5 Abnormal results of liver function studies

== ENCOUNTER 2019-02-24 07:35 | Inpatient (IN) ==
[2019-02-24] MEDS ORDERED: ALBUTEROL 0.083% NEBU SOLN 3 ML VIAL INH STA (07:41)
[2019-02-24] MEDS ORDERED: LEVOFLOXACIN/D5W 750 MG/150 ML BAG IV ONE (07:46)
--- NOTE | 2019-02-24 07:50 | Emergency Department Note ---
ED Visit Note This patient was seen in concert with Dr. Kim and we discussed and agreed upon the history, physical, assessment, and plan. See attending's note for details. . Resident Activity Tracking Resident Involvement: Resident Care Provided Care Provided: Adult ED
[2019-02-24] MEDS ORDERED: SODIUM CHLORIDE 0.9% 1000ML 1,000 ML IV ONE ×2 (08:00→09:16)
[2019-02-24 08:08] LABS: Hematocrit (blood only) 44.5 % (37-47); Hemoglobin 15.1 g/dL (12.0-16.0); Mean Corpuscular Hemoglobin 32.1 pg (25-34); Mean Corpuscular Hgb Conc 33.9 g/dL (32-36); Mean Corpuscular Volume 94.7 fL (80-100); Mean Platelet Volume 8.7 fL (7.4-10.4); Platelet Count 123 K/uL (130-400); RDW Coefficient of Variation 13.8 % (11.5-14.5); RDW Standard Deviation 47.7 fL (36.4-46.3); White Blood Count 2.99 K/uL (4.8-10.8)
[2019-02-24] MEDS ORDERED: ONDANSETRON INJ 2 MG/ML 2 ML VIAL IV STA (08:12)
[2019-02-24 08:27] LABS: Albumin Globulin Ratio 1.3 (0.9-2); Albumin Level 3.4 gm/dl (3.4-5.0); Bilirubin,Total 1.3 mg/dl (0.2-1); Calcium 8.8 mg/dl (8.5-10.1); Creatinine Clr Calc Pharmacy 31.7 ml/min; Est GFR (African American) 45.3; Est GFR (Non-African American) 39.1; Globulin 2.6 gm/dl (2.5-4.0); Magnesium 0.8 mg/dl (1.8-2.4); Potassium 3.8 mmol/L (3.5-5.1)
[2019-02-24] MEDS ORDERED: MAGNESIUM SULFATE / D5W 1 GM/100 ML BAG IV ONE ×2 (08:28→13:15)
[2019-02-24] MEDS ORDERED: cefTRIAXone SODIUM 1,000 MG/50 ML BAG IV STA (08:53)
[2019-02-24] MEDS ORDERED: SODIUM CHLORIDE 0.9% 1000ML 1,000 ML IV SCH ×2 (08:54→14:00)
[2019-02-24] MEDS ORDERED: BENZONATATE 100 MG CAPSULE PO ONE (08:54)
--- NOTE | 2019-02-24 09:04 | XRay Report ---
XR chest 1V portable CLINICAL HISTORY: dypsnea dyspnea COMPARISON STUDY: 07/03/2016 FINDINGS: Interval development of diffuse bilateral parenchymal infiltrative change. Pulmonary apices are clear. No significant cardiac enlargement. IMPRESSION: Diffuse mid and lower lung bibasilar parenchymal infiltrative change. ACT 112: Negative or not required by law. The above report was generated using voice recognition software. It may contain grammatical, syntax or spelling errors. Electronically signed by: Arslan Norwood M.D. 02/24/2019 9:02 AM
[2019-02-24 09:24] LABS: RBC Morphology Unremarkable
[2019-02-24 09:28] LABS: ALC (manual) 1.82 K/uL (1.2-3.4); ANC (manual) 0.91 K/uL (1.4-6.5); Basophils # (manual) 0.05 K/uL (0-0.2); Basophils % (manual) 1.7 %; Large Granular Lymph % (manual) 36.7 %; Lymphocytes # (manual) 0.73 K/uL (1.2-3.4); Lymphocytes % (manual) 24.3 %; Metamyelocytes # (manual) 0.13 K/uL (0-0); Metamyelocytes % (manual) 4.3 %; Monocytes # (manual) 0.03 K/uL (0.11-0.59); Monocytes % (manual) 0.9 %; Myelocytes # (manual) 0.05 K/uL (0-0); Myelocytes % (manual) 1.7 %; Neutrophils # (manual) 0.91 K/uL (1.4-6.5); Neutrophils % (manual) 30.4 %
[2019-02-24] MEDS ORDERED: MoRPHine SULFATE 2 MG/ML CARP ONE (10:16)
[2019-02-24] MEDS ORDERED: LORazepam 2 MG/4 ML VIAL ONE (10:16)
[2019-02-24] MEDS ORDERED: MoRPHine SULFATE 2 MG/ML CARP IV STA (10:16)
[2019-02-24] MEDS ORDERED: LORazepam 0.25 MG/0.5 ML VIAL IV STA (10:16)
--- NOTE | 2019-02-24 10:37 | History & Physical Report ---
Date of Service February 24, 2019 Assessment & Plan (1) Elevated lactic acid level: Patient had a lactic acid of 7.6 on admission Received 3 L of IV fluid Follow serial lactic acid per protocol Blood cultures pending Urinalysis negative Patient with multifocal pneumonia with immunosuppression Patient received ceftriaxone and levofloxacin in the emergency department We will start patient on cefepime 2 g every 12 hours on admission Check MRSA screening, if elevated will start vancomycin (2) Abnormal electrocardiogram [ECG] [EKG]: Repeat EKG on arrival to unit QTC is prolonged at 586 -avoid fluoroquinolones and benzodiazepines and other prolongation agents No ST elevation or Q waves but nonspecific ST changes which were absent in April 2017 Check a troponin Monitor on telemetry No chest pain or tightness Tachycardic (3) Acute respiratory distress: Patient presents with by lateral lower lobe pneumonia Immunosuppressed for rheumatoid arthritis -chronic steroids, Plaquenil,Tocilizumab, and history of methotrexate Elevated lactic acid and neutropenic on admission Will give systemic steroids with Solu-Medrol Await blood cultures Continue IV antibiotics No indication for BiPAP as patient is not hypercarbic Continue Oxymask Use high flow O2 if needed to maintain a higher saturations Daily chest x-ray No history consistent with pulmonary embolus Follow on telemetry (4) Neutropenia: Chronic immunosuppression secondary to rheumatoid arthritis with meds as listed above Neutropenic precautions Daily labs No history of recent malignancy but does have history of breast cancer from 2002 Has never seen a [facility] associate Follow labs with repeat CBC with differential later today (5) Acute renal failure: Secondary to vomiting and diarrhea for the last 3 days Follow serial labs Continue IV fluids secondary to elevated lactic acid NSS at 150 mL/hr Strict I's and O's - no indication for shore at this time (6) Hypotension: Most likely secondary to dehydration and pneumonia Good response to SBP of 126 after 3 liters of fluid Continue to watch closely Continue with IV hydration No concerning changes on EKG Denies hx of HTN - but is on propanolol for anxiety and Spironolactone/HCTZ 25mg BID Hold antihypertensives We will admit to the telemetry unit (7) Diabetes mellitus: On Metformin at home HgbA1c at 7.5 Hold Metformin while inpatient and start Novolog SSI (8) Long-term use of immunosuppressant medication: Seropositive for RA Follows with Dr. Lester Hold OP prednisone as we will be starting IV methylprednisolone Pain currently under control No particular joint swelling on examination (9) History of breast cancer: Completed treatment in 2003 No other hx of malignancy No oral medications or suppressive therapy (10) DVT prophylaxis: Enoxaparin at 30 mg daily secondary to decreased creatinine clearance and GFR Please refer to Dr. Cheney's addendum for further recommendations. History of Present Illness Primary Care Provider: Rajinder Denise MD Attending: Dr. Margoth Cheney There is a 78-year-old female that follows with Dr. Rajinder Denise as an outpatient. She has a past medical history including history of breast cancer in 2002, anxiety, chronic back pain, diabetes mellitus controlled on metformin, hypercholesterolemia, hypertension, seropositive rheumatoid arthritis on immunosuppressive therapy and chronic prednisone, solitary thyroid nodule, osteopenia, lumbar stenosis, and obesity with a BMI of 30.3. The patient states that she began feeling ill and "under the weather" several days ago. Over the last 2 to 3 days this worsened to the point where she had cough which was nonproductive but caused hypoxia and shortness of breath. She presented emergency department was found to have a room air SaO2 of 85%. Chest x-ray revealed multilobar pneumonia with emphasis in the bilateral lower lobes. Patient also had an acute elevation of creatinine with calculated creatinine clearance of 32 and a GFR of 39.1. Patient's magnesium was also found to be low at 0.8. Her other other electrolytes seem to be balanced. Lab review further revealed neutropenia with an ANC of 0.9 and a WBC of 2.99. Patient's platelet count was appropriate at 123. Patient states that she did have nausea and vomiting as well as some diarrhea over the last 2 or 3 days. She has family visiting for the holidays and was exposed to sick toddlers with a 3-year-old grandchild that had upper respiratory infection. Patient states that she felt warm but had no documented fever. She had no sweats or Reiger's. Patient denies any chest pain or tightness. She has no abdominal pain. She has no acute back pain. She denies any history of heart disease and has no difficulty with edema of the lower extremities. She does have a history of breast cancer in 2002 with completion of treatment at that time. She has no other history of malignancy and no history of thromboembolic disease. The patient complains of malaise which is worsened since yesterday. She has no falls or imbalance. She has no recent travel. The patient states that she has a lifelong non-smoker. She has no history of ethanol abuse. She has no history of substance abuse. She is on chronic steroids is on a current taper of 4 mg of prednisone a day and was scheduled to go to 3 mg on Sunday. She is and lives with her of 45 years. Allergies Allergy/AdvReac Type Severity Reaction Status Date / Time adalimumab Allergy Unknown BREATHING Verified 02/24/19 09:08 PROBLEMS celecoxib Allergy Unknown UNKNOWN Verified 02/24/19 09:08 tramadol AdvReac Mild NAUSEA Verified 02/24/19 09:08 Home Medications Home Medications Medication Instructions Recorded Confirmed Type B-complex with vitamin C 1 tab PO QAM 09/24/18 02/24/19 History calcium carbonate 500 mg calcium 500 mg PO QAM tab 09/24/18 02/24/19 History (1,250 mg) tablet cyanocobalamin (vitamin B-12) 1,000 mcg PO QAM tab 09/24/18 02/24/19 History 1,000 mcg tablet metformin 500 mg tablet,extended 1,000 mg PO BID #360 tab 09/24/18 02/24/19 History release 24hr multivitamin 1 tab PO QAM 09/24/18 02/24/19 History pantoprazole 40 mg tablet,delayed 40 mg PO BID #180 tab 09/24/18 02/24/19 History release spironolactone 25 1 tab PO BID #180 tab 09/24/18 02/24/19 History mg-hydrochlorothiazide 25 mg tablet propranolol 10 mg tablet 20 mg PO TID PRN #180 tab 10/04/18 02/24/19 Rx tocilizumab 200 mg/10 mL (20 500 mg IV Q28D #25 ml 10/18/18 02/24/19 Rx mg/mL) intravenous solution hydroxychloroquine 200 mg tablet 300 mg PO QDD tab 11/19/18 02/24/19 History atorvastatin 40 mg PO HS 02/24/19 02/24/19 History prednisone 4 mg PO QAM 02/24/19 02/24/19 History Past Med/Surg History Medical History Anxiety (Acute) Depression (Acute) Diabetes mellitus (Acute) History of breast cancer Hypercholesterolemia (Acute) Hypertension (Acute) Localized, primary osteoarthritis of shoulder region (Acute) Long-term use of immunosuppressant medication (Acute) Osteoarthritis (Acute) Tachycardia (Acute) Family History Other No pertinent family history in first degree relatives Social History Preferred Language: German Communication Ability: Effective Branch Lead Required: No Beliefs That Will Affect Care: None Current Living Situation: Spouse Other Information That Helps Us Care for You: No Feels Safe at Home: Yes Safety Concerns: Feels Safe At This Time Smoking Status: Never smoker Do You Dip or Chew Tobacco: No ; Second Hand Exposure: No ; Tobacco Cessation Education Requested by Patient: No Hx Alcohol Use: Yes Alcohol type: wine Hx Substance Use: No Review of Systems Review of Systems: All systems reviewed & are unremarkable except as noted in HPI & below Physical Exam Physical Exam: GENERAL : No acute distress. Patient does have cough with shortness of breath. With no production of sputum. EYES: No icterus, gaze conjugate. Pupils equal round and reactive to light NOSE: No evidence of epistaxis. Nonrebreather mask is in place MOUTH: No lesions or candidiasis. Mucosa is extremely dry. Tongue is midline. Nonrebreather mask is in place NECK: Supple. No JVD. No stridor appreciated. LUNGS: Coarse crackles at bilateral bases. No rhonchi. No expiratory wheezes. HEART: Regular, tachycardic. No appreciation of murmurs gallops or rubs. ABDOMEN: Soft, NT, ND, BS Present. No rebound tenderness EXTREMITIES: No LE edema, pedal pulses intact. All extremities are equal in strength but weak NEURO: A&OX3. Pupils equal round reactive to light. No focal deficits appreciated Results & Data Vital Signs (Past 12 Hours) Vital Signs Temp Pulse Pulse Resp BP BP Pulse Ox 02/24/19 09:26 133 H 38 H 124/56 L 96 02/24/19 09:10 141 H 32 H 97 02/24/19 09:05 142 H 36 H 91/54 L 93 02/24/19 08:11 128 H 34 H 127/70 93 02/24/19 07:57 132 H 28 H 90 02/24/19 07:50 85 L 02/24/19 07:44 37.5 C 129 H 28 H 103/62 93 Laboratory Results 02/24/19 07:55 02/24/19 07:55 Magnesium 0.8 mg/dL Lactic acid 7.6 Creatinine clearance 40 GFR 39.1 Diagnostic Findings XR chest 1V portable CLINICAL HISTORY: dypsnea dyspnea COMPARISON STUDY: 07/03/2016 FINDINGS: Interval development of diffuse bilateral parenchymal infiltrative change. Pulmonary apices are clear. No significant cardiac enlargement. IMPRESSION: Diffuse mid and lower lung bibasilar parenchymal infiltrative change. ACT 112: Negative or not required by law. Electronically signed by: Arslan Norwood M.D. 02/24/2019 9:02 AM Medications Administered Ceftriaxone Levofloxacin ECG Additional Comments: Electrocardiogram 02/24/2019 at 07:54 Vent. rate 133 BPM ME interval 88 ms QRS duration 84 ms QT/QTc 394/586 ms P-R-T axes * 26 63 Sinus tachycardia with short ME Cannot rule out Inferior infarct , age undete rmined Cannot rule out Anterior infarct , age undetermined Abnormal ECG When compared with ECG of 21-MAY-2017 13:48, Nonspecific T wave abnormality now evident in Lateral leads Code Status & VTE Plan Code Status Level 1: Full resuscitation VTE Prophylaxis Plan VTE Prophylaxis will be ordered: Yes Supervising Physician Co-Signing Physician Notes Patient seen and examined, chart reviewed, case discussed with RYANN Menon and I agree with his assessment and plan as documented above. Briefly, patient is a 78-year-old female with history of rheumatoid arthritis on chronic prednisone, Plaquenil and tocilizumab. She follows with rheumatology, Dr. Lester. Patient presenting with several days of dry cough, shortness of breath. Found to be hypoxic in the emergency room with saturation of 85% on room air. Briefly hypotensive which resolved with IV fluids. On physical exam she is afebrile, tachycardic, blood pressure 92/65, saturating 86% on oxygen mask 3 L Generalpatient ill in appearance, anxious. Answers questions appropriately and speaking in complete sentences Skinwarm, dry, intact, no rashes/lesions HEENTnormocephalic/atraumatic, pupils equal round reactive to light, extraocular muscles intact, dry mucous membranes with cracked lips, no oropharyngeal lesions, neck supple, no thyromegaly or JVD, Heart+ S1/S2, regular, tachycardic, no M/R/G Lungsequal air entry bilaterally, coarse breath sounds in bilateral bases, no rhonchi/wheezes Abdomen+ bowel sounds, soft, nontender, nondistended, no rebound/guarding/peritoneal signs Extremitieswarm, well-perfused, no clubbing/cyanosis/edema Neuroawake alert and oriented x3, no focal deficits, diffuse generalized weakness Labs and images reviewed. Significant for leukopenia with neutropenia (WBC = 2.9, ANC = 0.9), MICHELA with BUN = 24, creatinine = 1.32 (from normal baseline of 14 and 0.88, respectively on 02/06/2019), elevated lactate, elevated procalcitonin Chest x-ray with bilateral pneumonia Assessment/[id number] female on immunosuppressive agents for history of RA presenting with multifocal pneumonia, severe sepsis and hypoxic respiratory failure. Patient initially admitted to the PCU and was managed with oxygen mask, nonrebreather and high flow nasal cannula. However, she continued to have increased work of breathing and hypoxia also with worsening lactate. She was subsequently transferred to the MICU and underwent intubation with mechanical ventilation for acute hypoxic respiratory failure, severe sepsis with multiorgan involvement and concern for ARDS. -Patient will remain in medical ICU, intubated/sedated. Hemodynamic support with vasopressors as needed. Low tidal volume/high PEEP ventilator settings due to concern for ARDS Broad-spectrum empiric antibiotic coverage with cefepime and Levaquin. Cultures and viral cultures pending Thiamine/vitamin C for sepsis support -Please see critical care consultation for additional management plan PG Care Time/CCT Total # of Minutes Spent Total Time Spent with Patient: Total time spent is greater than 50% in coor dination of care (as documented) at patient's floor/unit and/or counseling patient: 70 minutes including discussion with attending physician, nursing staff, patient's
[2019-02-24 10:48] LABS: Base Excess VBG -7.8 mEq/L; HCO3 VBG 19 mmol/L; PCO2 VBG 43 mmHg (38-50); PO2 VBG 36 mmHg; pH VBG 7.26 (7.36-7.41)
[2019-02-24 10:53] LABS: Oxygen Saturation VBG < 60.0 %
[2019-02-24] MEDS ORDERED: CARBOHYDRATES FOR HYPOGLYCEMIA PO PRN (13:07)
[2019-02-24] MEDS ORDERED: GLUCAGON FOR INJ 1 MG VIAL SQ PRN (13:07)
[2019-02-24] MEDS ORDERED: GLUCOSE 10 TABS/TUBE PO PRN (13:07)
[2019-02-24] MEDS ORDERED: DEXTROSE 50% 50 ML SYRINGE IV PRN (13:07)
[2019-02-24] MEDS ORDERED: GLUCOSE 40% GEL 15 GM TUBE PO PRN (13:07)
[2019-02-24] MEDS ORDERED: PHARMACY GLYCEMIC MGMT CONSULT PRN (13:19)
[2019-02-24 13:24] LABS: Hematocrit (blood only) 38.4 % (37-47); Hemoglobin 13.1 g/dL (12.0-16.0); Mean Corpuscular Volume 93.9 fL (80-100); RDW Coefficient of Variation 13.9 % (11.5-14.5); RDW Standard Deviation 47.8 fL (36.4-46.3); Red Blood Count 4.09 M/uL (4.2-5.4); White Blood Count 1.46 K/uL (4.8-10.8)
[2019-02-24 13:28] LABS: iSTAT Allen Test Pass; iSTAT Arterial Blood Gas HCO3 16 meg/L (19-24); iSTAT Arterial Blood Gas pCO2 29 mmHg (35-46); iSTAT Arterial Blood Gas pH 7.36 (7.35-7.45); iSTAT Arterial Blood Gas pO2 61 mmHg (80-95); iSTAT Carbon Dioxide 17 mEq/l (24-31); iSTAT Site R Radial
--- NOTE | 2019-02-24 13:35 | Pharmacy Report ---
Glycemic Control Consultation - Date of Service February 24, 2019 - Scope Scope: Glycemic Pharmacist consulted for glycemic control and to write orders per [facility] inpatient glycemic control protocol - Objective Weight: 70.3 kg Accuchecks BSG (last 24hrs): 02/24/19 07:55 Glucose 152 H Laboratory Data (last 24hrs): 02/24/19 07:55 Potassium 3.8 Carbon Dioxide 27 Anion Gap 12.0 H Creatinine 1.32 H Est Cr Clr Drug Dosing 31.7 - Recent Pertinent Medications Outpatient Anti-diabetic Regimen: * Metformin 1000 mg po BID * A1c = 7.5 % on 02/06/19 Risk Factors for Insulin Resistance: * Steroids: methylprednisolone 40 mg IV q8h * Infection: on cefepime * Diet: T2DM - Assessment & Plan Assessment & Plan: ASSESSMENT: * 78 yo F with well-controlled T2DM on one oral antihyperglycemic agent as outpatient admitted with hypoxia and started on steroids and antibiotics * BSG x1 thus far 152 mg/dL * Will initiate Novolog at slightly tighter than weight-based moderate stress estimate 2nd scheduled steroids * Will hold off on Lantus for now 2nd good BSG x1 and no outpatient basal insulin needed, but add low dose tonight if BSG > 180 mg/dL PLAN FOR INPATIENT GLYCEMIC CONTROL: * Holding outpatient oral diabetes medications * Basal insulin * Lantus 10 units SQ HS (hold if BSG < 180 mg/dL) * Bolus insulin * NovoLog per scale ACHS or Q6hrs while NPO * Goal Range: Low 120 mg/dL - High 160 mg/dL * Correction Factor: 30 mg/dL/unit * Nutritional / Prandial insulin per carb ratio of 1 unit per 10 grams CHO consumed * Please note that the plan above was derived based on current level of insulin resistance and hospital stress. These recommendations are appropriate for inpatient admission only. Plan of care upon discharge will need to be reassessed to avoid potential outpatient hypo/hyperglycemia. Thank you.
[2019-02-24] MEDS: methylPREDNISolone 40 MG in SYRINGE 0 ML IV SCH ×2 (13:39→21:48)
[2019-02-24] MEDS: CEFEPIME 2,000 MG in SYRINGE 7.5 ML IV SCH (13:39)
[2019-02-24 13:43] LABS: Blood Urea Nitrogen 20 mg/dl (7-18); Calcium 7.2 mg/dl (8.5-10.1); Carbon Dioxide 18 mmol/L (21-32); Chloride 108 mmol/L (98-107); Creatinine Clr Calc Pharmacy 40.7 ml/min; Est GFR (African American) 61.2; Est GFR (Non-African American) 52.8; Glucose 140 mg/dl (70-99); Magnesium 1.1 mg/dl (1.8-2.4); Sodium 140 mmol/L (136-145)
--- NOTE | 2019-02-24 13:45 | Emergency Department Note ---
Entered by Velma Montejo acting as a scribe for History of Present Illness General Chief complaint: Flu Like Symptoms Time Seen by Provider: 02/24/19 07:41 Source: patient and EMS History of Present Illness Onset (ago): hour(s) (just prior to arrival) Location: chest Pain Consistency: + other (worsening ) Quality: + other (shortness of breath ) Associated symptoms: + cough (nonproductive ), + fever/chills, + nausea/vomiting and + other (negative runny nose; negative sore throat; positive diarrhea; negative blood in vomit; negative blood in diarrhea) Treatments prior to arrival: other (duoneb) The patient is a 78 year old female who presents to the Emergency Room with c omplaints of worsening shortness of breath that began just prior to arrival. EMS states that the patient has had a nonproductive cough over the past 3 days. The patient denies runny nose and sore throat. She reports chills during this time. The patient states that she began having nausea, vomiting, and diarrhea yesterday. The patient denies blood in her vomit and diarrhea. She reports aching abdominal pain since this time. EMS reports a duoneb treatment prior to arrival. The patient denies a history of asthma, COPD, and heart failure. She denies wearing oxygen at home. Home Medications Home Medications Medication Instructions Recorded Confirmed Type B-complex with vitamin C 1 tab PO QAM 09/24/18 02/24/19 History calcium carbonate 500 mg calcium 500 mg PO QAM tab 09/24/18 02/24/19 History (1,250 mg) tablet cyanocobalamin (vitamin B-12) 1,000 mcg PO QAM tab 09/24/18 02/24/19 History 1,000 mcg tablet metformin 500 mg tablet,extended 1,000 mg PO BID #360 tab 09/24/18 02/24/19 History release 24hr multivitamin 1 tab PO QAM 09/24/18 02/24/19 History pantoprazole 40 mg tablet,delayed 40 mg PO BID #180 tab 09/24/18 02/24/19 History release spironolactone 25 1 tab PO BID #180 tab 09/24/18 02/24/19 History mg-hydrochlorothiazide 25 mg tablet propranolol 10 mg tablet 20 mg PO TID PRN #180 tab 10/04/18 02/24/19 Rx tocilizumab 200 mg/10 mL (20 500 mg IV Q28D #25 ml 10/18/18 02/24/19 Rx mg/mL) intravenous solution hydroxychloroquine 200 mg tablet 300 mg PO QDD tab 11/19/18 02/24/19 History atorvastatin 40 mg PO HS 02/24/19 02/24/19 History prednisone 4 mg PO QAM 02/24/19 02/24/19 History Allergies Allergy/AdvReac Type Severity Reaction Status Date / Time adalimumab Allergy Unknown BREATHING Verified 02/24/19 09:08 PROBLEMS celecoxib Allergy Unknown UNKNOWN Verified 02/24/19 09:08 tramadol AdvReac Mild NAUSEA Verified 02/24/19 09:08 Past Med/Surg History Medical History Anxiety (Acute) Depression (Acute) Diabetes mellitus (Acute) History of breast cancer Hypercholesterolemia (Acute) Hypertension (Acute) Localized, primary osteoarthritis of shoulder region (Acute) Long-term use of immunosuppressant medication (Acute) Osteoarthritis (Acute) Tachycardia (Acute) Family History Other No pertinent family history in first degree relatives Social History Preferred Language: Kazakh Communication Ability: Effective [employer] Section Required: No Beliefs That Will Affect Care: None Current Living Situation: Spouse Other Information That Helps Us Care for You: No Feels Safe at Home: Yes Safety Concerns: Feels Safe At This Time Smoking Status: Never smoker Do You Dip or Chew Tobacco: No ; Second Hand Exposure: No ; Tobacco Cessation Education Requested by Patient: No Hx Alcohol Use: Yes Alcohol type: wine Hx Substance Use: No Review of Systems See HPI for pertinent positives & negatives. and A total of 10 systems reviewed and were otherwise negative Physical Exam Vital Signs Vital Signs - 24 hr 02/24/19 07:44 02/24/19 07:50 02/24/19 07:57 Temperature 37.5 C Temperature Source Oral Pulse Rate 129 H Pulse Rate [Right Finger] 132 H Respiratory Rate 28 H 28 H Respiratory Effort / Characteristics Spontaneous Respiratory Pattern Blood Pressure 103/62 Blood Pressure [Left Arm] Blood Pressure Mean 75 Blood Pressure Mean [Left Arm] Pulse Oximetry 93 85 L 90 Oxygen Delivery Method Nebulizer Room Air Nasal Cannula Oxygen Flow Rate 5 Fraction of Inspired Oxygen SaO2/FiO2 Ratio Sepsis Recent Fever Within 48 Hours Yes Sepsis New/Unexplained Change in Mental Status No Sepsis Action Taken by Nursing Previously Notified 02/24/19 08:11 02/24/19 09:05 02/24/19 09:10 Temperature Temperature Source Pulse Rate 141 H Pulse Rate [Right Finger] 128 H 142 H Respiratory Rate 34 H 36 H 32 H Respiratory Effort / Characteristics Spontaneous Respiratory Pattern Tachypnea Blood Pressure Blood Pressure [Left Arm] 127/70 91/54 L Blood Pressure Mean Blood Pressure Mean [Left Arm] 89 66 Pulse Oximetry 93 93 97 Oxygen Delivery Method Nebulizer Nebulizer Oxygen Flow Rate Fraction of Inspired Oxygen 40 SaO2/FiO2 Ratio Sepsis Recent Fever Within 48 Hours Sepsis New/Unexplained Change in Mental Status Sepsis Action Taken by Nursing 02/24/19 09:26 02/24/19 11:05 Temperature 37.6 C H Temperature Source Oral Pulse Rate Pulse Rate [Right Finger] 133 H 130 H Respiratory Rate 38 H 28 H Respiratory Effort / Characteristics Respiratory Pattern Blood Pressure Blood Pressure [Left Arm] 124/56 L 110/50 L Blood Pressure Mean Blood Pressure Mean [Left Arm] 78 70 Pulse Oximetry 96 92 Oxygen Delivery Method BiPAP Oxymask Oxygen Flow Rate 5 Fraction of Inspired Oxygen 40 SaO2/FiO2 Ratio 240 Sepsis Recent Fever Within 48 Hours Sepsis New/Unexplained Change in Mental Status Sepsis Action Taken by Nursing GENERAL: Sitting up in bed, ill-appearing, on nasal cannula, mild distress. EYE EXAM: normal conjunctiva OROPHARYNX: no exudate, no erythema, lips, buccal mucosa, and tongue normal and mucous membranes are moist NECK: supple, no nuchal rigidity, no adenopathy, non-tender. No JVD. LUNGS: Wheezing and rhonchi bilaterally. Normal chest wall mechanics HEART: Tachycardic rate and regular rhythm. No murmurs, S1 normal and S2 normal ABDOMEN: abdomen soft, non-tender, normo-active bowel sounds, no masses, no rebound or guarding. BACK: Back is symmetrical on inspection and there is no deformity, no midline tenderness, no CVA tenderness. SKIN: no rashes and no bruising UPPER EXTREMITIES: upper extremities are grossly normal. LOWER EXTREMITIES: No pitting edema. Calves equal bilaterally. NEURO EXAM: Normal sensorium, cranial nerves II-XII grossly intact, normal speech, no gross weakness of arms, no gross weakness of legs. Course Course ED COURSE: Vital signs were reviewed and showed tachycardia. The patients medical record was reviewed The above diagnostic studies were performed and reviewed. ED treatments and interventions as stated above. 0736: The patient was evaluated in room A10. A complete history and physical examination was performed. 0900: Upon reevaluation, the patient is having increased shortness of breath. She will be placed on bipap. 0919: Upon reevaluation, the patient is feeling better after bipap. I discussed my findings with the patient and she understands and agrees with the treatment plan. Based on the patients age, coexisting illnesses, exam and lab findings the decision to treat as an inpatient was made. The patient remained stable while under my care. 0921: The patient will be evaluated for further management. I discussed the case with Ed Menon-[facility] PA-Gali who accepts the patient for further evaluation under Dr. Silva-[facility] Hospitalist. Administered Medications Sodium Chloride (Nss 1000ml) 1,000 mls @ 150 mls/hr IV .Q6H40M DAVID Stop: 03/26/19 13:59 Last Admin: 02/24/19 13:31 Dose: 150 mls/hr Documented by: [id number] Discontinued Medications Albuterol (Ventolin 0.083% 2.5mg/3ml) 10 mg INH NOW STA Stop: 02/24/19 07:42 Last Admin: 02/24/19 07:57 Dose: 10 mg Documented by: [id number] Benzonatate (Tessalon Perle) 100 mg PO NOW ONE Stop: 02/24/19 08:55 Last Admin: 02/24/19 09:00 Dose: 100 mg Documented by: [id number] Levofloxacin/Dextrose (Levaquin/D5w) 750 mg in 150 mls @ 100 mls/hr IV Q24H ONE Stop: 02/24/19 09:15 Last Infusion: 02/24/19 09:35 Dose: 0 mls/hr Documented by: [id number] Admin: 02/24/19 08:10 Dose: 100 mls/hr Documented by: [id number] Sodium Chloride (Nss 1000ml) 1,000 mls @ 999 mls/hr IV .Q1H1M ONE Stop: 02/24/19 09:00 Last Infusion: 02/24/19 08:54 Dose: 0 mls/hr Documented by: [id number] Admin: 02/24/19 08:10 Dose: 999 mls/hr Documented by: [id number] Magnesium Sulfate/Dextrose (Magnesium Sulfate / D5w) 1 gm in 100 mls @ 100 mls/hr IV ONE ONE Stop: 02/24/19 09:27 Last Infusion: 02/24/19 09:35 Dose: 0 mls/hr Documented by: [id number] Admin: 02/24/19 08:34 Dose: 100 mls/hr Documented by: [id number] Sodium Chloride (Nss 1000ml) 1,000 mls @ 999 mls/hr IV .Q1H1M DAVID Stop: 02/24/19 09:54 Last Infusion: 02/24/19 10:19 Dose: 0 mls/hr Documented by: [id number] Admin: 02/24/19 08:57 Dose: 999 mls/hr Documented by: [id number] Ceftriaxone Sodium (Rocephin) 1,000 mg in 50 mls @ 100 mls/hr IV NOW STA Stop: 02/24/19 09:22 Last Infusion: 02/24/19 09:24 Dose: 0 mls/hr Documented by: [id number] Admin: 02/24/19 09:00 Dose: 100 mls/hr Documented by: [id number] Sodium Chloride (Nss 1000ml) 1,000 mls @ 999 mls/hr IV .Q1H1M ONE Stop: 02/24/19 10:16 Last Infusion: 02/24/19 10:19 Dose: 0 mls/hr Documented by: [id number] Admin: 02/24/19 09:25 Dose: 999 mls/hr Documented by: [id number] Lorazepam (Ativan) 0.25 mg in 0.5 mls @ 0.5 mls/min IV NOW STA Stop: 02/24/19 10:17 Last Admin: 02/24/19 10:32 Dose: Not Given Documented by: [id number] Lorazepam (Ativan) Confirm Administered Dose 2 mg .ROUTE .STK-MED ONE Stop: 02/24/19 10:17 Last Increment: 02/24/19 10:19 Dose: 0.25 mg Documented by: [id number] Morphine Sulfate (Morphine Sulfate) Confirm Administered Dose 2 mg .ROUTE .STK- MED ONE Stop: 02/24/19 10:17 Last Admin: 02/24/19 10:20 Dose: 2 mg Documented by: [id number] Morphine Sulfate (Morphine Sulfate) 2 mg IV NOW STA Stop: 02/24/19 10:17 Last Admin: 02/24/19 10:32 Dose: Not Given Documented by: [id number] Ondansetron HCl (Zofran) 4 mg IV NOW STA Stop: 02/24/19 08:13 Last Admin: 02/24/19 08:16 Dose: 4 mg Documented by: [id number] Critical Care Time Critical Care Time: Yes Total Critical Care Time: 34 I have personally spent 34 minutes of critical care time in the direct management of this patient. This includes bedside care, interpretation of diagnostic studies, and testing, discussion with consultants, patient, and family members, and other required patient management activities. This 34 minutes is in excess of all separately billable procedures. Medical Decision Making Differential Diagnosis Differential diagnoses includes but is not limited to pneumonia, bronchitis, COPD/Asthma exacerbation, pneumothorax, pulmonary embolism, congestive heart failure, acute coronary syndrome Medical Records Attestation: I reviewed the patient's medical records. Home Medications Current Medication List: was personally reviewed by me Laboratory Data Attestation: I reviewed the patient's lab results. Result diagrams: 02/24/19 13:14 02/24/19 07:55 Lab Results 02/24/19 02/24/19 02/24/19 Range/Units 07:55 07:55 07:55 WBC 2.99 L (4.8-10.8) K/uL RBC 4.70 (4.2-5.4) M/uL Hgb 15.1 (12.0-16.0) g/dL Hct 44.5 (37-47) % MCV 94.7 (80-100) fL MCH 32.1 (25-34) pg MCHC 33.9 (32-36) g/dL RDW Std Deviation 47.7 H (36.4-46.3) fL RDW Coeff of Delma 13.8 (11.5-14.5) % Plt Count 123 L (130-400) K/uL MPV 8.7 (7.4-10.4) fL Neutrophils % (Manual) 30.4 % Lymphocytes % (Manual) 24.3 % Monocytes % (Manual) 0.9 % Basophils % (Manual) 1.7 % Metamyelocytes % (Man) 4.3 % Myelocytes % (Man) 1.7 % Neutrophils # (Manual) 0.91 L (1.4-6.5) K/uL Total Absolute Neuts 0.91 L* (1.4-6.5) K/uL Lymphocytes # (Manual) 0.73 L (1.2-3.4) K/uL Total Abs Lymphocytes 1.82 (1.2-3.4) K/uL Monocytes # (Manual) 0.03 L (0.11-0.59) K/uL Basophils # (Manual) 0.05 (0-0.2) K/uL Metamyelocytes # (Man) 0.13 H (0-0) K/uL Myelocytes # (Manual) 0.05 H (0-0) K/uL Large Granular Lymphs 36.7 % # Lrg Granular Lymphs 1.10 K/uL RBC Morphology Unremarkable VBG pH (7.36-7.41) VBG pCO2 (38-50) mmHg VBG pO2 mmHg VBG HCO3 mmol/L VBG O2 Saturation % VBG Base Excess mEq/L Barometric Pressure mm/Hg Sodium 139 (136-145) mmol/L Potassium 3.8 (3.5-5.1) mmol/L Chloride 100 (98-107) mmol/L Carbon Dioxide 27 (21-32) mmol/L Anion Gap 12.0 H (3-11) BUN 24 H (7-18) mg/dl Creatinine 1.32 H (0.6-1.2) mg/dl Est Cr Clr Drug Dosing 31.7 ml/min Est GFR ( Amer) 45.3 Est GFR (Non-Af Amer) 39.1 BUN/Creatinine Ratio 18.0 (10-20) Glucose 152 H (70-99) mg/dl Lactate 7.6 H* (0.4-2.0) mmol/L Calcium 8.8 (8.5-10.1) mg/dl Magnesium 0.8 L* (1.8-2.4) mg/dl Total Bilirubin 1.3 H (0.2-1) mg/dl AST 26 (15-37) U/L ALT 37 (12-78) U/L Alkaline Phosphatase 45 (45-117) U/L Total Protein 6.0 L (6.4-8.2) gm/dl Albumin 3.4 (3.4-5.0) gm/dl Globulin 2.6 (2.5-4.0) gm/dl Albumin/Globulin Ratio 1.3 (0.9-2) Influenza Type A Ag (Neg) Influenza Type B Ag (Neg) 02/24/19 02/24/19 02/24/19 Range/Units 08:00 10:17 10:17 WBC (4.8-10.8) K/uL RBC (4.2-5.4) M/uL Hgb (12.0-16.0) g/dL Hct (37-47) % MCV (80-100) fL MCH (25-34) pg MCHC (32-36) g/dL RDW Std Deviation (36.4-46.3) fL RDW Coeff of Delma (11.5-14.5) % Plt Count (130-400) K/uL MPV (7.4-10.4) fL Neutrophils % (Manual) % Lymphocytes % (Manual) % Monocytes % (Manual) % Basophils % (Manual) % Metamyelocytes % (Man) % Myelocytes % (Man) % Neutrophils # (Manual) (1.4-6.5) K/uL Total Absolute Neuts (1.4-6.5) K/uL Lymphocytes # (Manual) (1.2-3.4) K/uL Total Abs Lymphocytes (1.2-3.4) K/uL Monocytes # (Manual) (0.11-0.59) K/uL Basophils # (Manual) (0-0.2) K/uL Metamyelocytes # (Man) (0-0) K/uL Myelocytes # (Manual) (0-0) K/uL Large Granular Lymphs % # Lrg Granular Lymphs K/uL RBC Morphology VBG pH 7.26 L (7.36-7.41) VBG pCO2 43 (38-50) mmHg VBG pO2 36 mmHg VBG HCO3 19 mmol/L VBG O2 Saturation < 60.0 % VBG Base Excess -7.8 mEq/L Barometric Pressure 723.4 mm/Hg Sodium (136-145) mmol/L Potassium (3.5-5.1) mmol/L Chloride (98-107) mmol/L Carbon Dioxide (21-32) mmol/L Anion Gap (3-11) BUN (7-18) mg/dl Creatinine (0.6-1.2) mg/dl Est Cr Clr Drug Dosing ml/min Est GFR ( Amer) Est GFR (Non-Af Amer) BUN/Creatinine Ratio (10-20) Glucose (70-99) mg/dl Lactate 9.3 H* (0.4-2.0) mmol/L Calcium (8.5-10.1) mg/dl Magnesium (1.8-2.4) mg/dl Total Bilirubin (0.2-1) mg/dl AST (15-37) U/L ALT (12-78) U/L Alkaline Phosphatase (45-117) U/L Total Protein (6.4-8.2) gm/dl Albumin (3.4-5.0) gm/dl Globulin (2.5-4.0) gm/dl Albumin/Globulin Ratio (0.9-2) Influenza Type A Ag Neg for Influ A (Neg) Influenza Type B Ag Neg for Influ B (Neg) Imaging Data Radiologist's Impression: Radiology results as stated below per my review and the radiologist's interpretation: XR chest 1V portable CLINICAL HISTORY: dypsnea dyspnea COMPARISON STUDY: 07/03/2016 FINDINGS: Interval development of diffuse bilateral parenchymal infiltrative change. Pulmonary apices are clear. No significant cardiac enlargement. IMPRESSION: Diffuse mid and lower lung bibasilar parenchymal infiltrative change. ACT 112: Negative or not required by law. The above report was generated using voice recognition software. It may contain grammatical, syntax or spelling errors. Electronically signed by: Arslan Norwood M.D. 02/24/2019 9:02 AM ECG Data Attestation: I personally reviewed and interpreted this ECG as follows: Indication: + SOB/dyspnea Rate (beats per minute): 133 Rhythm: + sinus tachycardia ECG Intervals/blocks: + Prolonged QT ECG [place]: + Normal ECG Findings: + Other (T wave flattening in the lateral and inferior leads); no PVCs Blood Pressure Blood Pressure Findings: Normal blood pressure MDM Narrative Patient is a 78-year-old female presents the ER for nausea which started last night. Upon arrival she denies any chest pain or shortness of breath but does admit to a cough. She is a history of CAD, COPD on 3 L nasal cannula along with hypertension hyperlipidemia. IV was established blood work was obtained and showed a leukopenia of about 2000. No significant anemia. Patient was neutropenic at 900. LFTs were unremarkable. Bilirubin slightly elevated 1.3. Creatinine slightly elevated at 1.32. Influenza was negative. CT abdomen pelvis shows no acute pathology with exception of a left lower lobe infiltrate. Chest x-ray confirmed left-sided pneumonia. Patient was given IV fluids and IV antibiotics. She was updated bedside. Lactic acid was fairly elevated 7. Although she had no chest pain or shortness of breath I did recommend admission due to the severity of the pneumonia along with a leukopenia and lactic acidosis. Do favor that this likely combination of the infectious etiology and she does take metformin. Patient was seen with the resident but independently. He did assist with placing orders. Impression & Plan Pneumonia, Hypoxia, Elevated lactic acid level, Leukopenia Discharge Plan Visit Data *Final* Discharge Date/Time: 02/24/19 12:19 Chief Complaint: Flu Like Symptoms ED Provider: Tenzin Kim ED Midlevel Provider: Wilfred Tena Discharge Problem: Pneumonia, Hypoxia, Elevated lactic acid level, Leukopenia Patient Disposition: Admitted As Inpatient Discharge Instructions Interventions: ED Discharge Assessment Last Done: 02/24/19 12:19 Discharge Problem: Pneumonia Qualifiers: Pneumonia type: due to unspecified organism Laterality: right Lung location: lower lobe of lung Qualified Code(s): J18.9 - Pneumonia, unspecified organism Leukopenia Qualifiers: Leukopenia type: unspecified Qualified Code(s): D72.819 - Decreased white blood cell count, unspecified The salibe's documentation has been prepared under my direction and personally reviewed by me in its entirety. I confirm that the note above accurately reflects all work, treatment, procedures, and medical decision making performed by me.
[2019-02-24 13:53] LABS: Phosphorus 2.9 mg/dl (2.5-4.9); Troponin I < 0.015 ng/ml (0-0.045)
[2019-02-24] MEDS ORDERED: POTASSIUM CHLORIDE 20 MEQ TABCR PO STA (14:48)
[2019-02-24 15:00] LABS: Mean Corpuscular Hgb Conc 34.1 g/dL (32-36); Mean Platelet Volume 8.3 fL (7.4-10.4); Platelet Count 97 K/uL (130-400)
[2019-02-24 15:04] LABS: RBC Morphology Unremarkable
[2019-02-24 15:11] LABS: ALC (manual) 0.46 K/uL (1.2-3.4); Eosinophils # (manual) 0.01 K/uL (0-0.5); Lymphocytes # (manual) 0.46 K/uL (1.2-3.4); Lymphocytes % (manual) 31.3 %; Metamyelocytes # (manual) 0.32 K/uL (0-0); Metamyelocytes % (manual) 21.9 %; Monocytes # (manual) 0.01 K/uL (0.11-0.59); Myelocytes # (manual) 0.15 K/uL (0-0); Myelocytes % (manual) 10.4 %; Neutrophils % (manual) 34.4 %
[2019-02-24] MEDS ORDERED: RAPID SEQUENCE INDUCTION BAG ONE (15:31)
[2019-02-24] MEDS ORDERED: MIDAZOLAM HCL 1 MG/ML 2ML VIAL IV PRN (15:38)
[2019-02-24] MEDS ORDERED: VECURONIUM BROMIDE 10 MG VIAL IV ONE (16:15)
[2019-02-24] MEDS ORDERED: fentaNYL citrate 100 MCG/2 ML CARP IV ONE (16:15)
[2019-02-24] MEDS ORDERED: ETOMIDATE 2 MG/ML 20 ML VIAL IV ONE (16:15)
[2019-02-24] MEDS ORDERED: MIDAZOLAM HCL 5 MG/ML VIAL IV ONE (16:15)
[2019-02-24] MEDS ORDERED: SUCCINYLCHOLINE CHLORIDE 20 MG/ML 10 ML VIAL IV ONE (16:15)
--- NOTE | 2019-02-24 16:27 | Procedure Note ---
Procedure Note: Bronchoscopy Procedure Procedure date: February 24, 2019 Procedure: fiberoptic bronchoscopy Pre-procedure indication: Pulmonary infiltrate, acute hypoxic respiratory failure, acute respiratory distress syndrome Post-procedure Diagnosis: same as above Prior to Procedure: Informed Consent: The risks, benefits, indications, potential complications, and alternatives were explained to the patient and patient and informed consent obtained. Attending Staff: Betty Guthrie DO Resident/APC: Ramya Skin Prep: Not applicable Anesthesia: Versed and fentanyl The identity of the patient was confirmed and a bedside time out was performed. Description of Procedure: Fiberoptic bronchoscopy was performed via endotracheal tube. Bronchioalveolar lavage right lower lobe was performed serially, no evidence of diffuse alveolar hemorrhage. Single lavage of left lower lobe. Findings included: Hyperemic airways bilaterally no tiffany purulence noted. Complications: None Specimens: Bronchial washings sent for culture and Gram stain, cytology, fungal elements, and AFB stain and culture, CMV and HSV PCR Estimated blood loss: Zero
[2019-02-24] MEDS ORDERED: HYDROXYCHLOROQUINE SULFATE 200 MG TAB PO SCH (16:30)
[2019-02-24] MEDS ORDERED: ICU PROTOCOL FOR HYPERGLYCEMIA PRN (16:32)
[2019-02-24] MEDS ORDERED: POTASSIUM CHLORIDE 20 MEQ/15 ML UDC PO STA (16:38)
[2019-02-24] MEDS ORDERED: METOPROLOL TARTRATE 1 MG/ML VIAL IV STA (16:44)
[2019-02-24] MEDS: MIDAZOLAM HCL 125 MG/250 ML BAG IV SCH (17:14)
--- NOTE | 2019-02-24 17:15 | Procedure Note ---
Procedure Note Date of Service February 24, 2019 Procedure date: Noted above Procedure: Radial artery cannulation Pre-procedure Diagnosis: Need for invasive monitoring, frequent blood draws Post-procedure Diagnosis: same as above Prior to Procedure: Informed Consent: The risks, benefits, indications, potential complications, and alternatives were explained to the patient and patient's and informed consent obtained. Attending Staff: Betty Guthrie DO Skin Prep: Chlorhexidine Anesthesia: 3 mL 1% lidocaine without epinephrine The identity of the patient was confirmed and a bedside time out was performed. Description of Procedure: After sterile prep and sterile drape utilizing standard sterile technique the superficial skin of the right radial artery was anesthetized. The target artery was identified via dynamic ultrasound guidance and entered with a 20-gauge arrow Angiocath. Pulsatile bright red blood return was noted. Via modified Seldinger technique the self-contained guidewire was advanced and the Angiocath advanced over the guidewire. The guidewire was removed and brisk arterial blood return was noted. The pressure monitor was connected, and the arterial line was secured via commercial securement device. A sterile dressing was then applied. Complications: None Estimated blood loss: Trace Patient tolerated the procedure well. Procedure Date: February 24, 2019 Procedure: Procedural Ultrasound Indication: Arterial access for invasive monitoring Attending: Betty Guthrie DO Artery visualized: Yes Pulsatility of artery: Yes Artery patent: Yes Line confirmed in artery with ultrasound: Yes Impression: Successful arterial cannulation Images obtained are saved for permanent record Coding CPT Codes Tubes, Drains, and Vasc Access - Tubes, Drains, and Vasc Access: [id number] Place Catheter In Artery ([id number]) Tubes, Drains, and Vasc Access - Tubes, Drains, and Vasc Access: [id number] Ultrasound Guidance For Vascular ([id number])
--- NOTE | 2019-02-24 17:18 | Procedure Note ---
Procedure Note Date of Service February 24, 2019 Procedure Date: Noted above Procedure: Endotracheal intubation Pre-procedure Diagnosis: Acute hypoxic respiratory failure secondary to multilobar pneumonia Post-procedure Diagnosis: same as above Prior to Procedure: Informed Consent: emergent Attending Staff: Betty Guthrie DO The identity of the patient was confirmed and a bedside time out was performed. Description of Procedure: Patient was evaluated and required intubation for impending respiratory failure. The patient was prepared in the usual fashion. A glide scope with #3 blade was used. A 8 mm inner diameter endotrachial tube was placed endotracheally to 22 cm at the teeth. A grade 1 view was obtained. The tube initially entered the glottic opening and then met resistance. As the patient was mildly desaturating into the low 90s she was bagged through the endotracheal tube while staff got a bougie. The bougie was passed through the inner lumen of the endotracheal tube and then the endotracheal tube was slowly rotated and advanced with firm steady pressure and was noted to pass through the vocal cords. Chest rise was bilateral. Bilateral breath sounds were heard without air sounds in the abdomen. Mist was noted in the endotracheal tube. End-tidal CO2 measurement was positive. After bronchoscopy the tube was retracted 2 cm and secured at 20 cm to the teeth. Chest x-ray shows proper endotracheal tube placement. Complications: Desaturation into 88 momentarily and then prompt recovery with [id number] ventilation. Findings: Not applicable Specimens: Not applicable Estimated blood loss: Zero Coding CPT Codes Resuscitation - Resuscitation: [id number] Endotracheal Intubation, emergency ([id number])
[2019-02-24] MEDS: MAGNESIUM SULFATE / D5W 1 GM/100 ML BAG IV SCH ×2 (17:19→18:22)
[2019-02-24 17:20] LABS: Fibrinogen 330 mg/dl (184-400); INR 1.2 (0.9-1.1); Partial Thromboplastin Ratio 0.9; Partial Thromboplastin Time 24.6 Seconds (21.0-31.0); Prothrombin Time 12.1 Seconds (9.0-12.0)
[2019-02-24 17:23] LABS: BUN Creatinine Ratio 18.6 (10-20); Blood Urea Nitrogen 18 mg/dl (7-18); Calcium 7.3 mg/dl (8.5-10.1); Carbon Dioxide 21 mmol/L (21-32); Chloride 108 mmol/L (98-107); Creatinine Clr Calc Pharmacy 43.6 ml/min; Est GFR (African American) 66.6; Est GFR (Non-African American) 57.4; Glucose 201 mg/dl (70-99); Magnesium 1.6 mg/dl (1.8-2.4); Potassium 3.3 mmol/L (3.5-5.1); Sodium 137 mmol/L (136-145)
[2019-02-24 17:28] LABS: Phosphorus 2.6 mg/dl (2.5-4.9); Troponin I < 0.015 ng/ml (0-0.045)
--- NOTE | 2019-02-24 17:37 | Critical Care Consultation ---
Date of Consultation February 24, 2019 Assessment & Plan (1) Acute respiratory failure with hypoxemia: Reason Critically Ill: 78-year-old female with acute hypoxic respiratory failure requiring intubation mechanical ventilation and acute respiratory distress syndrome in the setting of severe sepsis. PLAN: Neuro: Sedation and analgesia -Can proceed with Versed infusion, avoiding propofol secondary to sepsis Resp: Acute hypoxic respiratory failure -Intubation mechanical ventilation -High PEEP low FiO2 ardsnet guidelines Acute respiratory distress syndrome -No evidence of diffuse alveolar hemorrhage Multilobar pneumonia -Cefepime 2 g every 12 -Levaquin 750 mg received in ED -Possible prolonged QTC in the setting of sinus tachycardia -Daily EKG, patient unable to tolerate Levaquin would consider doxycycline for atypical coverage -MRSA nasal swab negative -Influenza negative: Empiric Tamiflu given lack of purulence in lungs CV: Tachycardia -In prior records report of tachycardia prior to surgical procedures -Routine echo -Trend troponins given concern for demand ischemia -Check TSH Fluids/Renal: Acute kidney injury: Improved -Convert from normal saline to vitamin C and thiamine -UA pending Lactic acidosis -Continue to trend Hypokalemia hypomagnesemia -Replete PRN ID: Severe sepsis with multisystem organ dysfunction -Empiric pulmonary coverage -Viral studies pending. GI/Nutrition: N.p.o. -Pepcid ordered: Anticipate greater than 48 hours of mechanical ventilation and high-dose steroids Heme: Pancytopenia -Suspect medication effect DVT prophylaxis: Heparin 5000 twice daily Endocrine: ICU hyperglycemia protocol Checking TSH Solu-Medrol -40 mg IV every 8 Vascular access: Left arterial line, peripheral IVs -Patient consented for central line, intubation, bronchoscopy, arterial line Code Status: Full Present on Admission?: Yes (2) Severe sepsis with acute organ dysfunction: Present on Admission?: Yes (3) ARDS (adult respiratory distress syndrome): Present on Admission?: Yes (4) Elevated lactic acid level: Present on Admission?: Yes (5) Abnormal electrocardiogram [ECG] [EKG]: Present on Admission?: Yes (6) Acute respiratory distress: Present on Admission?: Yes (7) Neutropenia: Present on Admission?: Yes (8) Acute renal failure: Present on Admission?: Yes (9) Diabetes mellitus: Present on Admission?: Yes (10) Long-term use of immunosuppressant medication: Present on Admission?: Yes (11) History of breast cancer: Patient reports lumpectomy without lymph node resection Present on Admission?: Yes (12) DVT prophylaxis: History of Present Illness Attending Physician: Margoth Cheney DO Allergies Allergy/AdvReac Type Severity Reaction Status Date / Time adalimumab Allergy Unknown BREATHING Verified 02/24/19 09:08 PROBLEMS celecoxib Allergy Unknown UNKNOWN Verified 02/24/19 09:08 tramadol AdvReac Mild NAUSEA Verified 02/24/19 09:08 Home Medications Home Medications Medication Instructions Recorded Confirmed Type B-complex with vitamin C 1 tab PO QAM 09/24/18 02/24/19 History calcium carbonate 500 mg calcium 500 mg PO QAM tab 09/24/18 02/24/19 History (1,250 mg) tablet cyanocobalamin (vitamin B-12) 1,000 mcg PO QAM tab 09/24/18 02/24/19 History 1,000 mcg tablet metformin 500 mg tablet,extended 1,000 mg PO BID #360 tab 09/24/18 02/24/19 History release 24hr multivitamin 1 tab PO QAM 09/24/18 02/24/19 History pantoprazole 40 mg tablet,delayed 40 mg PO BID #180 tab 09/24/18 02/24/19 History release spironolactone 25 1 tab PO BID #180 tab 09/24/18 02/24/19 History mg-hydrochlorothiazide 25 mg tablet propranolol 10 mg tablet 20 mg PO TID PRN #180 tab 10/04/18 02/24/19 Rx tocilizumab 200 mg/10 mL (20 500 mg IV Q28D #25 ml 10/18/18 02/24/19 Rx mg/mL) intravenous solution hydroxychloroquine 200 mg tablet 300 mg PO QDD tab 11/19/18 02/24/19 History atorvastatin 40 mg PO HS 02/24/19 02/24/19 History prednisone 4 mg PO QAM 02/24/19 02/24/19 History Patient History Medical History Anxiety (Acute) Depression (Acute) Diabetes mellitus (Acute) History of breast cancer Hypercholesterolemia (Acute) Hypertension (Acute) Localized, primary osteoarthritis of shoulder region (Acute) Long-term use of immunosuppressant medication (Acute) Osteoarthritis (Acute) Tachycardia (Acute) Family History Other No pertinent family history in first degree relatives Social History Preferred Language: Georgian Communication Ability: Effective Associate Director Qa Required: No Beliefs That Will Affect Care: None Current Living Situation: Spouse Other Information That Helps Us Care for You: No Feels Safe at Home: Yes Safety Concerns: Feels Safe At This Time Smoking Status: Never smoker Do You Dip or Chew Tobacco: No ; Second Hand Exposure: No ; Tobacco Cessation Education Requested by Patient: No Hx Alcohol Use: Yes Alcohol type: wine Hx Substance Use: No Results & Data Vital Signs (Past 12 Hours) Vital Signs Temp Pulse Pulse Resp BP BP Pulse Ox 02/24/19 17:04 149 H 182/102 H 02/24/19 16:15 20 98 02/24/19 13:07 37.2 C 121 H 31 H 128/81 88 L 02/24/19 12:56 128 H 02/24/19 12:19 123 H 24 136/67 92 02/24/19 11:05 37.6 C H 130 H 28 H 110/50 L 92 02/24/19 09:26 133 H 38 H 124/56 L 96 02/24/19 09:10 141 H 32 H 97 02/24/19 09:05 142 H 36 H 91/54 L 93 02/24/19 08:11 128 H 34 H 127/70 93 02/24/19 07:57 132 H 28 H 90 02/24/19 07:50 85 L 02/24/19 07:44 37.5 C 129 H 28 H 103/62 93 Pulse Ox 02/24/19 17:04 02/24/19 16:15 02/24/19 13:07 94 02/24/19 12:56 02/24/19 12:19 02/24/19 11:05 02/24/19 09:26 02/24/19 09:10 02/24/19 09:05 02/24/19 08:11 02/24/19 07:57 02/24/19 07:50 02/24/19 07:44 Coding Level of Care Code Critical Care 1st 30-74 mins Diagnoses Acute respiratory failure with hypoxemia J96.01 Severe sepsis with acute organ dysfunction A41.9; R65.20 ARDS (adult respiratory distress syndrome) J80 Elevated lactic acid level R79.89 Abnormal electrocardiogram [ECG] [EKG] R94.31 Acute respiratory distress R06.03 Neutropenia D70.2 Neutropenia type: other drug-induced Acute renal failure N17.9 Acute renal failure type: unspecified Diabetes mellitus E11.9 Long-term use of immunosuppressant medication Z79.899 History of breast cancer Z85.3 DVT prophylaxis Z29.9 Time Spent (min) 70 Comment I have personally spent 70 minutes of critical care time in the direct management of this patient. This is a life/limb threatening event. This includes time spent evaluating patient, direct bedside care, chart review, placing orders, interpretation of diagnostic studies, discussion with cons ultants, patient, and/or family members regarding treatment decisions, as well as other required patient management activities. This time is exclusive of all separately billable procedures, and teaching time and separate from and in addition to any other critical care service time. (1) Neutropenia Neutropenia type: other drug-induced Qualified Code(s): D70.2 - Other drug- induced agranulocytosis (2) Acute renal failure Acute renal failure type: unspecified Qualified Code(s): N17.9 - Acute kidney failure, unspecified
--- NOTE | 2019-02-24 17:43 | XRay Report ---
XR chest 1V portable HISTORY: 78 years-old Female hypoxia acute hypoxia COMPARISON: Chest radiograph 02/24/2019 TECHNIQUE: Portable AP view of the chest FINDINGS: Cardiac mediastinal and hilar silhouettes are unchanged. Persistent bilateral mixed interstitial and alveolar opacities with dense consolidation of the lung bases with progressive consolidation of the l eft midlung. Endotracheal tube overlies the midline, 3.3 cm superior to the naomi. Enteric tube cour ses below the diaphragm, distal tip outside the [id number]. No pneumothorax. Blunting of the costo phrenic angles with suggested small pleural effusions. Degenerative changes of the shoulders and spin e. IMPRESSION: 1. Endotracheal tube overlies the midline, 3.3 cm superior to the naomi. 2. Enteric tube distal tip projects inferiorly outside the [id number] within the expected location of the gastric lumen. 3. Multifocal bilateral opacities are redemonstrated, slightly worsened within the left midlung. ACT 112: Negative or not required by law. The above report was generated using voice recognition software. It may contain grammatical, syntax o r spelling errors. Electronically signed by: Live Magana M.D. 02/24/2019 5:41 PM
[2019-02-24 17:55] LABS: iSTAT Arterial Blood Gas HCO3 19 meg/L (19-24); iSTAT Arterial Blood Gas pCO2 46 mmHg (35-46); iSTAT Arterial Blood Gas pH 7.23 (7.35-7.45); iSTAT Arterial Blood Gas pO2 156 mmHg (80-95); iSTAT Carbon Dioxide 21 mEq/l (24-31); iSTAT Site Art Line
[2019-02-24 18:11] LABS: Thyroid Stimulating Hormone 0.979 uIu/ml (0.300-4.500)
[2019-02-24] MEDS: ASCORBIC ACID 1,500 MG, THIAMINE HCL 100 MG in 0.9 % SODIUM CHLORIDE 100 ML IV SCH ×2 (18:11→23:26)
[2019-02-24 18:15] LABS: Eosinophil Body Fluid Man 0 %; Fluid Mono/Macrophage 29 %; Lymphocyte Body Fluid Man 0 %; Neutrophil Body Fluid Man 71 %
[2019-02-24] MEDS ORDERED: PHARMACY GLYCEMIC MGMT CONSULT STA (18:21)
[2019-02-24] MEDS ORDERED: ICU PROTOCOL FOR HYPERGLYCEMIA SCH (18:30)
--- NOTE | 2019-02-24 19:11 | Ultrasound Report ---
BILATERAL LOWER EXTREMITY VENOUS DOPPLER CLINICAL HISTORY: Lower extremity swelling and pain. COMPARISON STUDY: No previous studies for comparison. TECHNIQUE: Sonography of the deep venous system of the bilateral lower extremities was performed. Co mpression and augmentation were evaluated. FINDINGS: The bilateral common femoral, superficial femoral and popliteal veins were compressible. A ugmentation was normal. Flow was shown within the deep calf vessels. IMPRESSION: No evidence of deep venous thrombus within the bilateral lower extremities. ACT 112: Negative or not required by law. Electronically signed by: Ras Henderson M.D. 02/24/2019 7:10 PM
[2019-02-24] MEDS: INSULIN ASPART 100 UNITS/ML 3 ML PEN SC SCH ×2 (19:30→20:44)
[2019-02-24] MEDS: OSELTAMIVIR PHOSPHATE SUSP 30 MG/5 ML UDP PO SCH (20:36)
[2019-02-24] MEDS: FAMOTIDINE 20 MG in SYRINGE 3 ML IV SCH (20:36)
[2019-02-24] MEDS: HEPARIN SOD 5,000 UNIT/0.5 ML VIAL SQ SCH (20:36)
[2019-02-24] MEDS ORDERED: INSULIN GLARGINE SOLOSTAR 100 UNITS/ML 3 ML PEN SC ONE ×2 (21:00)
[2019-02-24] MEDS ORDERED: PANTOprazole 40 MG TAB PO SCH (21:00)
[2019-02-24] MEDS ORDERED: ATORVASTATIN 40 MG TAB PO SCH (21:00)
[2019-02-24 21:35] LABS: Appearance Urine Cloudy (Clear); Bacteria Urine Automated Negative (Negative); Bilirubin Urine Negative (Negative); Blood Urine Negative (Negative); Color Urine Yellow; Epithelial Cell Urine Auto >30 /lpf (0-5); Glucose Urine UA Trace (Negative); Ketones Urine Trace (Negative); Leukocyte Esterase Urine Negative (Negative); Nitrite Urine Negative (Negative); Protein Urine 1+ (Negative); Specific Gravity Urine 1.024 (1.000-1.030); Urobilinogen Urine Negative (Negative)
[2019-02-25] MEDS ORDERED: INSULIN ASPART 100 UNITS/ML 3 ML PEN SC ONE (02:00)
[2019-02-25] MEDS: CEFEPIME 2,000 MG in SYRINGE 7.5 ML IV SCH ×2 (02:04→13:47)
[2019-02-25] MEDS: fentaNYL citrate 100 MCG/2 ML VIAL IV PRN ×3 (03:00→19:36)
[2019-02-25 04:25] LABS: Hematocrit (blood only) 37.6 % (37-47); Hemoglobin 12.9 g/dL (12.0-16.0); Mean Corpuscular Hemoglobin 32.6 pg (25-34); Mean Corpuscular Hgb Conc 34.3 g/dL (32-36); Mean Corpuscular Volume 94.9 fL (80-100); Mean Platelet Volume 8.5 fL (7.4-10.4); Platelet Count 106 K/uL (130-400); RDW Coefficient of Variation 13.9 % (11.5-14.5); RDW Standard Deviation 48.2 fL (36.4-46.3); Red Blood Count 3.96 M/uL (4.2-5.4); Reticulocyte % 1.2 % (0.5-2.0); Reticulocytes # 0.05 10^6/uL (0.02-0.10); White Blood Count 8.96 K/uL (4.8-10.8)
[2019-02-25 04:46] LABS: BUN Creatinine Ratio 23.7 (10-20); Calcium 7.3 mg/dl (8.5-10.1); Creatinine Clr Calc Pharmacy 45.1 ml/min; Est GFR (African American) 69.2; Est GFR (Non-African American) 59.7; Magnesium 2.3 mg/dl (1.8-2.4); Potassium 4.3 mmol/L (3.5-5.1)
[2019-02-25 04:59] LABS: Phosphorus 1.7 mg/dl (2.5-4.9); T4 Free Thyroxine 1.08 ng/dl (0.8-1.6); Thyroid Stimulating Hormone 0.477 uIu/ml (0.300-4.500)
[2019-02-25 05:10] LABS: Echinocytes 1+; Immature Granulocytes % (auto) 3.3 %; Lymphocytes # (auto) 0.48 K/uL (1.2-3.4); Lymphocytes % (auto) 5.4 %; Monocytes # (auto) 0.07 K/uL (0.11-0.59); Monocytes % (auto) 0.8 %; Neutrophils # (auto) 8.11 K/uL (1.4-6.5); Neutrophils % (auto) 90.5 %
[2019-02-25] MEDS: methylPREDNISolone 40 MG in SYRINGE 0 ML IV SCH ×3 (05:19→21:58)
[2019-02-25] MEDS: ASCORBIC ACID 1,500 MG, THIAMINE HCL 100 MG in 0.9 % SODIUM CHLORIDE 100 ML IV SCH ×4 (05:20→23:31)
[2019-02-25 05:42] LABS: iSTAT Arterial Blood Gas HCO3 18 meg/L (19-24); iSTAT Arterial Blood Gas pCO2 31 mmHg (35-46); iSTAT Arterial Blood Gas pH 7.36 (7.35-7.45); iSTAT Arterial Blood Gas pO2 102 mmHg (80-95); iSTAT Carbon Dioxide 19 mEq/l (24-31); iSTAT Site Art Line
[2019-02-25] MEDS ORDERED: POTASSIUM PHOS 3 MMOL/1 ML INFUSION IV STA (05:49)
[2019-02-25] MEDS ORDERED: POTASSIUM PHOSPHATE 15 MMOL in SODIUM CHLORIDE 0.9% 250 ML IV ONE (06:15)
[2019-02-25] MEDS: INSULIN ASPART 100 UNITS/ML 3 ML PEN SC SCH ×5 (06:31→23:39)
--- NOTE | 2019-02-25 06:43 | Critical Care Progress Note ---
Date of Service February 25, 2019 Assessment & Plan (1) Severe sepsis with acute organ dysfunction: Reason Critically Ill: 78-year-old female with acute hypoxic respiratory failure requiring intubation mechanical ventilation and acute respiratory distress syndrome in the setting of severe sepsis. PLAN: Neuro: Sedation and analgesia -Continuing with Midazolam drip Will try to wean off sedation and assess patient's readiness for extubation periodically as she recovers from her infectious/metabolic insult Resp: Acute hypoxic respiratory failure -Intubation mechanical ventilation -High PEEP low FiO2 ardsnet guidelines Acute respiratory distress syndrome -No evidence of diffuse alveolar hemorrhage Multilobar pneumonia -Cefepime 2 g every 12 -Levaquin 750 mg received in ED -Possible prolonged QTC in the setting of sinus tachycardia -Daily EKG, patient unable to tolerate Levaquin would consider doxycycline for atypical coverage QTc interval today after starting levaquin 452. -MRSA nasal swab negative -Influenza negative: Empiric Tamiflu given lack of purulence in lungs Tachycardia -In prior records report of tachycardia prior to surgical procedures -Routine echo with moderate mitral regurgitation -Troponins peaked at .7 now down to .5 likely demand ischemia from her sepsis -TSH normal Fluids/Renal: Acute kidney injury: Improved -Convert from normal saline to vitamin C and thiamine Patient with tachycardia and borderline blood pressures, will give one liter of fluid and see if it helps -UA without clear signs of infection, will await culture as well Lactic acidosis -As high as 9.3 now down to 2.8 Hypokalemia hypomagnesemia -Replete PRN ID: Severe sepsis with multisystem organ dysfunction -Empiric pulmonary coverage levoquin cefepime -Viral studies pending. Blood culture NGTD GI/Nutrition: N.p.o. -Pepcid ordered: Anticipate greater than 48 hours of mechanical ventilation and high-dose steroids Heme: Pancytopenia -Suspect medication effect DVT prophylaxis: Heparin 5000 twice daily Endocrine: ICU hyperglycemia protocol TSH normal Solu-Medrol -40 mg IV every 8 Vascular access: Left arterial line, peripheral IVs -Patient consented for central line, intubation, bronchoscopy, arterial line Code Status: Full (2) ARDS (adult respiratory distress syndrome): (3) Acute respiratory failure with hypoxemia: (4) Abnormal electrocardiogram [ECG] [EKG]: (5) DVT prophylaxis: (6) Elevated lactic acid level: (7) History of breast cancer: (8) Neutropenia: (9) Acute renal failure: (10) Acute respiratory distress: (11) Pneumonia: (12) Hypoxia: (13) Elevated lactic acid level: (14) Leukopenia: (15) Anxiety: (16) Chronic back pain: (17) Depression: (18) Diabetes mellitus: (19) Hypercholesterolemia: Supervising Physician Co-Signing Physician Notes Dr. Bui was resident physician during care of patient. I separately evaluated patient for meng portions of the history and the exam. I was present during the critical portion of medical decision making, and I discussed the case with the resident. I generally agree with the findings and plan. Patient's acute hypoxic respiratory failure and acute respiratory distress syndrome appear to have improved, we are transitioned to the high PEEP low FiO2 table which is associated with improved outcomes. Additionally we have also started vitamin C and thiamine since treatment, she is already receiving steroids. Bronchoscopy has been completed and there has been no specific growth to date. Patient remains critically ill requiring mechanical ventilation. Subjective Lizzette Erickson is doing well this morning. She is on Midazolam drip for sedation and she is easily rousable and nods and shakes her head appropriately to questions. She was happy to hear that her passed along a message that he loved her very much and will be here to come see her this morning. Review of Systems Review of Systems: Unobtainable due to endotracheal tube Physical Exam Physical Exam: Constitutional: patient lying in bed, ET tube in place eyes open to gentle shoulder rub Eyes: Pupils equal round and reactive to light Respiratory: ET tube in place, lungs with bilateral breath sounds soft crackles bilateral lung bases Cardiovascular: Heart sounds dual, regular rate regular rhythm, No murmurs rubs skips or gallops GI: Abdomen soft, nontender, normal bowel sounds Neuro: Patient with no focal neuro deficitis, awake and alert, following commands Results & Data Vital Signs (Past 12 Hours) Vital Signs Temp Pulse Pulse Resp BP Pulse Ox 02/25/19 06:00 37.1 C 93 H 22 95/55 L 96 02/25/19 05:40 98 H 23 99 02/25/19 05:00 95 H 22 91/59 L 97 02/25/19 04:00 37.6 C H 100 H 22 99/56 L 98 02/25/19 03:00 120 H 26 H 123/50 L 97 02/25/19 02:45 113 H 27 H 90 02/25/19 02:00 37.7 C H 104 H 23 100/60 99 02/25/19 01:00 106 H 24 94/59 L 96 02/25/19 00:00 37.5 C 109 H 24 95/61 L 96 02/24/19 23:45 110 H 23 96 02/24/19 23:00 104 H 22 109/57 L 95 02/24/19 22:00 37.7 C H 103 H 22 105/56 L 97 02/24/19 21:00 104 H 22 100/57 L 96 02/24/19 20:56 106 H 22 97 02/24/19 20:00 37.8 C H 106 H 22 90/53 L 97 02/24/19 19:00 114 H 22 105/62 94 Critical Care Time Critical Care Time: Yes Total Critical Care Time: 45 I have personally spent 45 minutes of critical care time in the direct management of this patient. This is a life/limb threatening event. This includes time spent evaluating patient, direct bedside care, chart review, placing orders, interpretation of diagnostic studies, discussion with consultants, patient, and/or family members regarding treatment decisions, as well as other required patient management activities. This time is exclusive of all separately billable procedures, and teaching time and separate from and in addition to any other critical care service time. Resident Activity Tracking Resident Involvement: Resident Care Provided Care Provided: Adult Hospital Medicine (1) Acute renal failure Acute renal failure type: unspecified Qualified Code(s): N17.9 - Acute kidney failure, unspecified (2) Leukopenia Leukopenia type: unspecified Qualified Code(s): D72.819 - Decreased white blood cell count, unspecified (3) Neutropenia Neutropenia type: other drug-induced Qualified Code(s): D70.2 - Other drug- induced agranulocytosis (4) Pneumonia Laterality: right Lung location: lower lobe of lung Pneumonia type: due to unspecified organism Qualified Code(s): J18.9 - Pneumonia, unspecified organism
--- NOTE | 2019-02-25 06:51 | XRay Report ---
XR chest 1V portable CLINICAL HISTORY: Pneumonia dyspnea COMPARISON STUDY: 02/24/2019 FINDINGS: Endotracheal tube 2 cm with a chronic. Unchanging bibasilar parenchymal infiltrates. Nasoga stric tube mid stomach. IMPRESSION: 1. Endotracheal tube 2 cm from the naomi. 2. Unchanging basilar parenchymal infiltrates. 3. Nasogastric tube remains within the stomach. ACT 112: Negative or not required by law. The above report was generated using voice recognition software. It may contain grammatical, syntax or spelling errors. Electronically signed by: Arslan Norwood M.D. 02/25/2019 6:50 AM
[2019-02-25] MEDS: HEPARIN SOD 5,000 UNIT/0.5 ML VIAL SQ SCH ×2 (08:40→21:59)
[2019-02-25] MEDS: FAMOTIDINE 20 MG in SYRINGE 3 ML IV SCH (08:40)
[2019-02-25] MEDS ORDERED: MULTIVITAMIN TAB PO SCH (09:00)
[2019-02-25] MEDS ORDERED: B COMPLEX WITH VITAMIN C PO SCH (09:00)
[2019-02-25] MEDS ORDERED: CALCIUM CARBONATE 1250MG TAB PO SCH (09:00)
[2019-02-25] MEDS ORDERED: CYANOCOBALAMIN 500 MCG TABLET (VITAMIN B-12) PO SCH (09:00)
[2019-02-25] MEDS ORDERED: NORMOSOL-R 1,000 ML IV ONE (10:22)
[2019-02-25] MEDS: OSELTAMIVIR PHOSPHATE SUSP 30 MG/5 ML UDP PO SCH ×2 (10:35→21:58)
[2019-02-25] MEDS ORDERED: IMPACT LIQD 1.0 CAL 1,000 ML BAG OG SCH (11:30)
--- NOTE | 2019-02-25 12:23 | Pharmacy Report ---
Pharmacy Glycemic Short Note 2 - Date of Service February 25, 2019 - Glycemic Short BSG Results (Last 24 hours): 02/24/19 02/24/19 02/24/19 13:14 14:29 16:42 Glucose 140 H 201 H POC Glucose 124 H 02/24/19 02/25/19 02/25/19 20:39 02:06 04:17 Glucose 202 H POC Glucose 226 H 190 H 02/25/19 02/25/19 06:29 11:07 Glucose POC Glucose 169 H 178 H Outpatient Anti-diabetic Regimen: * Metformin 1000 mg po BID * A1c = 7.5 % on 02/06/19 Risk Factors for Insulin Resistance: * Steroids: methylprednisolone 40 mg IV q8h * Infection: on cefepime, oseltamivir * Diet: Impact @ 20 mL/hr (goal 60 mL/hr) * Intubation ASSESSMENT: * 78 yo F with well-controlled T2DM on one oral antihyperglycemic agent as outpatient admitted with hypoxia and started on steroids and antibiotics * Patient is now also intubated and tubefeeds are being intitiated * BSG's increased yesterday evening 2nd steroids but responded to initiation of Lantus last night * Will continue Novolog at current parameters, adding in coverage for CHO in tubefeeds * Will continue Lantus and increase dose if BSG >180 mg/dL at bedtime again PLAN FOR INPATIENT GLYCEMIC CONTROL: * Holding outpatient oral diabetes medications * Basal insulin: Lantus SQ HS based on BSG * 10 units for BSG less than 180 mg/dL * 20 units for BSG 180 mg/dL or greater * Bolus insulin * NovoLog per scale ACHS or Q6hrs while NPO * Goal Range: Low 120 mg/dL - High 160 mg/dL * Correction Factor: 30 mg/dL/unit * Nutritional / Prandial insulin per carb ratio of 1 unit per 10 grams CHO consumed (or administered in tubefeeds)
[2019-02-25 15:12] LABS: iSTAT Arterial Blood Gas HCO3 19 meg/L (19-24); iSTAT Arterial Blood Gas pCO2 31 mmHg (35-46); iSTAT Arterial Blood Gas pO2 62 mmHg (80-95); iSTAT Carbon Dioxide 20 mEq/l (24-31); iSTAT Site Art Line
[2019-02-25] MEDS ORDERED: INSULIN GLARGINE SOLOSTAR 100 UNITS/ML 3 ML PEN SC ONE (21:00)
--- NOTE | 2019-02-25 23:03 | Hospitalist Progress Note ---
Date of Service February 25, 2019 Assessment & Plan (1) Acute respiratory distress: Currently intubated and sedated in ICU Patient presents with by lateral lower lobe pneumonia Immunosuppressed for rheumatoid arthritis -chronic steroids, Plaquenil,Tocilizumab, and history of methotrexate Elevated lactic acid and neutropenic on admission Will give systemic steroids with Solu-Medrol Await blood cultures Continue IV antibiotics Daily chest x-ray No history consistent with pulmonary embolus (2) Elevated lactic acid level: Patient had a lactic acid of 7.6 on admission Improved to 2.8 Received 3 L of IV fluid on admission Follow serial lactic acid per protocol Blood cultures pending Urinalysis negative Patient with multifocal pneumonia with immunosuppression Patient received ceftriaxone and levofloxacin in the emergency department will continue cefepime 2 g every 12 hours (3) Abnormal electrocardiogram [ECG] [EKG]: trop peaked at 0.7, trending down. (4) Neutropenia: Chronic immunosuppression secondary to rheumatoid arthritis with meds as listed above Neutropenic precautions Daily labs No history of recent malignancy but does have history of breast cancer from 2002 Has never seen a rn night Follow labs (5) Acute renal failure: Secondary to vomiting and diarrhea for the last 3 days Follow serial labs Continue IV fluids secondary to elevated lactic acid NSS at 150 mL/hr Strict I's and O's - no indication for shore at this time (6) Diabetes mellitus: On Metformin at home HgbA1c at 7.5 Hold Metformin while inpatient and start Novolog SSI (7) Long-term use of immunosuppressant medication: Seropositive for RA Follows with Dr. Lester Hold OP prednisone as we will be starting IV methylprednisolone Pain currently under control (8) History of breast cancer: Completed treatment in 2002 No other hx of malignancy No oral medications or suppressive therapy (9) DVT prophylaxis: Enoxaparin at 30 mg daily secondary to decreased creatinine clearance and GFR Subjective 78 YO female s currently intubated. Unable to provide history. Review of Systems Review of Systems: All systems reviewed & are unremarkable except as noted in HPI & below and Unobtainable due to endotracheal tube Physical Exam Physical Exam: GENERAL : No acute distress. Intubated. EYES: No icterus, gaze conjugate. Pupils equal round and reactive to light NOSE: No evidence of epistaxis. Nonrebreather mask is in place MOUTH: No lesions or candidiasis. Mucosa is extremely dry. Tongue is midline. Nonrebreather mask is in place NECK: Supple. No JVD. No stridor appreciated. LUNGS: Coarse crackles at bilateral bases. No rhonchi. No expiratory wheezes. HEART: Regular, tachycardic. No appreciation of murmurs gallops or rubs. ABDOMEN: Soft, NT, ND, BS Present. No rebound tenderness EXTREMITIES: No LE edema, pedal pulses intact. All extremities are equal in strength but weak NEURO: A&OX3. Pupils equal round reactive to light. No focal deficits appreciated Results & Data Vital Signs (Past 12 Hours) Vital Signs Temp Pulse Resp BP Pulse Ox Pulse Ox 02/25/19 22:39 81 18 99 02/25/19 20:01 85 113/61 94 02/25/19 20:00 86 93 02/25/19 19:30 103 H 87 L 02/25/19 19:15 99 H 18 94 02/25/19 19:01 81 98/56 L 94 02/25/19 19:00 81 94 02/25/19 18:30 82 93 02/25/19 18:01 79 97/55 L 94 02/25/19 18:00 78 94 02/25/19 17:30 81 96 02/25/19 17:25 81 18 95 02/25/19 17:01 84 96/53 L 94 02/25/19 17:00 84 94 02/25/19 16:30 81 96 02/25/19 16:01 84 102/56 L 95 02/25/19 16:00 87 95 02/25/19 15:30 84 95 02/25/19 15:01 88 97/53 L 94 02/25/19 15:00 87 93 02/25/19 14:30 88 93 02/25/19 14:23 93 H 18 94 02/25/19 14:00 37.1 C 92 H 94/53 L 96 02/25/19 13:07 96 02/25/19 13:00 36.9 C 86 96 02/25/19 12:00 36.8 C 89 95 02/25/19 11:50 94 H 22 94 02/25/19 11:05 18 98 PG Care Time/CCT Total # of Minutes Spent Total Time Spent with Patient: Total time spent is greater than 50% [facility] (as documented) at patient's floor/unit and/or counseling patient: (1) Acute renal failure Acute renal failure type: unspecified Qualified Code(s): N17.9 - Acute kidney failure, unspecified (2) Neutropenia Neutropenia type: other drug-induced Qualified Code(s): D70.2 - Other drug- induced agranulocytosis
[2019-02-26] MEDS: CEFEPIME 2,000 MG in SYRINGE 7.5 ML IV SCH ×2 (00:46→13:19)
[2019-02-26] MEDS: fentaNYL citrate 100 MCG/2 ML VIAL IV PRN ×5 (03:36→16:50)
[2019-02-26] MEDS: INSULIN ASPART 100 UNITS/ML 3 ML PEN SC SCH ×5 (04:15→20:12)
[2019-02-26] MEDS: MIDAZOLAM HCL 125 MG/250 ML BAG IV SCH ×2 (04:20→19:41)
[2019-02-26 04:29] LABS: Hematocrit (blood only) 35.4 % (37-47); Hemoglobin 12.2 g/dL (12.0-16.0); Lymphocytes # (auto) 0.62 K/uL (1.2-3.4); Lymphocytes % (auto) 6.3 %; Mean Corpuscular Hemoglobin 32.5 pg (25-34); Mean Corpuscular Hgb Conc 34.5 g/dL (32-36); Mean Corpuscular Volume 94.4 fL (80-100); Mean Platelet Volume 9.3 fL (7.4-10.4); Monocytes # (auto) 0.52 K/uL (0.11-0.59); Monocytes % (auto) 5.3 %; Neutrophils # (auto) 8.56 K/uL (1.4-6.5); Neutrophils % (auto) 87.4 %; Platelet Count 109 K/uL (130-400); RDW Coefficient of Variation 14.2 % (11.5-14.5); RDW Standard Deviation 48.8 fL (36.4-46.3); Red Blood Count 3.75 M/uL (4.2-5.4)
[2019-02-26 04:47] LABS: BUN Creatinine Ratio 31.9 (10-20); Calcium 7.3 mg/dl (8.5-10.1); Creatinine Clr Calc Pharmacy 56.8 ml/min; Est GFR (African American) 94.3; Est GFR (Non-African American) 81.3; Magnesium 2.5 mg/dl (1.8-2.4); Phosphorus 1.6 mg/dl (2.5-4.9); Potassium 3.8 mmol/L (3.5-5.1)
[2019-02-26] MEDS ORDERED: POTASSIUM PHOS 3 MMOL/1 ML INFUSION IV STA (04:54)
[2019-02-26] MEDS: ASCORBIC ACID 1,500 MG, THIAMINE HCL 100 MG in 0.9 % SODIUM CHLORIDE 100 ML IV SCH ×3 (05:22→17:34)
[2019-02-26] MEDS: methylPREDNISolone 40 MG in SYRINGE 0 ML IV SCH ×3 (05:22→21:38)
[2019-02-26] MEDS ORDERED: POTASSIUM PHOSPHATE 15 MMOL in SODIUM CHLORIDE 0.9% 250 ML IV ONE (05:30)
[2019-02-26 05:42] LABS: iSTAT Arterial Blood Gas HCO3 21 meg/L (19-24); iSTAT Arterial Blood Gas pCO2 33 mmHg (35-46); iSTAT Arterial Blood Gas pH 7.41 (7.35-7.45); iSTAT Arterial Blood Gas pO2 125 mmHg (80-95); iSTAT Carbon Dioxide 22 mEq/l (24-31); iSTAT Site Art Line
--- NOTE | 2019-02-26 06:46 | Critical Care Progress Note ---
Date of Service February 26, 2019 Assessment & Plan (1) Severe sepsis with acute organ dysfunction: Reason Critically Ill: 78-year-old female with acute hypoxic respiratory failure requiring intubation mechanical ventilation and acute respiratory distress syndrome in the setting of pneumonia and severe sepsis. PLAN: Neuro: Sedation and analgesia -Continuing with Midazolam drip Will try to wean off sedation and assess patient's readiness for extubation periodically as she recovers from her infectious/metabolic insult Resp: Acute hypoxic respiratory failure -Intubation mechanical ventilation -High PEEP low FiO2 ardsnet guidelines Acute respiratory distress syndrome -No evidence of diffuse alveolar hemorrhage Multilobar pneumonia -Cefepime 2 g every 12 -Levaquin 750 mg received in ED -Possible prolonged QTC in the setting of sinus tachycardia -Daily EKG, patient unable to tolerate Levaquin would consider doxycycline for atypical coverage QTc interval today after starting levaquin 452. -MRSA nasal swab negative -Influenza negative: Empiric Tamiflu given lack of purulence in lungs Tachycardia -In prior records report of tachycardia prior to surgical procedures -Routine echo with moderate mitral regurgitation -Troponins peaked at .7 now down to .5 likely demand ischemia from her sepsis -TSH normal Fluids/Renal: Acute kidney injury: Improved -Convert from normal saline to vitamin C and thiamine Patient with tachycardia and borderline blood pressures, will give one liter of fluid and see if it helps -UA without clear signs of infection, will await culture as well Lactic acidosis -As high as 9.3 now down to 2.8 Hypokalemia hypomagnesemia -Replete PRN ID: Severe sepsis with multisystem organ dysfunction -Empiric pulmonary coverage levoquin cefepime -Viral studies pending. Will repeat rapid flu today Blood culture NGTD GI/Nutrition: N.p.o. -Pepcid ordered: Anticipate greater than 48 hours of mechanical ventilation and high-dose steroids Heme: Pancytopenia -Suspect medication effect DVT prophylaxis: Heparin 5000 twice daily Endocrine: ICU hyperglycemia protocol TSH normal Solu-Medrol -40 mg IV every 8 Vascular access: Left arterial line, peripheral IVs -Patient consented for central line, intubation, bronchoscopy, arterial line Code Status: Full (2) ARDS (adult respiratory distress syndrome): (3) Acute respiratory failure with hypoxemia: (4) Abnormal electrocardiogram [ECG] [EKG]: (5) DVT prophylaxis: (6) Elevated lactic acid level: (7) History of breast cancer: (8) Neutropenia: (9) Acute renal failure: (10) Acute respiratory distress: (11) Pneumonia: (12) Hypoxia: (13) Leukopenia: (14) Anxiety: (15) Chronic back pain: (16) Depression: (17) Diabetes mellitus: (18) Hypercholesterolemia: Supervising Physician Co-Signing Physician Notes Dr. Bui was resident physician during care of patient. I separately evaluated patient for meng portions of the history and the exam. I was present during the critical portion of medical decision making, and I discussed the case with the resident. I generally agree with the findings and plan. The patient's hypoxic lexie respiratory failure has improved and she is on rather minimal vent settings. Contemplated possible extubation however when transitioning to a spontaneous breathing trial the patient becomes very tachypneic and has extremely low tidal volumes. I am concerned that the patient's lung compliance is low, she still has significant infiltrates on lung ultrasound which would be consistent with pulmonary edema. We will continue to diurese the patient and reassess for possible extubation tomorrow. Subjective Lizzette Erickson was seen this morning, ET tube still in place, easily wakes to voice and is able to follow instructions and is calm and alert. She fell back asleep and shortly thereafter woke up and immediately started to attempt to pull out her ET tube and OG tube. She was not successful as the respiratory therapist saw her from across the room and three of us were able to calm her down. No OG tube appears to still be in place as does ET tube. Soft restraints have been ordered. Review of Systems Review of Systems: Unobtainable due to endotracheal tube Physical Exam Physical Exam: Constitutional: patient lying in bed, ET tube in place eyes open to gentle shoulder rub Eyes: Pupils equal round and reactive to light Respiratory: ET tube in place, lungs with bilateral breath sounds soft crackles bilateral lung bases Cardiovascular: Heart sounds dual, regular rate regular rhythm, No murmurs rubs skips or gallops GI: Abdomen soft, nontender, normal bowel sounds Neuro: Patient with no focal neuro deficitis, awake and alert, following commands Results & Data Vital Signs (Past 12 Hours) Vital Signs Temp Pulse Pulse Resp BP BP BP 02/26/19 06:00 81 18 107/66 02/26/19 05:35 88 26 H 02/26/19 05:00 78 01/01/20 04:01 81 101/62 02/26/19 04:00 78 101/62 02/26/19 03:00 85 02/26/19 02:03 75 18 02/26/19 02:01 67 89/58 L 02/26/19 02:00 72 02/26/19 01:08 79 18 02/26/19 01:01 79 96/60 L 02/26/19 01:00 80 02/26/19 00:59 76 18 98/52 L 02/26/19 00:00 36.8 C 78 18 96/60 L 97/51 L 02/25/19 23:20 81 02/25/19 23:10 80 02/25/19 23:01 81 98/56 L 02/25/19 23:00 81 02/25/19 22:50 83 02/25/19 22:40 81 02/25/19 22:39 81 18 02/25/19 22:30 86 02/25/19 22:20 83 02/25/19 22:10 78 02/25/19 22:01 80 105/60 02/25/19 22:00 82 02/25/19 21:50 82 02/25/19 21:40 81 02/25/19 21:30 79 02/25/19 21:20 83 02/25/19 21:10 92 H 02/25/19 21:01 85 98/55 L 02/25/19 21:00 86 02/25/19 20:50 85 02/25/19 20:40 81 02/25/19 20:30 82 02/25/19 20:20 84 02/25/19 20:10 83 02/25/19 20:02 86 02/25/19 20:01 85 113/61 02/25/19 20:00 86 02/25/19 19:30 103 H 02/25/19 19:15 99 H 18 02/25/19 19:01 81 98/56 L 02/25/19 19:00 81 Pulse Ox Pulse Ox 02/26/19 06:00 92 02/26/19 05:35 99 02/26/19 05:00 98 02/26/19 04:01 93 02/26/19 04:00 94 02/26/19 03:00 94 02/26/19 02:03 96 02/26/19 02:01 93 02/26/19 02:00 94 02/26/19 01:08 96 02/26/19 01:01 94 02/26/19 01:00 94 02/26/19 00:59 91 02/26/19 00:00 94 94 02/25/19 23:20 97 02/25/19 23:10 97 02/25/19 23:01 96 02/25/19 23:00 96 02/25/19 22:50 96 02/25/19 22:40 96 02/25/19 22:39 99 02/25/19 22:30 96 02/25/19 22:20 98 02/25/19 22:10 98 02/25/19 22:01 98 02/25/19 22:00 98 02/25/19 21:50 98 02/25/19 21:40 98 02/25/19 21:30 97 02/25/19 21:20 97 02/25/19 21:10 96 02/25/19 21:01 97 02/25/19 21:00 97 02/25/19 20:50 97 02/25/19 20:40 96 02/25/19 20:30 96 02/25/19 20:20 96 02/25/19 20:10 95 02/25/19 20:02 94 02/25/19 20:01 94 02/25/19 20:00 93 02/25/19 19:30 87 L 02/25/19 19:15 94 02/25/19 19:01 94 02/25/19 19:00 94 Critical Care Time Critical Care Time: Yes Total Critical Care Time: 40 I have personally spent 40 minutes of critical care time in the direct management of this patient. This is a life/limb threatening event. This includes time spent evaluating patient, direct bedside care, chart review, placing orders, interpretation of diagnostic studies, discussion with consultants, patient, and/or family members regarding treatment decisions, as well as other required patient management activities. This time is exclusive of all separately billable procedures, and teaching time and separate from and in addition to any other critical care service time. Resident Activity Tracking Resident Involvement: Resident Care Provided Care Provided: Adult Hospital Medicine (1) Acute renal failure Acute renal failure type: unspecified Qualified Code(s): N17.9 - Acute kidney failure, unspecified (2) Leukopenia Leukopenia type: unspecified Qualified Code(s): D72.819 - Decreased white blood cell count, unspecified (3) Neutropenia Neutropenia type: other drug-induced Qualified Code(s): D70.2 - Other drug- induced agranulocytosis (4) Pneumonia Laterality: right Lung location: lower lobe of lung Pneumonia type: due to unspecified organism Qualified Code(s): J18.9 - Pneumonia, unspecified organism
[2019-02-26] MEDS ORDERED: LEVOFLOXACIN/D5W 750 MG/150 ML BAG IV SCH (09:00)
[2019-02-26] MEDS: HEPARIN SOD 5,000 UNIT/0.5 ML VIAL SQ SCH ×2 (09:45→20:10)
[2019-02-26] MEDS: OSELTAMIVIR PHOSPHATE SUSP 30 MG/5 ML UDP PO SCH ×2 (09:46→20:16)
[2019-02-26] MEDS: FAMOTIDINE 20 MG in SYRINGE 3 ML IV SCH (09:46)
--- NOTE | 2019-02-26 09:47 | XRay Report ---
SINGLE VIEW CHEST CLINICAL HISTORY: Pneumonia. FINDINGS: An AP, portable, upright chest radiograph is compared to study dated 02/25/2019 and correla bashir with chest CT dated 07/03/2016. The examination is degraded by portable technique and patient rotat ion. Endotracheal and enteric tubes are unchanged in position. The heart is top normal for projection . There is pulmonary vascular congestion. Hazy bilateral airspace opacities are similar to previous. There are small pleural effusions with bibasilar consolidation. No pneumothorax is seen. The skeletal structures are osteopenic. The bony thorax is grossly intact. IMPRESSION: 1. There is evidence of congestive failure. 2. Hazy bilateral airspace opacities fever interstitial edema. Correlate clinically for evidence of s uperimposed pneumonia. 3. There are small pleural effusions with bibasilar consolidation. ACT 112: Negative or not required by law. Electronically signed by: Ed Bowman M.D. 02/26/2019 9:45 AM
--- NOTE | 2019-02-26 14:14 | Hospitalist Progress Note ---
Date of Service February 26, 2019 Assessment & Plan (1) Severe sepsis with acute organ dysfunction: lactic acid coming down to 2.4 no pressors required, still with acute hypoxic respiratory failure MICHELA resolved continue Cefepime and Levaquin blood, urine, bronchial lavage cultures all negative no fever, WBC is 9 (2) Pneumonia: multifocal pneumonia as above (3) ARDS (adult respiratory distress syndrome): remains intubated today (4) Acute respiratory distress: Currently intubated and sedated in ICU Patient presents with by lateral lower lobe pneumonia Immunosuppressed for rheumatoid arthritis -chronic steroids, Plaquenil,Tocilizumab, and history of methotrexate Elevated lactic acid and neutropenic on admission lactic acid down to 2.4 today, WBC is 9.8 continue systemic steroids with Solu-Medrol Continue IV Cefepime and Levaquin no growth on bronchial cultures (5) Elevated lactic acid level: Patient had a lactic acid of 7.6 on admission Improved to 2.4 today Received 3 L of IV fluid on admission Follow serial lactic acid per protocol Blood cultures show no growth at this time Urinalysis negative, urine culture no growth Patient with multifocal pneumonia with immunosuppression will continue cefepime 2 g every 12 hours and Levaquin (6) Abnormal electrocardiogram [ECG] [EKG]: trop peaked at 0.7, trending down. this is demand ischemia (7) Neutropenia: Chronic immunosuppression secondary to rheumatoid arthritis with meds as listed above Neutropenic precautions WBC up to 9 (8) Acute renal failure: Secondary to vomiting and diarrhea for the last 3 days prior to admission Cr down to 0.7 no further fluids, receiving enteral feedings (9) Diabetes mellitus: On Metformin at home HgbA1c at 7.5 Hold Metformin while inpatient and start Novolog SSI monitor for hypoglycemia (10) Long-term use of immunosuppressant medication: Seropositive for RA Follows with Dr. Lester Hold OP prednisone as we will be starting IV methylprednisolone Pain currently under control (11) History of breast cancer: Completed treatment in 2002 No other hx of malignancy No oral medications or suppressive therapy (12) DVT prophylaxis: Enoxaparin at 30 mg daily secondary to decreased creatinine clearance and GFR Subjective patient intubated no major changes over night some consideration for extubation today but patient needs further diuresis reviewed chart reviewed labs, WBC normal, BMP stable discussed with injection molding engineer Review of Systems Review of Systems: Unobtainable due to endotracheal tube Physical Exam Constitutional: + ill appearing and + mechanically ventilated; no acute distress Eyes: PERRL, conjunctivae normal, anicteric sclerae Neck: trachea midline, no thyromegaly Respiratory: Auscultation: + crackles (bases) Cardiovascular: Rate/Rhythm: regular rhythm and + tachycardic Heart Sounds: normal S1 and normal S2; no murmur Vessels: no JVD Extremities: normal capillary refill; no edema Gastrointestinal (Abdomen): normal bowel sounds, soft, nontender, no hepatosplenomegaly Musculoskeletal: no cyanosis or clubbing, extremities motor strength 5/5 Skin: no rashes, warm and dry Neurologic: patellar DTR's 2+ bilat, sensation intact and PERRL, EOMI, accommodation nl, no face palsy, no dysarthria Psychiatric: Orientation: + not alert (sedated) Lymphatic: no cervical or axillary lymphadenopathy Results & Data Vital Signs (Past 12 Hours) Vital Signs Pulse Resp BP Pulse Ox 02/26/19 12:30 103 H 95 02/26/19 12:06 82 103/61 94 02/26/19 11:01 77 116/69 96 02/26/19 10:45 90 25 H 97 02/26/19 10:01 85 116/74 95 02/26/19 09:01 86 111/65 93 02/26/19 08:02 107 H 138/73 96 02/26/19 08:00 85 02/26/19 07:40 79 20 96 02/26/19 07:01 86 108/62 93 02/26/19 06:00 81 18 107/66 92 02/26/19 05:35 88 26 H 99 02/26/19 05:00 78 98 02/26/19 04:01 81 101/62 93 02/26/19 04:00 78 101/62 94 02/26/19 03:00 85 94 Laboratory Results Laboratory Results - last 24 hr 02/25/19 02/25/19 02/25/19 14:58 15:57 19:56 WBC RBC Hgb Hct MCV MCH MCHC RDW Std Deviation RDW Coeff of Delma Plt Count MPV Immature Gran % (Auto) Neut % (Auto) Lymph % (Auto) Ellis % (Auto) Eos % (Auto) Baso % (Auto) Immature Gran # (Auto) Neut # (Auto) Lymph # (Auto) Ellis # (Auto) Eos # (Auto) Baso # (Auto) Sample Site Art Line POC pH 7.40 POC pCO2 31 L POC pO2 62 L POC HCO3 19 POC Total CO2 20 L POC Base Excess -6.0 POC ABG O2 Sat 92.0 Eric Test NA O2 Delivery Device Ventilator POC O2 Rate 18 Minute Ventilation Tidal Volume 360 PEEP 5 Sodium Potassium Chloride Carbon Dioxide Anion Gap BUN Creatinine Est Cr Clr Drug Dosing Est GFR ( Amer) Est GFR (Non-Af Amer) BUN/Creatinine Ratio Glucose POC Glucose 208 H 191 H Lactate Calcium Phosphorus Magnesium 02/25/19 02/25/19 02/26/19 22:01 23:26 04:06 WBC RBC Hgb Hct MCV MCH MCHC RDW Std Deviation RDW Coeff of Delma Plt Count MPV Immature Gran % (Auto) Neut % (Auto) Lymph % (Auto) Ellis % (Auto) Eos % (Auto) Baso % (Auto) Immature Gran # (Auto) Neut # (Auto) Lymph # (Auto) Ellis # (Auto) Eos # (Auto) Baso # (Auto) Sample Site POC pH POC pCO2 POC pO2 POC HCO3 POC Total CO2 POC Base Excess POC ABG O2 Sat Eric Test O2 Delivery Device POC O2 Rate Minute Ventilation Tidal Volume PEEP Sodium Potassium Chloride Carbon Dioxide Anion Gap BUN Creatinine Est Cr Clr Drug Dosing Est GFR ( Amer) Est GFR (Non-Af Amer) BUN/Creatinine Ratio Glucose POC Glucose 193 H 186 H 175 H Lactate Calcium Phosphorus Magnesium 02/26/19 02/26/19 02/26/19 04:15 04:15 04:15 WBC 9.80 RBC 3.75 L Hgb 12.2 Hct 35.4 L MCV 94.4 MCH 32.5 MCHC 34.5 RDW Std Deviation 48.8 H RDW Coeff of Delma 14.2 Plt Count 109 L MPV 9.3 Immature Gran % (Auto) 1.0 Neut % (Auto) 87.4 Lymph % (Auto) 6.3 Ellis % (Auto) 5.3 Eos % (Auto) 0.0 Baso % (Auto) 0.0 Immature Gran # (Auto) 0.10 H Neut # (Auto) 8.56 H Lymph # (Auto) 0.62 L Ellis # (Auto) 0.52 Eos # (Auto) 0.00 Baso # (Auto) 0.00 Sample Site POC pH POC pCO2 POC pO2 POC HCO3 POC Total CO2 POC Base Excess POC ABG O2 Sat Eric Test O2 Delivery Device POC O2 Rate Minute Ventilation Tidal Volume PEEP Sodium 140 Potassium 3.8 Chloride 112 H Carbon Dioxide 25 Anion Gap 3.0 BUN 23 H Creatinine 0.72 Est Cr Clr Drug Dosing 56.8 Est GFR ( Amer) 94.3 Est GFR (Non-Af Amer) 81.3 BUN/Creatinine Ratio 31.9 H Glucose 163 H POC Glucose Lactate 2.4 H* Calcium 7.3 L Phosphorus 1.6 L Magnesium 2.5 H 02/26/19 02/26/19 02/26/19 05:29 09:41 12:10 WBC RBC Hgb Hct MCV MCH MCHC RDW Std Deviation RDW Coeff of Delma Plt Count MPV Immature Gran % (Auto) Neut % (Auto) Lymph % (Auto) Ellis % (Auto) Eos % (Auto) Baso % (Auto) Immature Gran # (Auto) Neut # (Auto) Lymph # (Auto) Ellis # (Auto) Eos # (Auto) Baso # (Auto) Sample Site Art Line POC pH 7.41 POC pCO2 33 L POC pO2 125 H POC HCO3 21 POC Total CO2 22 L POC Base Excess -3.0 POC ABG O2 Sat 99.0 H Eric Test NA O2 Delivery Device Ventilator POC O2 Rate 18 Minute Ventilation 8.9 Tidal Volume 360 PEEP 5 Sodium Potassium Chloride Carbon Dioxide Anion Gap BUN Creatinine Est Cr Clr Drug Dosing Est GFR ( Amer) Est GFR (Non-Af Amer) BUN/Creatinine Ratio Glucose POC Glucose 141 H 148 H Lactate Calcium Phosphorus Magnesium Medications Administered Current Inpatient Medications Dextrose (Dextrose 50%) 25 - 50 ml IV UD PRN; Protocol PRN Reason: Hypoglycemia Protocol Stop: 03/26/19 13:06 Enteral Nutritional Formula (Impact 1.0 Reji) 1,000 ml OG UD DAVID; Protocol Stop: 03/27/19 11:29 Fentanyl Citrate (Fentanyl Citrate) 50 mcg IV Q2H PRN PRN Reason: Moderate Pain (4,5,6) Stop: 03/10/19 15:37 Last Admin: 02/26/19 10:55 Dose: 50 mcg Documented by: Furosemide (Lasix) 40 mg PO [id number] DAVID Stop: 03/28/19 16:59 Glucagon (Glucagen) 1 mg SQ UD PRN; Protocol PRN Reason: Hypoglycemia Protocol Stop: 03/26/19 13:06 Glucose (Dex4 Glucose) 4 - 8 tabs PO UD PRN; Protocol PRN Reason: Hypoglycemia Protocol Stop: 03/26/19 13:06 Glucose (Glucose 40%) 15 - 30 gm PO UD PRN; Protocol PRN Reason: Hypoglycemia Protocol Stop: 03/26/19 13:06 Heparin Sodium (Porcine) (Heparin Sodium (Porcine)) 5,000 units SQ Q12 DAVID Stop: 03/26/19 20:59 Last Admin: 02/26/19 09:45 Dose: 5,000 units Documented by: Cefepime HCl 2,000 mg/ Syringe 20 mls @ 5.5 mls/min IV Q12H DAVID; Protocol Stop: 03/03/19 13:29 Last Admin: 02/26/19 13:19 Dose: 5.5 mls/min Documented by: Methylprednisolone 40 mg/ (Syringe) 0.64 mls @ 1.5 mls/min IV Q8H DAVID Stop: 03/26/19 13:59 Last Admin: 02/26/19 13:20 Dose: 1.5 mls/min Documented by: Ascorbic Acid 1,500 mg/Thiamine HCl 100 mg/ Sodium Chloride 104 mls @ 207 mls/hr IV Q6H [facility] Stop: 02/28/19 12:31 Last Infusion: 02/26/19 12:44 Dose: Infused Documented by: Midazolam HCl (Versed) 125 mg in 250 mls @ 10 mls/hr IV .Q24H DAVID; Protocol Stop: 03/26/19 17:14 Last Titration: 02/26/19 08:44 Dose: 5 mg/hr, 10 mls/hr Documented by: Famotidine 20 mg/ Syringe 5 mls @ 2.5 mls/min IV DAILY DAVID Stop: 03/28/19 08:59 Last Admin: 02/26/19 09:46 Dose: 2.5 mls/min Documented by: Levofloxacin/Dextrose (Levaquin/D5w) 750 mg in 150 mls @ 100 mls/hr IV Q2D@0900 [facility]; Protocol Stop: 03/02/19 23:59 Last Infusion: 02/26/19 12:16 Dose: Infused Documented by: Insulin Aspart (Novolog Flexpen) 0 units SC Q4 DAVID; Protocol Stop: 01/30/20 10:59 Last Admin: 02/26/19 12:11 Dose: 2 units Documented by: Insulin Glargine (Lantus Solostar Pen) 0 units SC HS DAVID; Protocol Stop: 03/28/19 20:59 Miscellaneous Information (Consult Glycemic Management Pharmacy) 1 ea N/A UD PRN; Protocol PRN Reason: Consult Stop: 03/26/19 13:18 Oseltamivir Phosphate (Tamiflu) 30 mg PO BID DAVID; Protocol Stop: 03/01/19 20:59 Last Admin: 02/26/19 09:46 Dose: 30 mg Documented by: PG Care Time/CCT Total # of Minutes Spent Total Time Spent with Patient: Total time spent is greater than 50% in coordination of care (as documented) at patient's floor/unit and/or counseling patient: (1) Neutropenia Neutropenia type: other drug-induced Qualified Code(s): D70.2 - Other drug- induced agranulocytosis (2) Acute renal failure Acute renal failure type: unspecified Qualified Code(s): N17.9 - Acute kidney failure, unspecified (3) Pneumonia Laterality: right Lung location: lower lobe of lung Pneumonia type: due to unspecified organism Qualified Code(s): J18.9 - Pneumonia, unspecified organism
[2019-02-26 15:29] LABS: Influenza A virus by PCR Neg for Influ A (Neg); Influenza B virus by PCR Neg for Influ B (Neg)
[2019-02-26] MEDS: FUROSEMIDE 40 MG TAB PO SCH (16:22)
[2019-02-26] MEDS: INSULIN GLARGINE SOLOSTAR 100 UNITS/ML 3 ML PEN SC SCH (20:11)
[2019-02-27] MEDS: ASCORBIC ACID 1,500 MG, THIAMINE HCL 100 MG in 0.9 % SODIUM CHLORIDE 100 ML IV SCH ×4 (00:21→18:44)
[2019-02-27] MEDS: INSULIN ASPART 100 UNITS/ML 3 ML PEN SC SCH ×6 (00:22→21:30)
[2019-02-27 00:53] LABS: BUN Creatinine Ratio 35.7 (10-20); Calcium 7.8 mg/dl (8.5-10.1); Creatinine Clr Calc Pharmacy 55.2 ml/min; Est GFR (African American) 85.6; Est GFR (Non-African American) 73.8; Potassium 3.7 mmol/L (3.5-5.1)
[2019-02-27 01:12] LABS: Phosphorus 1.6 mg/dl (2.5-4.9)
[2019-02-27] MEDS: fentaNYL citrate 100 MCG/2 ML VIAL IV PRN ×5 (01:27→21:24)
[2019-02-27] MEDS ORDERED: POTASSIUM PHOS 3 MMOL/1 ML INFUSION IV STA (01:30)
[2019-02-27] MEDS ORDERED: POTASSIUM PHOSPHATE 21 MMOL in SODIUM CHLORIDE 0.9% 500 ML IV ONE (02:00)
[2019-02-27] MEDS: CEFEPIME 2,000 MG in SYRINGE 7.5 ML IV SCH ×2 (02:00→13:26)
[2019-02-27] MEDS ORDERED: FUROSEMIDE 20 MG in SYRINGE 0 ML IV ONE (02:05)
[2019-02-27] MEDS ORDERED: FUROSEMIDE 40 MG/4 ML VIAL IV ONE (02:30)
[2019-02-27 04:44] LABS: Basophils # (auto) 0.01 K/uL (0-0.2); Basophils % (auto) 0.1 %; Hematocrit (blood only) 36.7 % (37-47); Hemoglobin 12.3 g/dL (12.0-16.0); Immature Granulocytes # (auto) 0.19 K/uL (0.00-0.02); Immature Granulocytes % (auto) 1.9 %; Lymphocytes # (auto) 0.93 K/uL (1.2-3.4); Lymphocytes % (auto) 9.1 %; Mean Corpuscular Hemoglobin 32.1 pg (25-34); Mean Corpuscular Hgb Conc 33.5 g/dL (32-36); Mean Corpuscular Volume 95.8 fL (80-100); Mean Platelet Volume 9.4 fL (7.4-10.4); Monocytes # (auto) 1.09 K/uL (0.11-0.59); Monocytes % (auto) 10.6 %; Neutrophils # (auto) 8.04 K/uL (1.4-6.5); Neutrophils % (auto) 78.3 %; Platelet Count 129 K/uL (130-400); RDW Coefficient of Variation 14.1 % (11.5-14.5); RDW Standard Deviation 49.3 fL (36.4-46.3); Red Blood Count 3.83 M/uL (4.2-5.4); White Blood Count 10.26 K/uL (4.8-10.8)
[2019-02-27 04:53] LABS: INR 1.1 (0.9-1.1); Prothrombin Time 11.4 Seconds (9.0-12.0)
[2019-02-27 05:05] LABS: BUN Creatinine Ratio 37.9 (10-20); Calcium 7.6 mg/dl (8.5-10.1); Creatinine Clr Calc Pharmacy 54.5 ml/min; Est GFR (African American) 84.3; Est GFR (Non-African American) 72.7; Magnesium 1.9 mg/dl (1.8-2.4); Potassium 3.9 mmol/L (3.5-5.1)
[2019-02-27 05:07] LABS: Phosphorus 3.3 mg/dl (2.5-4.9)
[2019-02-27 05:44] LABS: iSTAT Arterial Blood Gas HCO3 24 meg/L (19-24); iSTAT Arterial Blood Gas pCO2 34 mmHg (35-46); iSTAT Arterial Blood Gas pH 7.46 (7.35-7.45); iSTAT Arterial Blood Gas pO2 81 mmHg (80-95); iSTAT Carbon Dioxide 25 mEq/l (24-31); iSTAT FiO2 40 %; iSTAT Site Art Line
[2019-02-27] MEDS: methylPREDNISolone 40 MG in SYRINGE 0 ML IV SCH ×2 (05:47→18:47)
--- NOTE | 2019-02-27 06:21 | Critical Care Progress Note ---
Date of Service February 27, 2019 Assessment & Plan (1) Severe sepsis with acute organ dysfunction: Reason Critically Ill: 78-year-old female with acute hypoxic respiratory failure requiring intubation mechanical ventilation and acute respiratory distress syndrome in the setting of pneumonia and severe sepsis. PLAN: Neuro: Sedation and analgesia -Continuing with Midazolam drip Will try to wean off sedation and assess patient's readiness for extubation periodically as she recovers from her infectious/metabolic insult Patient following instruction on vent Resp: Acute hypoxic respiratory failure -Intubation mechanical ventilation -High PEEP low FiO2 ardsnet guidelines Acute respiratory distress syndrome -No evidence of diffuse alveolar hemorrhage Multilobar pneumonia -Cefepime 2 g every 12 -Levaquin 750 mg received in ED -Possible prolonged QTC in the setting of sinus tachycardia -Daily EKG, patient unable to tolerate Levaquin would consider doxycycline for atypical coverage QTc interval improved. -MRSA nasal swab negative -Influenza negative: Empiric Tamiflu given lack of purulence in lungs CTA today showing extensive bilateral consolidation possible fluid overload vs pneumonia, diuresed 3.5 L in last 24 hours Tachycardia -In prior records report of tachycardia prior to surgical procedures -Routine echo with moderate mitral regurgitation -Troponins peaked at .7 likely demand ischemia from her sepsis -TSH normal Fluids/Renal: Acute kidney injury: Improved -Converted from normal saline to vitamin C and thiamine -UA without clear signs of infection, will await culture as well Lactic acidosis -REsolved to 2.4 Hypokalemia hypomagnesemia -Replete PRN ID: Severe sepsis with multisystem organ dysfunction -Empiric pulmonary coverage levaquin cefepime -Viral studies still pending. Repeat rapid flu negative Blood culture NGTD GI/Nutrition: N.p.o. -Pepcid ordered: Anticipate greater than 48 hours of mechanical ventilation and high-dose steroids Heme: Pancytopenia -Suspect medication effect DVT prophylaxis: Heparin 5000 twice daily Endocrine: ICU hyperglycemia protocol TSH normal Solu-Medrol -40 mg IV every 8 Vascular access: Left arterial line, peripheral IVs -Patient consented for central line, intubation, bronchoscopy, arterial line Code Status: Full (2) ARDS (adult respiratory distress syndrome): (3) Acute respiratory failure with hypoxemia: (4) Abnormal electrocardiogram [ECG] [EKG]: (5) DVT prophylaxis: (6) Elevated lactic acid level: (7) History of breast cancer: (8) Neutropenia: (9) Acute renal failure: (10) Acute respiratory distress: (11) Pneumonia: (12) Hypoxia: (13) Leukopenia: (14) Anxiety: (15) Chronic back pain: (16) Depression: (17) Diabetes mellitus: (18) Hypercholesterolemia: Supervising Physician Co-Signing Physician Notes Dr. Bui was resident physician during care of patient. I separately evaluated patient for meng portions of the history and the exam. I was present during the critical portion of medical decision making, and I discussed the case with the resident. I generally agree with the findings and plan. Patient was discussed on multidisciplinary rounds. The patient has failed a second spontaneous breathing trial much in the same fashion. The patient is on rather low ventilator settings, we will transition to SIMV PRVC mode of ventilation and hopefully slowly transition to pressure support ventilation. The patient does not appear to be dyssynchronous with the SIMV mode and this may help us with the patient slowly increasing the work of breathing. Remains critically ill due to hypoxic respiratory failure. Subjective Ms. Erickson remains intubated, multiple attempts at weaning vent settings were failed. Patient still requires diuresis 1 L positive since admissino 3.5 L down over last 24 hours. Review of Systems Review of Systems: Unobtainable due to endotracheal tube Physical Exam Physical Exam: Constitutional: patient lying in bed, ET tube in place eyes open to gentle shoulder rub Eyes: Pupils equal round and reactive to light Respiratory: ET tube in place, lungs with bilateral breath sounds soft crackles bilateral lung bases Cardiovascular: Heart sounds dual, regular rate regular rhythm, No murmurs rubs skips or gallops GI: Abdomen soft, nontender, normal bowel sounds Neuro: Patient with no focal neuro deficitis, awake and alert, following commands Results & Data Vital Signs (Past 12 Hours) Vital Signs Pulse Resp BP Pulse Ox 02/27/19 06:01 94 H 151/85 H 94 02/27/19 05:01 74 133/77 97 02/27/19 05:00 22 02/27/19 04:01 75 133/75 96 02/27/19 03:01 74 128/77 96 02/27/19 02:01 70 111/61 93 02/27/19 02:00 92 H 18 78 L 02/27/19 01:01 88 136/80 93 02/27/19 00:01 69 124/73 96 02/27/19 00:00 73 01/01/20 23:27 74 22 96 02/26/19 23:01 74 133/74 96 02/26/19 22:10 74 96 02/26/19 22:01 69 119/67 95 02/26/19 22:00 69 95 02/26/19 21:50 72 97 02/26/19 21:40 78 97 02/26/19 21:30 70 95 02/26/19 21:20 72 95 02/26/19 21:10 72 95 02/26/19 21:02 77 95 02/26/19 21:01 79 118/64 94 02/26/19 21:00 86 94 02/26/19 20:50 79 94 02/26/19 20:45 82 22 95 02/26/19 20:40 91 H 94 02/26/19 20:30 91 H 95 02/26/19 20:20 84 94 02/26/19 20:10 84 93 02/26/19 20:02 82 93 02/26/19 20:01 85 114/66 93 02/26/19 20:00 84 93 02/26/19 19:30 66 94 02/26/19 19:02 73 94 02/26/19 19:01 74 114/65 94 02/26/19 19:00 72 94 02/26/19 18:30 79 95 Critical Care Time Critical Care Time: Yes Total Critical Care Time: 45 I have personally spent 45 minutes of critical care time in the direct management of this patient. This is a life/limb threatening event. This includes time spent evaluating patient, direct bedside care, chart review, placing orders, interpretation of diagnostic studies, discussion with consultants, patient, and/or family members regarding treatment decisions, as well as other required patient management activities. This time is exclusive of all separately billable procedures, and teaching time and separate from and in addition to any other critical care service time. Resident Activity Tracking Resident Involvement: Resident Care Provided Care Provided: Adult Hospital Medicine (1) Acute renal failure Acute renal failure type: unspecified Qualified Code(s): N17.9 - Acute kidney failure, unspecified (2) Leukopenia Leukopenia type: unspecified Qualified Code(s): D72.819 - Decreased white blood cell count, unspecified (3) Neutropenia Neutropenia type: other drug-induced Qualified Code(s): D70.2 - Other drug- induced agranulocytosis (4) Pneumonia Laterality: right Lung location: lower lobe of lung Pneumonia type: due to unspecified organism Qualified Code(s): J18.9 - Pneumonia, unspecified organism
--- NOTE | 2019-02-27 06:50 | XRay Report ---
XR chest 1V portable HISTORY: 78 years-old Female Pneumonia acute shortness of breath COMPARISON: Chest radiograph 02/26/2019 TECHNIQUE: Portable AP view of the chest FINDINGS: Endotracheal tube overlies the midline, 2.6 cm superior to the naomi. Enteric tube distal tip projec ts over the abdominal right upper quadrant in the expected location of the distal gastric lumen/duode nal bulb. Cardiomegaly. No pneumothorax. Small pleural effusions with persistent bibasilar consolidat ion and pulmonary edema. There is no significant change from comparison study. Degenerative changes o f the shoulders and spine. IMPRESSION: 1. Satisfactory positioning of endotracheal tube. 2. Cardiomegaly with resistive pulmonary edema pattern. 3. Small layering pleural effusions with unchanged bibasilar consolidation. ACT 112: Negative or not required by law. The above report was generated using voice recognition software. It may contain grammatical, syntax o r spelling errors. Electronically signed by: Live Magana M.D. 02/27/2019 6:49 AM
[2019-02-27] MEDS ORDERED: INSULIN GLARGINE SOLOSTAR 100 UNITS/ML 3 ML PEN SC SCH (09:05)
--- NOTE | 2019-02-27 09:21 | Hospitalist Progress Note ---
Date of Service February 27, 2019 Assessment & Plan (1) Severe sepsis with acute organ dysfunction: lactic acid coming down to 2.4 no pressors required, still with acute hypoxic respiratory failure MICHELA resolved continue Cefepime and Levaquin blood, urine, bronchial lavage cultures all negative no fever, WBC is 10 Plan is to extubate later today (2) Pneumonia: multifocal pneumonia as above (3) ARDS (adult respiratory distress syndrome): remains intubated today (4) Acute respiratory distress: Currently intubated and sedated in ICU Patient presents with by lateral lower lobe pneumonia Immunosuppressed for rheumatoid arthritis -chronic steroids, Plaquenil,Tocilizumab, and history of methotrexate Elevated lactic acid and neutropenic on admission lactic acid down to 2.4, WBC is 10 continue systemic steroids with Solu-Medrol Continue IV Cefepime and Levaquin no growth on bronchial cultures (5) Elevated lactic acid level: Patient had a lactic acid of 7.6 on admission Improved to 2.4 today Received 3 L of IV fluid on admission Follow serial lactic acid per protocol Blood cultures show no growth at this time Urinalysis negative, urine culture no growth Patient with multifocal pneumonia with immunosuppression will continue cefepime 2 g every 12 hours and Levaquin (6) Abnormal electrocardiogram [ECG] [EKG]: trop peaked at 0.7, trending down. this is demand ischemia (7) Neutropenia: Chronic immunosuppression secondary to rheumatoid arthritis with meds as listed above Neutropenic precautions WBC up to 10 (8) Acute renal failure: Secondary to vomiting and diarrhea for the last 3 days prior to admission Cr down to 0.7 no further fluids, receiving enteral feedings (9) Diabetes mellitus: On Metformin at home HgbA1c at 7.5 Hold Metformin while inpatient and start Novolog SSI monitor for hypoglycemia (10) Long-term use of immunosuppressant medication: Seropositive for RA Follows with Dr. Lester Hold OP prednisone as we will be starting IV methylprednisolone Pain currently under control (11) History of breast cancer: Completed treatment in 2002 No other hx of malignancy No oral medications or suppressive therapy (12) DVT prophylaxis: Enoxaparin at 30 mg daily secondary to decreased creatinine clearance and GFR Subjective 78 yo female remains intubated at this time. D/W nursing staff and japanese tutor, may be extubated later today. Review of Systems Review of Systems: Unobtainable due to endotracheal tube Physical Exam Physical Exam: Constitutional: + ill appearing and + mechanically ventilated; no acute distress Eyes: PERRL, conjunctivae normal, anicteric sclerae Neck: trachea midline, no thyromegaly Respiratory: Auscultation: + crackles (bases) Cardiovascular: Rate/Rhythm: regular rhythm and + tachycardic Heart Sounds: normal S1 and normal S2; no murmur Vessels: no JVD Extremities: normal capillary refill; no edema Gastrointestinal (Abdomen): normal bowel sounds, soft, nontender, no hepatosplenomegaly Musculoskeletal: \no cyanosis or clubbing, extremities motor strength 5/5 Skin: no rashes, warm and dry Neurologic: patellar DTR's 2+ bilat, sensation intact and PERRL, EOMI, accommodation nl, no face palsy, no dysarthria Psychiatric: Orientation: + not alert (sedated) Lymphatic: no cervical or axillary lymphadenopathy Results & Data Vital Signs (Past 12 Hours) Vital Signs Pulse Resp BP Pulse Ox 02/27/19 07:44 92 H 32 H 94 02/27/19 06:01 94 H 151/85 H 94 02/27/19 05:01 74 133/77 97 02/27/19 05:00 22 02/27/19 04:01 75 133/75 96 02/27/19 03:01 74 128/77 96 02/27/19 02:01 70 111/61 93 02/27/19 02:00 92 H 18 78 L 02/27/19 01:01 88 136/80 93 02/27/19 00:01 69 124/73 96 02/27/19 00:00 73 02/26/19 23:27 74 22 96 02/26/19 23:01 74 133/74 96 02/26/19 22:10 74 96 02/26/19 22:01 69 119/67 95 02/26/19 22:00 69 95 02/26/19 21:50 72 97 02/26/19 21:40 78 97 02/26/19 21:30 70 95 PG Care Time/CCT Total # of Minutes Spent Total Time Spent with Patient: Total time spent is greater than 50% in coordination of care (as documented) at patient's floor/unit and/or counseling patient: (1) Acute renal failure Acute renal failure type: unspecified Qualified Code(s): N17.9 - Acute kidney failure, unspecified (2) Neutropenia Neutropenia type: other drug-induced Qualified Code(s): D70.2 - Other drug- induced agranulocytosis (3) Pneumonia Laterality: right Lung location: lower lobe of lung Pneumonia type: due to unspecified organism Qualified Code(s): J18.9 - Pneumonia, unspecified organism
[2019-02-27] MEDS: HEPARIN SOD 5,000 UNIT/0.5 ML VIAL SQ SCH ×2 (09:34→21:31)
[2019-02-27] MEDS: FUROSEMIDE 40 MG TAB PO SCH ×2 (09:34→16:31)
[2019-02-27] MEDS: FAMOTIDINE 20 MG in SYRINGE 3 ML IV SCH (09:35)
[2019-02-27] MEDS: OSELTAMIVIR PHOSPHATE SUSP 30 MG/5 ML UDP PO SCH ×2 (09:35→21:32)
[2019-02-27] MEDS ORDERED: OPTIRAY 320 125ml IV PRN (11:08)
--- NOTE | 2019-02-27 11:27 | CT Scan Report ---
CT ANGIOGRAPHY OF THE CHEST, PULMONARY EMBOLUS PROTOCOL CLINICAL HISTORY: Respiratory distress. Evaluate for pulmonary embolus. COMPARISON STUDY: Chest CT July 03, 2016. Chest radiograph February 27, 2019. TECHNIQUE: Following IV administration of 119 mL of Optiray-320, helical axial images of the chest we re obtained utilizing the pulmonary embolus protocol. Maximal intensity projections and sagittal and coronal reformats were viewed on an independent 3D workstation. IV contrast was administered withou t complication. Automated exposure control was utilized for the study. A dose lowering technique wa s utilized adhering to the principles of ALARA. CT DOSE: 562.58 mGy.cm FINDINGS: No pulmonary emboli are identified. There is no thoracic aortic dissection. No enlarged th oracic lymph nodes are present. The heart is mildly enlarged. The tip of the endotracheal tube 9 mm a afshan the naomi. The tip of the nasogastric tube is at the pylorus. There is no pneumothorax. There a re trace bilateral pleural effusions. Extensive bilateral consolidation is noted. This is most conflu ent within the right lower lobe. There is no cavitation. Central airways are patent. There is no cent ral obstructing mass. No suspicious osseous lesion within the bony thorax is noted. Upper abdomen is unremarkable. IMPRESSION: 1. No pulmonary emboli identified. 2. Extensive bilateral consolidation. The findings suggest pneumonia. Pulmonary edema or pulmonary he morrhage could appear similar. 3. Trace bilateral pleural effusions. 4. Tip of endotracheal tube 9 mm above the naomi. Tip of nasogastric tube projects over the pylorus. ACT 112: Negative or not required by law. Electronically signed by: Ras Henderson M.D. 02/27/2019 11:25 AM
[2019-02-27] MEDS: LEVOFLOXACIN/D5W 750 MG/150 ML BAG IV SCH (13:55)
--- NOTE | 2019-02-27 14:11 | Pharmacy Report ---
Pharmacy Glycemic Short Note 2 - Date of Service February 27, 2019 - Glycemic Short BSG Results (Last 24 hours): 02/26/19 02/26/19 02/26/19 16:15 20:07 23:49 Glucose POC Glucose 207 H 191 H 233 H 02/27/19 02/27/19 02/27/19 00:23 04:05 04:32 Glucose 256 H 238 H POC Glucose 237 H 02/27/19 02/27/19 09:31 12:31 Glucose POC Glucose 161 H 157 H Outpatient Anti-diabetic Regimen: * Metformin 1000 mg po BID * A1c = 7.5 % on 02/06/19 Risk Factors for Insulin Resistance: * Steroids: methylprednisolone 40 mg IV q8h * Infection: on cefepime, oseltamivir * Diet: Impact @ 20 mL/hr (goal 60 mL/hr) * Intubation ASSESSMENT: 02/27 * BSGs trended up at tube feed goal, this morning BSGs in 200s, gave additional dose of lantus this AM * Tube feed then held for study, BSG improved 161 * Will consider novolog adjustment if BSG trend up once tube feeds started again 02/25 * 78 yo F with well-controlled T2DM on one oral antihyperglycemic agent as outpatient admitted with hypoxia and started on steroids and antibiotics * Patient is now also intubated and tubefeeds are being intitiated * BSG's increased yesterday evening 2nd steroids but responded to initiation of Lantus last night * Will continue Novolog at current parameters, adding in coverage for CHO in tubefeeds * Will continue Lantus and increase dose if BSG >180 mg/dL at bedtime again PLAN FOR INPATIENT GLYCEMIC CONTROL: * Holding outpatient oral diabetes medications * Basal insulin: Lantus SQ HS based on BSG * 10 units for BSG less than 180 mg/dL * 20 units for BSG 180 mg/dL or greater * Bolus insulin * NovoLog per scale ACHS or Q6hrs while NPO * Goal Range: Low 120 mg/dL - High 160 mg/dL * Correction Factor: 30 mg/dL/unit * Nutritional / Prandial insulin per carb ratio of 1 unit per 7 grams CHO consumed (or administered in tubefeeds)
[2019-02-27] MEDS: MIDAZOLAM HCL 125 MG/250 ML BAG IV SCH (17:42)
[2019-02-27] MEDS: INSULIN GLARGINE SOLOSTAR 100 UNITS/ML 3 ML PEN SC SCH (21:28)
[2019-02-28] MEDS: INSULIN ASPART 100 UNITS/ML 3 ML PEN SC SCH ×6 (00:10→21:23)
[2019-02-28] MEDS: ASCORBIC ACID 1,500 MG, THIAMINE HCL 100 MG in 0.9 % SODIUM CHLORIDE 100 ML IV SCH ×3 (00:12→12:20)
[2019-02-28] MEDS: fentaNYL citrate 100 MCG/2 ML VIAL IV PRN ×3 (01:11→09:00)
[2019-02-28] MEDS: CEFEPIME 2,000 MG in SYRINGE 7.5 ML IV SCH ×2 (01:12→14:23)
[2019-02-28 04:46] LABS: Basophils # (auto) 0.01 K/uL (0-0.2); Basophils % (auto) 0.1 %; Hematocrit (blood only) 36.5 % (37-47); Hemoglobin 12.6 g/dL (12.0-16.0); Immature Granulocytes % (auto) 3.5 %; Lymphocytes # (auto) 1.18 K/uL (1.2-3.4); Lymphocytes % (auto) 10.2 %; Mean Corpuscular Hemoglobin 32.2 pg (25-34); Mean Corpuscular Hgb Conc 34.5 g/dL (32-36); Mean Corpuscular Volume 93.4 fL (80-100); Mean Platelet Volume 9.2 fL (7.4-10.4); Monocytes # (auto) 1.28 K/uL (0.11-0.59); Monocytes % (auto) 11.1 %; Neutrophils # (auto) 8.69 K/uL (1.4-6.5); Neutrophils % (auto) 75.1 %; Platelet Count 130 K/uL (130-400); RDW Coefficient of Variation 13.9 % (11.5-14.5); RDW Standard Deviation 47.7 fL (36.4-46.3); Red Blood Count 3.91 M/uL (4.2-5.4); White Blood Count 11.56 K/uL (4.8-10.8)
[2019-02-28 05:04] LABS: Potassium 3.2 mmol/L (3.5-5.1)
[2019-02-28 05:05] LABS: BUN Creatinine Ratio 43.8 (10-20); Calcium 8.1 mg/dl (8.5-10.1); Creatinine Clr Calc Pharmacy 55.7 ml/min; Est GFR (African American) 89.7; Est GFR (Non-African American) 77.4; Magnesium 1.7 mg/dl (1.8-2.4); Phosphorus 2.8 mg/dl (2.5-4.9)
[2019-02-28] MEDS ORDERED: POTASSIUM CHLORIDE 20 MEQ/15 ML UDC PO STA (05:14)
[2019-02-28 05:22] LABS: iSTAT Arterial Blood Gas HCO3 32 meg/L (19-24); iSTAT Arterial Blood Gas pCO2 39 mmHg (35-46); iSTAT Arterial Blood Gas pH 7.53 (7.35-7.45); iSTAT Arterial Blood Gas pO2 69 mmHg (80-95); iSTAT Carbon Dioxide 33 mEq/l (24-31); iSTAT Site Art Line
[2019-02-28] MEDS: MAGNESIUM SULFATE / D5W 1 GM/100 ML BAG IV SCH ×2 (05:25→06:25)
[2019-02-28] MEDS: methylPREDNISolone 40 MG in SYRINGE 0 ML IV SCH ×2 (06:23→18:48)
--- NOTE | 2019-02-28 06:23 | Critical Care Progress Note ---
Date of Service February 28, 2019 Assessment & Plan (1) Severe sepsis with acute organ dysfunction: Reason Critically Ill: 78-year-old female with acute hypoxic respiratory failure requiring intubation mechanical ventilation and acute respiratory distress syndrome in the setting of pneumonia and severe sepsis. PLAN: Neuro: Patient off sedation, awake and oriented, still tired Resp: Extubated today Multilobar pneumonia -Cefepime 2 g every 12 -Levaquin 750 mg received in ED -Possible prolonged QTC in the setting of sinus tachycardia -Daily EKG, patient unable to tolerate Levaquin would consider doxycycline for atypical coverage QTc interval improved. -MRSA nasal swab negative CTA 02/27 showing extensive pulmonary edema, lasix forty mg BID diuresed 3.5 L Holding lasix today Tachycardia -In prior records report of tachycardia prior to surgical procedures -Routine echo with moderate mitral regurgitation -Troponins peaked at .7 likely demand ischemia from her sepsis -TSH normal Fluids/Renal: Acute kidney injury: Improved -Converted from normal saline to vitamin C and thiamine -UA without clear signs of infection, will await culture as well Lactic acidosis -REsolved to 2.4 Hypokalemia hypomagnesemia -Replete PRN ID: Severe sepsis with multisystem organ dysfunction -Empiric pulmonary coverage levaquin cefepime -Viral studies still pending. Repeat rapid flu negative Blood culture NGTD WBC remains elevated, likely combination of infection and steroids GI/Nutrition: NPO patient intubated for 3-4 days will need speech evaluation prior to resuming diet DVT prophylaxis: Heparin 5000 twice daily Endocrine: ICU hyperglycemia protocol TSH normal Solu-Medrol -40 mg IV every 8 Vascular access: Left arterial line, peripheral IVs -Patient consented for central line, intubation, bronchoscopy, arterial line Code Status: Full (2) ARDS (adult respiratory distress syndrome): (3) Acute respiratory failure with hypoxemia: (4) Abnormal electrocardiogram [ECG] [EKG]: (5) DVT prophylaxis: (6) Elevated lactic acid level: (7) History of breast cancer: (8) Neutropenia: (9) Acute renal failure: (10) Acute respiratory distress: (11) Pneumonia: (12) Hypoxia: (13) Leukopenia: (14) Anxiety: (15) Chronic back pain: (16) Depression: (17) Diabetes mellitus: (18) Hypercholesterolemia: Supervising Physician Co-Signing Physician Notes Dr. Bui was resident physician during care of patient. I separately evaluated patient for meng portions of the history and the exam. I was present during the critical portion of medical decision making, and I discussed the case with the resident. I generally agree with the findings and plan. Patient was discussed in multidisciplinary rounds. I also discussed the patient with Dr. Denise. Dr. Denise reports that she had an episode of pulmonary injury likely due to methotrexate therapy. This may be predisposing the patient to some aspect of an intrinsic lung disease and decreased lung compliance. Despite this the patient has been steadily weaned from SIMV is currently tolerating pressure support ventilation. Today her rapid shallow breathing index is approximately 80, she has a tidal volume of approximately 350 and she is breathing at 7 L a minute. We will extubate to noninvasive ventilator support and wean as tolerated. She is also have a known history of anxiety, to help facilitate noninvasive ventilation we will start a Precedex infusion and discontinue the Versed and fentanyl. Clinical update: Patient was successfully extubated, we were able to wean the noninvasive ventilator off and have discontinued the Precedex infusion. At this time I would keep the patient n.p.o., she was given supplemental nutritional support while she was intubated. Given her length of intubation I feel she is appropriate for a speech evaluation prior to initiation of oral medications. I feel the potential for aspiration and subsequent reintubation would be high. Subjective Ms. Erickson remains intubated this morning, on CPAP trial on vent. Patient occasionally wakes up and becomes agitated and has attempted to pull her tube out requiring restraints on upper limbs. Review of Systems Review of Systems: All systems reviewed & are unremarkable except as noted in HPI & below Physical Exam Physical Exam: Constitutional: Ms. Erickson is lying in bed, continues to be intubated and sedated, awakens to voice but gets agitated Eyes: PERRLA, Respiratory: Lung sounds clear, no crackles, wheezes, rhonci Cardiovascular: Heart sounds dual, no murmurs rubs, skips or gallops, peripheral pulses intact, mild bilateral pitting edema lower extremity. GI: Abdomen soft, nontender, no masses Skin: Warm dry no rashes Results & Data Vital Signs (Past 12 Hours) Vital Signs Pulse Resp BP Pulse Ox 02/28/19 05:34 80 20 95 02/28/19 05:02 58 L 122/60 95 02/28/19 04:02 59 L 116/58 L 95 02/28/19 03:02 64 124/54 L 95 02/28/19 02:02 61 103/56 L 94 02/28/19 01:35 63 18 95 02/28/19 01:02 85 134/68 93 02/28/19 00:02 62 137/62 90 02/28/19 00:00 66 02/27/19 23:02 64 128/56 L 90 02/27/19 23:00 63 89 L 02/27/19 22:03 60 92 02/27/19 22:02 63 129/68 91 02/27/19 22:00 64 91 02/27/19 21:30 81 93 02/27/19 21:02 80 139/74 90 02/27/19 21:00 85 89 L 02/27/19 20:30 63 18 91 02/27/19 20:02 64 104/54 L 94 02/27/19 20:00 67 92 02/27/19 19:30 61 100 02/27/19 19:15 64 18 100 02/27/19 19:03 63 97 02/27/19 19:02 62 125/62 98 02/27/19 19:00 62 99 Critical Care Time Critical Care Time: Yes Total Critical Care Time: 50 I have personally spent 50 minutes of critical care time in the direct management of this patient. This is a life/limb threatening event. This includes time spent evaluating patient, direct bedside care, chart review, placing orders, interpretation of diagnostic studies, discussion with consultants, patient, and/or family members regarding treatment decisions, as well as other required patient management activities. This time is exclusive of all separately billable procedures, and teaching time and separate from and in addition to any other critical care service time. Resident Activity Tracking Resident Involvement: Resident Care Provided Care Provided: Adult Hospital Medicine (1) Neutropenia Neutropenia type: other drug-induced Qualified Code(s): D70.2 - Other drug- induced agranulocytosis (2) Acute renal failure Acute renal failure type: unspecified Qualified Code(s): N17.9 - Acute kidney failure, unspecified (3) Pneumonia Laterality: right Lung location: lower lobe of lung Pneumonia type: due to unspecified organism Qualified Code(s): J18.9 - Pneumonia, unspecified organism (4) Leukopenia Leukopenia type: unspecified Qualified Code(s): D72.819 - Decreased white blood cell count, unspecified
[2019-02-28] MEDS ORDERED: INSULIN GLARGINE SOLOSTAR 100 UNITS/ML 3 ML PEN SC SCH ×2 (08:00)
[2019-02-28] MEDS: HEPARIN SOD 5,000 UNIT/0.5 ML VIAL SQ SCH ×2 (09:09→21:28)
[2019-02-28] MEDS: FAMOTIDINE 20 MG in SYRINGE 3 ML IV SCH (09:10)
[2019-02-28] MEDS: FUROSEMIDE 40 MG TAB PO SCH (09:11)
[2019-02-28] MEDS: OSELTAMIVIR PHOSPHATE SUSP 30 MG/5 ML UDP PO SCH ×2 (09:12→21:28)
[2019-02-28] MEDS ORDERED: acetaZOLAMIDE 500 MG in SYRINGE 0 ML IV ONE (09:45)
[2019-02-28] MEDS: DEXMEDETOMIDINE HCL 200 MCG in SODIUM CHLORIDE 0.9% 48 ML IV SCH ×2 (10:48→19:52)
--- NOTE | 2019-02-28 10:51 | XRay Report ---
XR chest 1V portable HISTORY: 78 years-old Female Hypoxemic respiratory failure intubated acute respiratory failure COMPARISON: CTA chest and chest radiograph 02/27/2019 TECHNIQUE: Portable AP view of the chest FINDINGS: Endotracheal tube overlies the midline, 2.4 cm superior to the naomi. Enteric tube distal tip projec ts over the expected location of the distal gastric lumen. Cardiac silhouette is enlarged, unchanged. Persistent pulmonary edema with small pleural effusions and bibasilar consolidation. Mildly improved aeration of the upper lung zones. Bones are grossly intact. IMPRESSION: 1. Cardiomegaly with persistent pulmonary edema pattern. 2. Mildly improved aeration of the bilateral lungs. 3. Small pleural effusions. 4. Stable positioning of endotracheal tube. ACT 112: Negative or not required by law. The above report was generated using voice recognition software. It may contain grammatical, syntax o r spelling errors. Electronically signed by: Live Magana M.D. 02/28/2019 10:49 AM
[2019-02-28] MEDS: MIDAZOLAM HCL 125 MG/250 ML BAG IV SCH (12:19)
[2019-02-28] MEDS: LEVOFLOXACIN/D5W 750 MG/150 ML BAG IV SCH (12:19)
[2019-02-28 12:32] LABS: CMV DNA Qnt Real Time PCR <200 IU/mL (<200); CMV DNA Quant PCR <2.30 log IU/mL (<2.30)
[2019-02-28 15:12] LABS: HSV Type 1 DNA Not Detected (Not Detected); HSV Type 2 DNA Not Detected (Not Detected)
--- NOTE | 2019-02-28 15:21 | Pharmacy Report ---
Pharmacy Glycemic Short Note 2 - Date of Service February 28, 2019 - Glycemic Short BSG Results (Last 24 hours): 02/27/19 02/27/19 02/28/19 16:28 21:28 00:08 Glucose POC Glucose 189 H 208 H 229 H 02/28/19 02/28/19 02/28/19 03:59 04:34 09:06 Glucose 210 H POC Glucose 197 H 177 H 02/28/19 12:34 Glucose POC Glucose 126 H Outpatient Anti-diabetic Regimen: * Metformin 1000 mg po BID * A1c = 7.5 % on 02/06/19 Risk Factors for Insulin Resistance: * Steroids: methylprednisolone 40 mg IV q12h * Infection: on cefepime, levofloxacin oseltamivir * Diet: Impact @ 20 mL/hr (goal 60 mL/hr)- held * Extubated 02/28 ASSESSMENT: 02/28 * Patient received 71 units of insulin yesterday with BSGs ranging from 161-237, received 30 units of basal and 41 units for correction/tube feed coverage * Patient was extubated this AM and tube feeds placed on hold, patient is currently NPO, steroids continue at solu-medrol 40 q12H * Carb ratio was tightened to 6 yesterday evening and bsgs improved with this change, lunch BSG within range although patient not currently receiving tube feed/diet * Currently scale on for this evening, reduced slightly as uncertain of patient intake / * BSGs trended up at tube feed goal, this morning BSGs in 200s, gave additional dose of lantus this AM * Tube feed then held for study, BSG improved 161 * Will consider novolog adjustment if BSG trend up once tube feeds started again 02/25 * 78 yo F with well-controlled T2DM on one oral antihyperglycemic agent as outpatient admitted with hypoxia and started on steroids and antibiotics * Patient is now also intubated and tubefeeds are being intitiated * BSG's increased yesterday evening 2nd steroids but responded to initiation of Lantus last night * Will continue Novolog at current parameters, adding in coverage for CHO in tubefeeds * Will continue Lantus and increase dose if BSG >180 mg/dL at bedtime again PLAN FOR INPATIENT GLYCEMIC CONTROL: * Holding outpatient oral diabetes medications * Basal insulin: 12 units qam * Lantus SQ HS based on BSG * 12 units for BSG less than 180 mg/dL * 15 units for BSG 180 mg/dL or greater * Bolus insulin * NovoLog per scale ACHS or Q6hrs while NPO * Goal Range: Low 120 mg/dL - High 160 mg/dL * Correction Factor: 20 mg/dL/unit * Nutritional / Prandial insulin per carb ratio of 1 unit per 7 grams CHO consumed (or administered in tubefeeds)
[2019-02-28 18:27] LABS: Fungitell (1-3)-B-D-Glucan <31
--- NOTE | 2019-02-28 18:33 | Procedure Note ---
Procedure Note Date of Service February 24, 2019 Procedure Date: Noted above Critical Care Medicine Point of Care Bedside Ultrasound Procedure: Limited Bedside Lung Ultrasound Indication: Hypoxic respiratory failure, acute respiratory distress syndrome Attending: Betty Guthrie DO Resident/Physician Flue Cleaner: Dr. Bui Organs Examined: Lung BLUE point (upper), BLUE point (lower), Phrenic Point (axillary), PLAPS point (posterior) A lines visualized: Absent, Hemithorax: Bilateral B lines visualized: Present, Hemithorax: Bilateral all lung rodgers Lung Sliding: Present, Hemithorax: Bilateral Tissue-like Sign: Present, Hemithorax: Bilateral lower posterior lung rodgers Shred Sign: Absent, Hemithorax: Bilateral Quad Sign: Present, Hemithorax: Trace lower right lung field Sinusoid Sign: Absent, Hemithorax: Bilateral Type of effusions: Small simple appearing pleural effusion: Trace, Hemithorax: Right posterior lobe Interpleural distance: Not applicable Impression: Type B profile through all lung rodgers with small trace pleural effusion on right side. Images obtained are saved for permanent record Coding CPT Codes Pulmonary/Thoracic - Pulmonary and Thoracic: 80186 US, Chest, real time with imaging documentation ([id number])
--- NOTE | 2019-02-28 18:44 | Billing Data ---
Date of Service February 28, 2019 Coding Level of Care Code Critical Care 1st - mins
--- NOTE | 2019-02-28 18:45 | Billing Data ---
Date of Service February 25, 2019 Coding Level of Care Code Critical Care mins
--- NOTE | 2019-02-28 18:45 | Billing Data ---
Date of Service February 26, 2019 Coding Level of Care Code Critical Care mins
--- NOTE | 2019-02-28 18:45 | Billing Data ---
Date of Service February 27, 2019 Coding Level of Care Code Critical Care 1st - mins
[2019-02-28] MEDS: INSULIN GLARGINE SOLOSTAR 100 UNITS/ML 3 ML PEN SC SCH (21:25)
[2019-02-28] MEDS ORDERED: LORazepam 0.5 MG/1 ML VIAL IV STA (22:20)
--- NOTE | 2019-02-28 22:39 | Hospitalist Progress Note ---
Date of Service February 28, 2019 Assessment & Plan (1) Severe sepsis with acute organ dysfunction: lactic acid coming down to 2.4 no pressors required, still with acute hypoxic respiratory failure MICHELA resolved continue Cefepime and Levaquin blood, urine, bronchial lavage cultures all negative no fever, WBC is 11 Patient was not extubated on 02/27; appears likely patient will be extubated today on 02/28. (2) Pneumonia: multifocal pneumonia as above (3) ARDS (adult respiratory distress syndrome): remains intubated today (4) Acute respiratory distress: Currently intubated and sedated in ICU Patient presents with by lateral lower lobe pneumonia Immunosuppressed for rheumatoid arthritis -chronic steroids, Plaquenil,Tocilizumab, and history of methotrexate Elevated lactic acid and neutropenic on admission lactic acid down to 2.4, WBC is 11 continue systemic steroids with Solu-Medrol Continue IV Cefepime and Levaquin no growth on bronchial cultures (5) Elevated lactic acid level: Patient had a lactic acid of 7.6 on admission Improved to 2.4 today Received 3 L of IV fluid on admission Follow serial lactic acid per protocol Blood cultures show no growth at this time Urinalysis negative, urine culture no growth Patient with multifocal pneumonia with immunosuppression will continue cefepime 2 g every 12 hours and Levaquin (6) Abnormal electrocardiogram [ECG] [EKG]: trop peaked at 0.7, trending down. this is demand ischemia (7) Neutropenia: Chronic immunosuppression secondary to rheumatoid arthritis with meds as listed above Neutropenic precautions WBC up to 11 (8) Acute renal failure: Secondary to vomiting and diarrhea for the last 3 days prior to admission Cr down to 0.7 no further fluids, receiving enteral feedings (9) Diabetes mellitus: On Metformin at home HgbA1c at 7.5 Hold Metformin while inpatient and start Novolog SSI monitor for hypoglycemia (10) Long-term use of immunosuppressant medication: Seropositive for RA Follows with Dr. Lester Hold OP prednisone as we will be starting IV methylprednisolone Pain currently under control (11) History of breast cancer: Completed treatment in 2002 No other hx of malignancy No oral medications or suppressive therapy (12) DVT prophylaxis: Enoxaparin at 30 mg daily secondary to decreased creatinine clearance and GFR Subjective Patient remains intubated. Review of Systems Review of Systems: Unobtainable due to endotracheal tube Physical Exam Physical Exam: Constitutional: + mechanically ventilated; no acute distress Eyes: PERRL, conjunctivae normal, anicteric sclerae Neck: trachea midline, no thyromegaly Respiratory: Auscultation: + crackles (bases) Cardiovascular: Rate/Rhythm: regular rhythm and + tachycardic Heart Sounds: normal S1 and normal S2; no murmur Vessels: no JVD Extremities: normal c apillary refill; no edema Gastrointestinal (Abdomen): normal bowel sounds, soft, nontender, no hepatosplenomegaly Musculoskeletal: no cyanosis or clubbing Skin: no rashes, warm and dry Neurologic: patellar DTR's 2+ bilat, sensation intact and PERRL, EOMI, accommodation nl, no face palsy, no dysarthria Psychiatric: Orientation: + alert Lymphatic: no cervical or axillary lymphadenopathy Results & Data Vital Signs (Past 12 Hours) Vital Signs Pulse Resp BP Pulse Ox 02/28/19 18:00 75 22 95 02/28/19 17:32 71 24 130/71 92 02/28/19 16:32 68 20 145/86 H 94 02/28/19 15:32 68 24 128/76 96 02/28/19 14:32 61 27 H 142/79 H 96 02/28/19 13:31 60 22 140/69 95 02/28/19 13:03 75 22 96 02/28/19 12:02 83 24 115/69 95 02/28/19 11:52 85 31 H 95 02/28/19 11:40 85 95 02/28/19 11:02 103 H 122/68 91 02/28/19 11:00 101 H 92 PG Care Time/CCT Total # of Minutes Spent Total Time Spent with Patient: Total time spent is greater than 50% in coordination of care (as documented) at patient's floor/unit and/or counseling patient: (1) Acute renal failure Acute renal failure type: unspecified Qualified Code(s): N17.9 - Acute kidney failure, unspecified (2) Neutropenia Neutropenia type: other drug-induced Qualified Code(s): D70.2 - Other drug- induced agranulocytosis (3) Pneumonia Laterality: right Lung location: lower lobe of lung Pneumonia type: due to unspecified organism Qualified Code(s): J18.9 - Pneumonia, unspecified organism
[2019-03-01] MEDS: INSULIN ASPART 100 UNITS/ML 3 ML PEN SC SCH ×6 (00:42→20:44)
[2019-03-01] MEDS ORDERED: MoRPHine SULFATE 2 MG/ML CARP IV STA (00:45)
[2019-03-01] MEDS: CEFEPIME 2,000 MG in SYRINGE 7.5 ML IV SCH ×2 (00:54→13:23)
[2019-03-01 05:02] LABS: Hematocrit (blood only) 39.7 % (37-47); Hemoglobin 13.3 g/dL (12.0-16.0); Mean Corpuscular Hemoglobin 32.1 pg (25-34); Mean Corpuscular Hgb Conc 33.5 g/dL (32-36); Mean Corpuscular Volume 95.9 fL (80-100); Mean Platelet Volume 9.1 fL (7.4-10.4); Platelet Count 160 K/uL (130-400); RDW Coefficient of Variation 13.7 % (11.5-14.5); RDW Standard Deviation 47.9 fL (36.4-46.3); Red Blood Count 4.14 M/uL (4.2-5.4); White Blood Count 18.75 K/uL (4.8-10.8)
[2019-03-01 05:29] LABS: Basophils # (auto) 0.04 K/uL (0-0.2); Basophils % (auto) 0.2 %; Eosinophils # (auto) 0.01 K/uL (0-0.5); Eosinophils % (auto) 0.1 %; Immature Granulocytes # (auto) 1.02 K/uL (0.00-0.02); Immature Granulocytes % (auto) 5.4 %; Lymphocytes # (auto) 1.99 K/uL (1.2-3.4); Lymphocytes % (auto) 10.6 %; Monocytes # (auto) 1.54 K/uL (0.11-0.59); Monocytes % (auto) 8.2 %; Neutrophils # (auto) 14.15 K/uL (1.4-6.5); Neutrophils % (auto) 75.5 %; RBC Morphology Unremarkable
[2019-03-01] MEDS ORDERED: ACETAMINOPHEN 1,000 MG/100 ML VIAL IV STA (05:29)
[2019-03-01 05:32] LABS: BUN Creatinine Ratio 50.9 (10-20); Calcium 8.4 mg/dl (8.5-10.1); Creatinine Clr Calc Pharmacy 60.4 ml/min; Est GFR (African American) 98.5; Phosphorus 4.5 mg/dl (2.5-4.9); Potassium 3.7 mmol/L (3.5-5.1)
[2019-03-01] MEDS ORDERED: POTASSIUM CHLORIDE / WTR 10 MEQ/100 ML PLCT IV ONE (05:35)
[2019-03-01] MEDS: methylPREDNISolone 40 MG in SYRINGE 0 ML IV SCH (06:01)
--- NOTE | 2019-03-01 06:36 | Critical Care Progress Note ---
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 Cardiovascular -Routine echo with moderate mitral regurgitation -Troponins peaked at .7 likely demand ischemia from her sepsis -TSH normal Fluids/Renal: Acute kidney injury: Improved -Converted from normal saline to vitamin C and thiamine -UA without clear signs of infection, will await culture as well Lactic acidosis -REsolved Hypokalemia hypomagnesemia -Replete PRN ID: Severe sepsis with multisystem organ dysfunction -Empiric pulmonary coverage levaquin cefepime Repeat rapid flu negative Blood culture negative WBC elevated, likely combination of infection and steroids No fevers, no increased work of breathing. GI/Nutrition: NPO patient intubated for 3-4 days will need speech evaluation prior to resuming diet DVT prophylaxis: Heparin 5000 twice daily Endocrine: ICU hyperglycemia protocol TSH normal Solu-Medrol -40 mg IV every 8 Vascular access: Left arterial line, peripheral IVs -Patient consented for central line, intubation, bronchoscopy, arterial line Code Status: Full (2) ARDS (adult respiratory distress syndrome): (3) Acute respiratory failure with hypoxemia: (4) Abnormal electrocardiogram [ECG] [EKG]: (5) DVT prophylaxis: (6) Elevated lactic acid level: (7) History of breast cancer: (8) Neutropenia: (9) Acute renal failure: (10) Acute respiratory distress: (11) Pneumonia: (12) Hypoxia: (13) Leukopenia: (14) Anxiety: (15) Chronic back pain: (16) Depression: (17) Diabetes mellitus: (18) Hypercholesterolemia: Supervising Physician Co-Signing Physician Notes Dr. Bui was resident physician during care of patient. I separately evaluated patient for meng portions of the history and the exam. I was present during the critical portion of medical decision making, and I discussed the case with the resident. I generally agree with the findings and plan. Patient was successfully extubated yesterday has had a speech consult and is written for pured diet. There is no growth of the patient's blood cultures nor BAL specimens at this time. I think it is prudent to discontinue the Tamiflu after 5 days of treatment therapy as well as discontinue the antibiotics after 7 days given the lack of growth however I would empirically finish the treatment course given the severity of her hypoxia. As we are moving into the convalescent phase I will order PT and OT get her up out of chair and continue to normalize the patient. I think she is stable for downgrade out of the ICU at this time. Given the history of possible methotrexate toxicity and the uniqueness of her hypoxia she may benefit from follow-up with pulmonary for possible evaluation of some underlying interstitial lung disease or at least formal spirometry. I have discontinued her Pepcid as she is no longer ventilated and eating, inserted a steroid taper of prednisone. Subjective Ms. Erickson is doing alright this morning, per nursing she was slightly anxious overnight and does not tolerate being on BiPap very well but said that she was not getting enough oxygen on oxymask though her saturations were lamar. Patient told me she had some leg pain overnight, on examination today she is pain free, no swelling of leg and mildlly reproducible with abbreviated hip exam. Denies, chest pain, palpitations, Belly pain, nausea, vomiting, diarrhea, patient is constipated and has not had a bowel movement in 5-6 days. Currently NPO awaiting speech evaluation for prolonged intubation. Review of Systems Review of Systems: All systems reviewed & are unremarkable except as noted in HPI & below Physical Exam Physical Exam: Constitutional: Well appearing 78 year old woman on oxymask, in no apparent distress Respiratory: subtle rales bilateral lung bases, no increased work of breathing, chest expansion symmetric Cardiovascular: Heart sounds dual, no murmurs rubs skips or gallops, peripheral pulses intact GI: Abdomen soft nontender Results & Data Vital Signs (Past 12 Hours) Vital Signs Pulse Resp BP Pulse Ox 03/01/19 05:15 87 33 H 96 03/01/19 04:32 72 22 136/73 98 03/01/19 03:32 68 25 H 131/67 100 03/01/19 02:32 91 H 25 H 134/63 98 03/01/19 01:38 90 28 H 97 03/01/19 01:32 84 36 H 130/75 97 03/01/19 00:32 75 26 H 141/63 H 98 02/28/19 23:32 90 34 H 120/67 95 02/28/19 22:32 80 27 H 125/71 97 02/28/19 22:30 79 22 96 02/28/19 22:00 84 27 H 92 02/28/19 21:32 84 31 H 137/75 94 02/28/19 21:00 85 14 96 02/28/19 20:32 83 18 131/57 L 96 02/28/19 20:00 82 30 H 94 02/28/19 19:32 69 23 139/67 95 02/28/19 19:00 75 23 95 Resident Activity Tracking Resident Involvement: Resident Care Provided Care Provided: Adult Hospital Medicine (1) Acute renal failure Acute renal failure type: unspecified Qualified Code(s): N17.9 - Acute kidney failure, unspecified (2) Leukopenia Leukopenia type: unspecified Qualified Code(s): D72.819 - Decreased white blood cell count, unspecified (3) Neutropenia Neutropenia type: other drug-induced Qualified Code(s): D70.2 - Other drug- induced agranulocytosis (4) Pneumonia Laterality: right Lung location: lower lobe of lung Pneumonia type: due to unspecified organism Qualified Code(s): J18.9 - Pneumonia, unspecified organism
[2019-03-01] MEDS: HEPARIN SOD 5,000 UNIT/0.5 ML VIAL SQ SCH ×2 (09:03→20:43)
[2019-03-01] MEDS: OSELTAMIVIR PHOSPHATE SUSP 30 MG/5 ML UDP PO SCH (09:03)
[2019-03-01] MEDS: FAMOTIDINE 20 MG in SYRINGE 3 ML IV SCH (09:03)
[2019-03-01] MEDS: LEVOFLOXACIN/D5W 750 MG/150 ML BAG IV SCH (10:59)
[2019-03-01] MEDS ORDERED: Nursing to Pharmacy Communication ONE (11:00)
--- NOTE | 2019-03-01 11:10 | Billing Data ---
Date of Service March 01, 2019 Coding Level of Care Code 79356 Subseq Hosp Care Lvl 3
[2019-03-01] MEDS: predniSONE 20 MG TAB PO SCH (12:11)
[2019-03-01] MEDS ORDERED: KETOROLAC TROMETHAMINE 15 MG/ML VIAL IV ONE (12:49)
[2019-03-01] MEDS ORDERED: KETOROLAC TROMETHAMINE 15 MG/ML VIAL ONE (12:54)
[2019-03-01] MEDS: LACTULOSE SYRUP 20 GM/30 ML UDC PO PRN (13:29)
--- NOTE | 2019-03-01 13:51 | Pharmacy Report ---
Pharmacy Glycemic Short Note 2 - Date of Service March 01, 2019 - Glycemic Short BSG Results (Last 24 hours): 02/28/19 02/28/19 03/01/19 16:14 20:43 00:23 Glucose POC Glucose 113 H 82 93 03/01/19 03/01/19 03/01/19 04:37 04:41 07:36 Glucose 86 POC Glucose 80 73 03/01/19 11:29 Glucose POC Glucose 106 H Outpatient Anti-diabetic Regimen: * Metformin 1000 mg po BID * A1c = 7.5 % on 02/06/19 ASSESSMENT: * 78yo T2DM critically ill recovering from severe sepsis and hypoxemic respiratory failure secondary to pneumonia * 02/24/19-02/27/19: Was receiving high dose IV steroids and continuous tube feeds. Pt was requiring 33-71 units of insulin per day depending on tube feeding rate * 02/28/19: Pt extubated & tube feeds held - insulin needs dropped dramatically- BSGs running below goal for critically ill targets * 03/01/19: Diet advanced but pt "taking it slowly" with PO intake. Steroids tapered from Solumedrol 40mg IV Q12hrs to Prednisone 20mg daily. Insulin regimen will need dramatically decreased with this step down in steroid dosing. * NPH insulin is used to counteract the hyperglycemic effect of prednisone. The rationale for this approach is that the pharmacodynamics profile of NPH, with a peak effect of 4-8hrs and duration of action of 12-16hrs, mirrors the pharmacodynamics of prednisone. NPH should be dosed at the same time that prednisone is given * The dose of NPH given is dependent on the steroid dose given * For doses of prednisone 20mg/day NPH dose should be 0.2 units/kg. However, will hold off on prednisone today since BSGs mainly <100 mg/dl and minimal PO intake. Will add Q4hr Novolog instead and start NPH tomorrow once diet fully tolerated. * NPH dosing above is given in addition to patients basal insulin needs * Typically, patients will also need rapid-acting insulin with meals PLAN FOR INPATIENT GLYCEMIC CONTROL: * Holding outpatient oral diabetes medications * Basal insulin: DC Lantus - switch to NPH for once daily prednisone. Will start tomorrow when diet further advanced and BSGs >140 mg/dl * Will start NPH 11 units (0.2 units/kg) for prednisone 20mg PO daily. * Bolus insulin: no changes needed today- continue high stress parameters for steroids and since basal insulin stopped. Will loosen parameters tomorrow. * NovoLog per scale ACHS or Q6hrs while NPO * Goal Range: Low 120 mg/dL - High 160 mg/dL * Correction Factor: 25 mg/dL/unit * Nutritional / Prandial insulin per carb ratio of 1 unit per 8 grams CHO consumed
--- NOTE | 2019-03-01 19:56 | Hospitalist Progress Note ---
Date of Service March 01, 2019 Assessment & Plan (1) Severe sepsis with acute organ dysfunction: lactic acid coming down to 2.4 no pressors required, still with acute hypoxic respiratory failure MICHELA resolved continue Cefepime and Levaquin blood, urine, bronchial lavage cultures all negative no fever, Patient was extubated on 02/28 will transfer out of ICU Awaiting speech eval for PO. (2) Pneumonia: multifocal pneumonia as above (3) ARDS (adult respiratory distress syndrome): resolved. (4) Acute respiratory distress: Currently intubated and sedated in ICU Patient presents with by lateral lower lobe pneumonia Immunosuppressed for rheumatoid arthritis -chronic steroids, Plaquenil,Tocilizumab, and history of methotrexate Elevated lactic acid and neutropenic on admission lactic acid down to 2.4, WBC is 11 continue systemic steroids with Solu-Medrol Continue IV Cefepime and Levaquin no growth on bronchial cultures (5) Elevated lactic acid level: Patient had a lactic acid of 7.6 on admission Improved to 2.4 Blood cultures show no growth at this time Urinalysis negative, urine culture no growth Patient with multifocal pneumonia with immunosuppression will continue cefepime 2 g every 12 hours and Levaquin (6) Abnormal electrocardiogram [ECG] [EKG]: trop peaked at 0.7, trending down. this is demand ischemia (7) Neutropenia: Chronic immunosuppression secondary to rheumatoid arthritis with meds as listed above resolved (8) Acute renal failure: Secondary to vomiting and diarrhea for the last 3 days prior to admission Cr down to 0.7 no further fluids, receiving enteral feedings (9) Diabetes mellitus: On Metformin at home HgbA1c at 7.5 Hold Metformin while inpatient and start Novolog SSI monitor for hypoglycemia (10) Long-term use of immunosuppressant medication: Seropositive for RA Follows with Dr. Lester Hold OP prednisone as we will be starting IV methylprednisolone Pain currently under control (11) History of breast cancer: Completed treatment in 2002 No other hx of malignancy No oral medications or suppressive therapy (12) DVT prophylaxis: Enoxaparin at 30 mg daily secondary to decreased creatinine clearance and GFR will transfer out of ICU Subjective Patient reports still feeling short of breath. Patient reports having constipation and no BM since prior to intubation. Patient also reports feeling hungry. Review of Systems Review of Systems: All systems reviewed & are unremarkable except as noted in HPI & below Physical Exam Physical Exam: Constitutional: ; no acute distress Eyes: PERRL, conjunctivae normal, anicteric sclerae Neck: trachea midline, no thyromegaly Respiratory: Auscultation: + crackles (bases) Cardiovascular: Rate/Rhythm: regular rhythm and + tachycardic Heart Sounds: normal S1 and normal S2; no murmur Vessels: no JVD Extremities: normal capillary refill; no edema Gastrointestinal (Abdomen): normal bowel sounds, soft, nontender, no hepatosplenomegaly Musculoskeletal: no cyanosis or clubbing Skin: no rashes, warm and dry Neurologic: patellar DTR's 2+ bilat, sensation intact and PERRL, EOMI, accommodation nl, no face palsy, no dysarthria Psychiatric: Orientation: + alert Lymphatic: no cervical or axillary lymphadenopathy Results & Data Vital Signs (Past 12 Hours) Vital Signs Temp Pulse Resp BP Pulse Ox 03/01/19 16:27 97 H 160/96 H 97 03/01/19 16:18 92 H 14 171/98 H 96 03/01/19 16:00 36.7 C 89 25 H 171/98 H 97 03/01/19 12:00 108 H 23 91 03/01/19 11:48 101 H 15 134/75 92 03/01/19 10:48 102 H 19 111/63 94 03/01/19 09:48 95 H 29 H 122/57 L 95 03/01/19 08:48 77 21 141/55 H 97 PG Care Time/CCT Total # of Minutes Spent Total Time Spent with Patient: Total time spent is greater than 50% in coordination of care (as documented) at patient's floor/unit and/or counseling patient: (1) Acute renal failure Acute renal failure type: unspecified Qualified Code(s): N17.9 - Acute kidney failure, unspecified (2) Neutropenia Neutropenia type: other drug-induced Qualified Code(s): D70.2 - Other drug- induced agranulocytosis (3) Pneumonia Laterality: right Lung location: lower lobe of lung Pneumonia type: due to u nspecified organism Qualified Code(s): J18.9 - Pneumonia, unspecified organism
[2019-03-01] MEDS ORDERED: LORazepam 0.5 MG/1 ML VIAL IV STA (20:04)
[2019-03-01] MEDS ORDERED: COUGH DROP (SUGAR FREE) LOZ 24 LOZ/1 BOX BUCCAL STA (20:19)
[2019-03-01] MEDS ORDERED: COUGH DROP (SUGAR FREE) LOZ 24 LOZ/1 BOX BUCCAL ONE (20:22)
[2019-03-02] MEDS: INSULIN ASPART 100 UNITS/ML 3 ML PEN SC SCH ×6 (01:11→20:54)
[2019-03-02] MEDS: CEFEPIME 2,000 MG in SYRINGE 7.5 ML IV SCH ×2 (03:15→14:00)
[2019-03-02 04:43] LABS: Hemoglobin 13.2 g/dL (12.0-16.0); Mean Corpuscular Hgb Conc 33.8 g/dL (32-36); Mean Corpuscular Volume 94.4 fL (80-100); Mean Platelet Volume 9.3 fL (7.4-10.4); Platelet Count 170 K/uL (130-400); RDW Standard Deviation 48.3 fL (36.4-46.3); Red Blood Count 4.13 M/uL (4.2-5.4); White Blood Count 16.86 K/uL (4.8-10.8)
[2019-03-02 04:50] LABS: BUN Creatinine Ratio 39.4 (10-20); Calcium 8.5 mg/dl (8.5-10.1); Creatinine Clr Calc Pharmacy 44.1 ml/min; Est GFR (African American) 85.6; Est GFR (Non-African American) 73.8; Magnesium 1.9 mg/dl (1.8-2.4); Potassium 3.7 mmol/L (3.5-5.1)
[2019-03-02 04:51] LABS: Phosphorus 3.5 mg/dl (2.5-4.9)
[2019-03-02 05:27] LABS: ALC (manual) 3.56 K/uL (1.2-3.4); Eosinophils # (manual) 0.15 K/uL (0-0.5); Eosinophils % (manual) 0.9 %; Lymphocytes # (manual) 3.56 K/uL (1.2-3.4); Lymphocytes % (manual) 21.1 %; Monocytes # (manual) 0.15 K/uL (0.11-0.59); Monocytes % (manual) 0.9 %; Myelocytes % (manual) 1.8 %; Neutrophils % (manual) 75.3 %; RBC Morphology Unremarkable
[2019-03-02] MEDS: CARBOHYDRATES FOR HYPOGLYCEMIA PO PRN ×2 (07:33→07:41)
[2019-03-02] MEDS: LACTULOSE SYRUP 20 GM/30 ML UDC PO PRN (08:14)
[2019-03-02] MEDS: predniSONE 20 MG TAB PO SCH (08:14)
[2019-03-02] MEDS: HEPARIN SOD 5,000 UNIT/0.5 ML VIAL SQ SCH ×2 (08:14→20:54)
--- NOTE | 2019-03-02 10:01 | Pharmacy Report ---
Pharmacy Glycemic Short Note 2 - Date of Service March 02, 2019 - Glycemic Short BSG Results (Last 24 hours): 03/01/19 03/01/19 03/01/19 11:29 16:36 20:42 Glucose POC Glucose 106 H 116 H 137 H 03/02/19 03/02/19 03/02/19 00:59 04:03 04:09 Glucose 86 POC Glucose 95 80 03/02/19 03/02/19 03/02/19 07:21 07:23 07:40 Glucose POC Glucose 62 L* 65 L* 65 L* 03/02/19 07:56 Glucose POC Glucose 112 H Outpatient Anti-diabetic Regimen: * Metformin 1000 mg po BID * A1c = 7.5 % on 02/06/19 ASSESSMENT: * 78yo T2DM critically ill recovering from severe sepsis and hypoxemic respiratory failure secondary to pneumonia * 02/24/19-02/27/19: Was receiving high dose IV steroids and continuous tube feeds. Pt was requiring 33-71 units of insulin per day depending on tube feeding rate * 02/28/19: Pt extubated & tube feeds held - insulin needs dropped dramatically- BSGs running below goal for critically ill targets * 03/01/19: Diet advanced but pt "taking it slowly" with PO intake. Steroids tapered from Solumedrol 40mg IV Q12hrs to Prednisone 20mg daily. Insulin regimen will need dramatically decreased with this step down in steroid dosing. Considered starting NPH yesterday but held off since PO intake so low (steroids do not cause the same degree of hyperglycemia with NPO/low PO intake since they have their most profound effect on post-prandial hyperglycemia). No basal insulin administered since 02/28/19 AM (12 units) * 03/02/19: Pt with LOW BSG this morning @ 65 mg/dl. Pt asymptomatic. Pt required 2 x OJ to correct hypo. Pt also ate her breakfast (oatmeal + eggs) but did not require CHO coverage based on scale. Prednisone 20mg PO daily continues until 03/05/19. Will hold off on NPH to cover prednsione to prevent repeat hypo (likely NPH not needed with low dose prednsione) and just continue with aggressive bolus insulin scale. PLAN FOR INPATIENT GLYCEMIC CONTROL: * Holding outpatient oral diabetes medications * Basal insulin: Continue to hold * Bolus insulin: no changes needed today- continue high stress parameters for steroids and since basal insulin stopped. Will loosen parameters when indicated based on BSGs * NovoLog per scale ACHS or Q6hrs while NPO * Goal Range: Low 120 mg/dL - High 160 mg/dL * Correction Factor: 25 mg/dL/unit * Nutritional / Prandial insulin per carb ratio of 1 unit per 8 grams CHO consumed
[2019-03-02] MEDS ORDERED: levoFLOXacin 750 MG TAB PO SCH (11:00)
[2019-03-02] MEDS: ACETAMINOPHEN 325 MG TAB PO PRN (21:07)
--- NOTE | 2019-03-02 23:40 | Hospitalist Progress Note ---
Date of Service March 02, 2019 Assessment & Plan (1) Severe sepsis with acute organ dysfunction: lactic acid coming down to 2.4 no pressors required, still with acute hypoxic respiratory failure MICHELA resolved continue Cefepime and Levaquin blood, urine, bronchial lavage cultures all negative no fever, Patient was extubated on 02/28 Now in PCU. Patient gradually improving. will continue above treatment. (2) Pneumonia: multifocal pneumonia as above (3) ARDS (adult respiratory distress syndrome): resolved. (4) Acute respiratory distress: Currently intubated and sedated in ICU Patient presents with by lateral lower lobe pneumonia Immunosuppressed for rheumatoid arthritis -chronic steroids, Plaquenil,Tocilizumab, and history of methotrexate Elevated lactic acid and neutropenic on admission lactic acid down to 2.4, WBC is 11 continue systemic steroids with Solu-Medrol Continue IV Cefepime and Levaquin no growth on bronchial cultures (5) Elevated lactic acid level: Patient had a lactic acid of 7.6 on admission Improved to 2.4 Blood cultures show no growth at this time Urinalysis negative, urine culture no growth Patient with multifocal pneumonia with immunosuppression will continue cefepime 2 g every 12 hours and Levaquin (6) Abnormal electrocardiogram [ECG] [EKG]: trop peaked at 0.7, trending down. this is demand ischemia (7) Neutropenia: Chronic immunosuppression secondary to rheumatoid arthritis with meds as listed above resolved (8) Acute renal failure: Secondary to vomiting and diarrhea for the last 3 days prior to admission Cr down to 0.7 no further fluids, receiving enteral feedings (9) Diabetes mellitus: On Metformin at home HgbA1c at 7.5 Hold Metformin while inpatient and start Novolog SSI monitor for hypoglycemia (10) Long-term use of immunosuppressant medication: Seropositive for RA Follows with Dr. Lester Hold OP prednisone as we will be starting IV methylprednisolone Pain currently under control (11) History of breast cancer: Completed treatment in 2002 No other hx of malignancy No oral medications or suppressive therapy (12) DVT prophylaxis: Enoxaparin at 30 mg daily secondary to decreased creatinine clearance and GFR Subjective 78 yo female reports breathing better. She had 2 BM today. Feeling generalized weakness. Review of Systems Review of Systems: All systems reviewed & are unremarkable except as noted in HPI & below Physical Exam Physical Exam: Constitutional: ; no acute distress Eyes: PERRL, conjunctivae normal, anicteric sclerae Neck: trachea midline, no thyromegaly Respiratory: Auscultation: + crackles (bases) Cardiovascular: Rate/Rhythm: regular rhythm and + tachycardic Heart Sounds: normal S1 and normal S2; no murmur Vessels: no JVD Extremities: normal capillary refill; no edema Gastrointestinal (Abdomen): normal bowel sounds, soft, nontender, no hepatosplenomegaly Musculoskeletal: no cyanosis or clubbing Skin: no rashes, warm and dry Neurologic: patellar DTR's 2+ bilat, sensation intact and PERRL, EOMI, accommodation nl, no face palsy, no dysarthria Psychiatric: Orientation: + alert Lymphatic: no cervical or axillary lymphadenopathy Results & Data Vital Signs (Past 12 Hours) Vital Signs Temp Pulse Pulse Resp BP BP Pulse Ox 03/02/19 18:56 36.5 C 100 H 16 126/66 95 03/02/19 17:58 36.7 C 111 H 22 121/73 97 03/02/19 16:00 94 H PG Care Time/CCT Total # of Minutes Spent Total Time Spent with Patient: Total time spent is greater than 50% in coordination of care (as documented) at patient's floor/unit and/or counseling patient: (1) Pneumonia Laterality: right Lung location: lower lobe of lung Pneumonia type: due to unspecified organism Qualified Code(s): J18.9 - Pneumonia, unspecified organism (2) Neutropenia Neutropenia type: other drug-induced Qualified Code(s): D70.2 - Other drug- induced agranulocytosis (3) Acute renal failure Acute renal failure type: unspecified Qualified Code(s): N17.9 - Acute kidney failure, unspecified
[2019-03-03] MEDS: CEFEPIME 2,000 MG in SYRINGE 7.5 ML IV SCH (02:00)
[2019-03-03 07:23] LABS: Creatinine Clr Calc Pharmacy 67.8 ml/min; Est GFR (African American) 102.6; Est GFR (Non-African American) 88.5
--- NOTE | 2019-03-03 07:37 | Hospitalist Progress Note ---
Date of Service March 03, 2019 Assessment & Plan (1) Severe sepsis with acute organ dysfunction: #Severe sepsis with acute organ dysfunction: Patient presented to the hospital on 1230 with complaints of being sick for 2 to 3 days prior to admission with a nonproductive cough and hypoxia on presentation to the emergency department she was saturating 85% on room air, chest x-ray was consistent with pneumonia worse in the bibasilar rodgers, she had an increased creatinine consistent with an MICHELA and neutropenia. She is also endorsing nausea vomiting and diarrhea. She was intubated and admitted to the ICU for treatment of her respiratory symptoms. She was started on cefepime 2 g every 12 and Levaquin 750 mg while in the ICU. Patient was monitored and managed by the ICU staff and subsequently extubated on 02/28, she was transferred to the PCU on 03/01 and has been stable here since. -MICHELA resolved -cr:0.78 -Improving clinically, AFVSS -Received a total of 7 days of IV antibiotics, will DC cefepime tomorrow -Cultures continue to be negative #Pneumonia: Thought to be source of sepsis presentation. as above #ARDS (adult respiratory distress syndrome): resolved. #Acute respiratory distress: Patient with no history of home oxygen requirement. Currently on 2 L, likely secondary to recent illness wean as tolerated -PRN O2 as needed titrate for saturation greater than 90% #Elevated lactic acid level: Resolved See sepsis #Abnormal electrocardiogram [ECG] [EKG]: trop peaked at 0.7, trending down. Thought to represent demand ischemia in the setting of sepsis. No events on telemetry -Stable for downgrade to [facility] Neutropenia: Chronic immunosuppression secondary to rheumatoid arthritis with meds as listed above -Monitor #Acute renal failure: Resolved Secondary to vomiting and diarrhea for the last 3 days prior to admission -Cr down to 0.7 #Diabetes mellitus II: On Metformin at home, HgbA1c at 7.5. -Hold Metformin while inpatient and start Novolog SSI -monitor for hypoglycemia #Long-term use of immunosuppressant medication: Seropositive for RA, Follows with Dr. Lester Resumed po pred Pain currently under control #History of breast cancer: Completed treatment in 2002 No other hx of malignancy No oral medications or suppressive therapy FENa: Heart healthy carb consistent type II diabetic Code Status: Full code DVT PPX: Heparin PT/OT: Ordered, OT recommending rehab Dispo: Stable for downgrade to [facility], plan to monitor for 1 more day. Rishi Cheney MD PGY 2, FCM This chart was completed utilizing [employer] voice recognition software. Grammatical errors, random word insertions, pronoun errors, and in complete sentences are an occasional consequence of the system. Any questions or concerns about the content, text, or information contained within the body of this dictation should be addressed directly to the physician for clarification. (2) ARDS (adult respiratory distress syndrome): (3) Pneumonia: (4) Acute respiratory distress: (5) Elevated lactic acid level: (6) Abnormal electrocardiogram [ECG] [EKG]: (7) Tachycardia: (8) Long-term use of immunosuppressant medication: (9) Obesity (BMI 30.0-34.9): Supervising Physician Co-Signing Physician Notes I personally examined the patient and verified all meng points of history and exam, discussed case, and agree with decision making with Dr Cheney. Feeling surprisingly good overall. Breathing is feeling okay on 3 L. Her main complaints are weakness and leg muscle cramps. She notes that she was able to walk the hallway a little bit with therapy, but her legs were extremely achy and they still are in bed. Vitals noted, in general she is awake and alert pleasant no distress. HEENT normocephalic atraumatic mucous membranes are moist. Breathing unlabored no accessory muscle use. Skin shows no rashes no pallor or icterus. Her leg m uscles are weak and tendermostly tender in the lateral quads and the region of the IT band but no crepitus no fluctuance no erythema no focal lesions just diffusely sore feeling tender. Pneumonia/septic shock/ARDS status post intubationnow doing surprisingly well in this regard. Finish course of antibiotics. Focus care on rehab. Leg pain and muscle weaknessleading differential is critical illness myopathy as well as soreness from disuse. Symptomatic care with Tylenol and Skelaxin. PT/OT eval and treat. Continue to follow closely. She does not show any worrisome exam findings, but to consider checking CPK if the symptoms do not show improvement. DVT prophylaxisheparin subcu Disposition anticipate need for rehab in the near future Otherwise as above Subjective Patient sitting upright in bed this morning in no acute distress. Patient reports continued leg pain since waking up in the ICU. She describes the pain is musculoskeletal in nature, denies calf tenderness or calf pain, there is no leg swelling. Otherwise patient is continuing to improve from the symptoms which caused her to present. All questions answered, no acute concerns. Patient stable for downgrade to [facility] Physical Exam Physical Exam: General: Lying in bed in no acute distress HEENT: Normocephalic atraumatic Neck: Trachea midline normal to visual inspection Cardiac: Regular rate and rhythm, I did not appreciate any significant murmurs, rubs, gallops, normal S1, normal S2, negative calf tenderness, negative pedal edema Respiratory:Rhonchi present throughout all lung rodgers otherwise clear to auscultation with symmetrical chest rise bilaterally no increased work of breathing GI: Bowel sounds present, soft, nontender, nondistended MSK: Moves all extremities, endorsing bilateral quadricep MSK type pain Neuro: Alert and oriented x4 Psych: Calm and participating in the interview Results & Data Vital Signs (Past 12 Hours) Vital Signs Temp Pulse Resp BP Pulse Ox 03/03/19 03:18 36.6 C 97 H 18 127/75 95 03/02/19 23:42 36.4 C L 88 20 131/78 98 Laboratory Results 03/03/19 03/03/19 03/02/19 Range/Units 07:45 05:54 20:53 Creatinine 0.60 (0.6-1.2) mg/dl Est Cr Clr Drug Dosing 67.8 ml/min Est GFR ( Amer) 102.6 Est GFR (Non-Af Amer) 88.5 POC Glucose 76 106 H (70-99) 03/02/19 03/02/19 Range/Units 16:21 11:23 Creatinine (0.6-1.2) mg/dl Est Cr Clr Drug Dosing ml/min Est GFR ( Amer) Est GFR (Non-Af Amer) POC Glucose 194 H 124 H (70-99) Medications Administered Current Inpatient Medications Acetaminophen (Tylenol) 650 mg PO Q6H PRN PRN Reason: Pain or Fever Stop: 03/31/19 05:27 Last Admin: 03/03/19 08:31 Dose: 650 mg Documented by: Dextrose (Dextrose 50%) 25 - 50 ml IV UD PRN; Protocol PRN Reason: Hypoglycemia Protocol Stop: 03/26/19 13:06 Glucagon (Glucagen) 1 mg SQ UD PRN; Protocol PRN Reason: Hypoglycemia Protocol Stop: 03/26/19 13:06 Glucose (Dex4 Glucose) 4 - 8 tabs PO UD PRN; Protocol PRN Reason: Hypoglycemia Protocol Stop: 03/26/19 13:06 Glucose (Glucose 40%) 15 - 30 gm PO UD PRN; Protocol PRN Reason: Hypoglycemia Protocol Stop: 03/26/19 13:06 Heparin Sodium (Porcine) (Heparin Sodium (Porcine)) 5,000 units SQ Q12 DAVID Stop: 03/26/19 20:59 Last Admin: 03/03/19 08:21 Dose: 5,000 units Documented by: Cefepime HCl 2,000 mg/ Syringe 20 mls @ 5.5 mls/min IV Q12H DAVID; Protocol Stop: 03/03/19 13:29 Last Admin: 03/03/19 02:00 Dose: 5.5 mls/min Documented by: Dexmedetomidine HCl 200 mcg/ (Sodium Chloride) 50 mls @ 0 mls/hr IV .Q0M DAVID; Protocol Stop: 03/04/19 10:15 Last Titration: 03/01/19 07:12 Dose: Infused Documented by: Insulin Aspart (Novolog Flexpen) 0 units SC ACHS DAVID; Protocol Stop: 03/31/19 11:29 Last Admin: 03/03/19 08:22 Dose: Not Given Documented by: Ioversol (Optiray 320 125ml) 119 ml IV ONCE PRN PRN Reason: Interaction Checking Stop: 03/03/19 11:07 Last Admin: 02/27/19 11:08 Dose: 119 ml Documented by: Lactulose (Chronulac) 20 gm PO BID PRN PRN Reason: Constipation Stop: 03/30/19 08:59 Last Admin: 03/02/19 08:14 Dose: 20 gm Documented by: Miscellaneous (Carbohydrates For Hypoglycemia) 0 gm PO ONCE PRN PRN Reason: Hypoglycemia Treatment Stop: 04/01/19 07:32 Last Admin: 03/02/19 07:41 Dose: 15 gm Documented by: Miscellaneous Information (Consult Glycemic Management Pharmacy) 1 ea N/A UD PRN; Protocol PRN Reason: Consult Stop: 03/26/19 13:18 Prednisone (Prednisone) 20 mg PO DAILY [facility] Stop: 03/04/19 09:01 Last Admin: 03/03/19 08:21 Dose: 20 mg Documented by: Prednisone (Prednisone) 10 mg PO DAILY [facility] Stop: 03/08/19 09:01 Prednisone (Prednisone) 5 mg PO DAILY [facility] Stop: 03/12/19 09:01 Resident Activity Tracking Resident Involvement: Resident Care Provided Care Provided: Adult [facility] Medicine (1) Pneumonia Laterality: right Lung location: lower lobe of lung Pneumonia type: due to unspecified organism Qualified Code(s): J18.9 - Pneumonia, unspecified organism
[2019-03-03] MEDS: predniSONE 20 MG TAB PO SCH (08:21)
[2019-03-03] MEDS: HEPARIN SOD 5,000 UNIT/0.5 ML VIAL SQ SCH ×2 (08:21→20:34)
[2019-03-03] MEDS: INSULIN ASPART 100 UNITS/ML 3 ML PEN SC SCH ×4 (08:22→20:34)
[2019-03-03] MEDS: ACETAMINOPHEN 325 MG TAB PO PRN (08:31)
[2019-03-03] MEDS: METAXALONE 800 MG TABLET PO PRN ×2 (15:24→20:30)
[2019-03-03] MEDS ORDERED: ONDANSETRON 4 MG OD TAB PO PRN (16:47)
--- NOTE | 2019-03-03 17:26 | Billing Data ---
Date of Service March 03, 2019 Coding Level of Care Code 06926 Subseq Hosp Care Lvl 2
[2019-03-03] MEDS: ACETAMINOPHEN 325 MG TAB PO SCH ×2 (18:10→23:25)
[2019-03-03] MEDS: POLYETHYLENE (MIRALAX) 17 GM PACK PO SCH (20:30)
[2019-03-03] MEDS ORDERED: METAXALONE 800 MG TABLET PO SCH (21:00)
[2019-03-03] MEDS ORDERED: OXYCODONE/ACETAMINOPHEN 5mg/325mg TAB PO STA (23:40)
[2019-03-04] MEDS: ACETAMINOPHEN 325 MG TAB PO SCH ×4 (05:27→23:40)
[2019-03-04 06:04] LABS: Eosinophils # (auto) 0.36 K/uL (0-0.5); Eosinophils % (auto) 2.9 %; Hematocrit (blood only) 33.9 % (37-47); Hemoglobin 11.5 g/dL (12.0-16.0); Immature Granulocytes # (auto) 0.39 K/uL (0.00-0.02); Immature Granulocytes % (auto) 3.2 %; Lymphocytes # (auto) 4.23 K/uL (1.2-3.4); Lymphocytes % (auto) 34.3 %; Mean Corpuscular Hemoglobin 32.4 pg (25-34); Mean Corpuscular Hgb Conc 33.9 g/dL (32-36); Mean Corpuscular Volume 95.5 fL (80-100); Mean Platelet Volume 8.8 fL (7.4-10.4); Monocytes # (auto) 0.52 K/uL (0.11-0.59); Monocytes % (auto) 4.2 %; Neutrophils # (auto) 6.82 K/uL (1.4-6.5); Neutrophils % (auto) 55.4 %; Platelet Count 188 K/uL (130-400); RDW Coefficient of Variation 13.9 % (11.5-14.5); RDW Standard Deviation 48.2 fL (36.4-46.3); Red Blood Count 3.55 M/uL (4.2-5.4); White Blood Count 12.32 K/uL (4.8-10.8)
[2019-03-04 06:37] LABS: BUN Creatinine Ratio 32.2 (10-20); Calcium 8.5 mg/dl (8.5-10.1); Creatinine Clr Calc Pharmacy 65.6 ml/min; Est GFR (African American) 101.5; Est GFR (Non-African American) 87.6; Potassium 3.6 mmol/L (3.5-5.1)
--- NOTE | 2019-03-04 07:59 | Hospitalist Progress Note ---
Date of Service March 04, 2019 Assessment & Plan (1) Severe sepsis with acute organ dysfunction: #Severe sepsis with acute organ dysfunction: Patient presented to the hospital on 1230 with complaints of being sick for 2 to 3 days prior to admission with a nonproductive cough and hypoxia on presentation to the emergency department she was saturating 85% on room air, chest x-ray was consistent with pneumonia worse in the bibasilar rodgers, she had an increased creatinine consistent with an MICHELA and neutropenia. She is also endorsing nausea vomiting and diarrhea. She was intubated and admitted to the ICU for treatment of her respiratory symptoms. She was started on cefepime 2 g every 12 and Levaquin 750 mg while in the ICU. Patient was monitored and managed by the ICU staff and subsequently extubated on 02/28, she was transferred to the PCU on 03/01 and has been stable here since. -MICHELA resolved -cr:0.62, back to baseline -Improving clinically, AFVSS -Received a total of 7 days of IV antibiotics, -Monitor fever curve -Cultures continue to be negative -On pred taper 20 X1, 10x4, 5x4 -White count continues to drown trend 12.32 today #Pneumonia: Thought to be source of sepsis presentation. as above #ARDS (adult respiratory distress syndrome): Resolved #Acute respiratory distress: Patient with no history of home oxygen requirement. Currently on 2 L, likely secondary to recent illness wean as tolerated -PRN O2 as needed titrate for saturation greater than 90% -Saturating 93% on room air #Elevated lactic acid level: Resolved See sepsis #Abnormal electrocardiogram [ECG] [EKG]: trop peaked at 0.7, trending down. Thought to represent demand ischemia in the setting of sepsis. No events on telemetry Neutropenia: Chronic immunosuppression secondary to rheumatoid arthritis with meds as listed above -Monitor #Acute renal failure: Resolved Secondary to vomiting and diarrhea for the last 3 days prior to admission. #Diabetes mellitus II: On Metformin at home, HgbA1c at 7.5. -Hold Metformin while inpatient and start Novolog SSI -monitor for hypoglycemia #Long-term use of immunosuppressant medication: Seropositive for RA, Follows with Dr. Lester -Resumed po pred -Pain currently under control #History of breast cancer: Completed treatment in 2002, No other hx of malignancy, No oral medications or suppressive therapy FENa: Heart healthy carb consistent type II diabetic Code Status: Full code DVT PPX: Heparin PT/OT: Ordered, OT recommending rehab Dispo: Stable for discharge pending placement Rishi Cheney MD PGY 2, FCM This chart was completed utilizing [employer] voice recognition software. Grammatical errors, random word insertions, pronoun errors, and in complete sentences are an occasional consequence of the system. Any questions or concerns about the content, text, or information contained within the body of this dictation should be addressed directly to the physician for clarification. (2) ARDS (adult respiratory distress syndrome): (3) Pneumonia: (4) Acute respiratory distress: (5) Elevated lactic acid level: (6) Abnormal electrocardiogram [ECG] [EKG]: (7) Tachycardia: (8) Long-term use of immunosuppressant medication: (9) Obesity (BMI 30.0-34.9): Supervising Physician Co-Signing Physician Notes I personally examined the patient and verified all meng points of history and exam, discussed case, and agree with decision making with Dr Cheney. Feeling better and brighter. No shortness of breath, leg cramps and pain are still there but definitely better than yesterday. Walked better today as well. Very pleased with her progress. Vitals noted, in general she is awake and alert pleasant no distress. HEENT normocephalic atraumatic mucous membranes are moist. Breathing unlabored no accessory muscle use. Skin shows no rashes no pallor or icterus. No focal neuro deficits Pneumonia/septic shock/ARDS status post intubationnow doing surprisingly well in this regard. Completed course of antibiotics. Focus care on rehabanticipate transition to rehab facility once available. Leg pain and muscle weaknessleading differential is critical illness myopathy as well as soreness from disuse. Symptomatic care with Tylenol and Skelaxin. PT/OT eval and treat. Is showing day today improvement DVT prophylaxisheparin subcu Disposition for rehab once approved Otherwise as above Subjective Patient sitting up in bed this morning in no acute distress. Patient reports no acute events overnight. She reports tolerating her diet, voiding, stooling, sleeping okay overnight secondary to leg pain. Patient is still endorsing bilateral quadriceps pain this is thought to be secondary to prolonged intubation, and deconditioning associated with it. Patient received Percocet overnight and made significant improvement able to achieve sleep. Had a conversation with the patient this morning regarding whether or not to pursue inpatient rehab. 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 Patient is agreeable. Acute concerns are present related to rehab placement, all questions answered Physical Exam Physical Exam: General: Elderly female sitting up in bed in no acute distress HEENT: Normocephalic atraumatic Neck: Normal to visual inspection, trachea midline, no thyromegaly, did not appreciate JVD Cardiac: Regular rate and rhythm, I did not appreciate any significant murmurs, rubs, gallops, normal S1, normal S2. I did not appreciate significant pedal edema, I did not ask appreciate significant calf tenderness Respiratory: Clear to auscultation bilaterally without significant wheezes, rales, rhonchi, with the exception of rhonchi in the right lower lobe symmetrical chest expansion bilaterally GI: Soft, nontender, nondistended, bowel sounds present MSK: Pain in the bilateral quadriceps although able to move them strength intact Neuro: Alert and oriented x4 Psych: Calm, cooperative Results & Data Vital Signs (Past 12 Hours) Vital Signs Temp Pulse Pulse Resp BP BP Pulse Ox 03/04/19 07:13 36.5 C 82 16 111/66 99 03/04/19 05:00 36.5 C 98 H 18 112/57 L 94 03/04/19 00:16 36.7 C 94 H 20 128/60 96 Laboratory Results 03/04/19 03/04/19 03/04/19 Range/Units 11:33 07:25 05:39 WBC (4.8-10.8) K/uL RBC (4.2-5.4) M/uL Hgb (12.0-16.0) g/dL Hct (37-47) % MCV (80-100) fL MCH (25-34) pg MCHC (32-36) g/dL RDW Std Deviation (36.4-46.3) fL RDW Coeff of Delma (11.5-14.5) % Plt Count (130-400) K/uL MPV (7.4-10.4) fL Immature Gran % (Auto) % Neut % (Auto) % Lymph % (Auto) % [place] % (Auto) % Eos % (Auto) % Baso % (Auto) % Immature Gran # (Auto) (0.00-0.02) K/uL Neut # (Auto) (1.4-6.5) K/uL Lymph # (Auto) (1.2-3.4) K/uL [place] # (Auto) (0.11-0.59) K/uL Eos # (Auto) (0-0.5) K/uL Baso # (Auto) (0-0.2) K/uL Sodium 139 (136-145) mmol/L Potassium 3.6 (3.5-5.1) mmol/L Chloride 107 (98-107) mmol/L Carbon Dioxide 28 (21-32) mmol/L Anion Gap 5.0 (3-11) BUN 20 H (7-18) mg/dl Creatinine 0.62 (0.6-1.2) mg/dl Est Cr Clr Drug Dosing 65.6 ml/min Est GFR ( Amer) 101.5 Est GFR (Non-Af Amer) 87.6 BUN/Creatinine Ratio 32.2 H (10-20) Glucose 85 (70-99) mg/dl POC Glucose 137 H 78 (70-99) Calcium 8.5 (8.5-10.1) mg/dl 03/04/19 03/03/19 03/03/19 Range/Units 05:39 20:16 16:48 WBC 12.32 H (4.8-10.8) K/uL RBC 3.55 L (4.2-5.4) M/uL Hgb 11.5 L (12.0-16.0) g/dL Hct 33.9 L (37-47) % MCV 95.5 (80-100) fL MCH 32.4 (25-34) pg MCHC 33.9 (32-36) g/dL RDW Std Deviation 48.2 H (36.4-46.3) fL RDW Coeff of [place] 13.9 (11.5-14.5) % Plt Count 188 (130-400) K/uL MPV 8.8 (7.4-10.4) fL Immature Gran % (Auto) 3.2 % Neut % (Auto) 55.4 % Lymph % (Auto) 34.3 % [place] % (Auto) 4.2 % Eos % (Auto) 2.9 % Baso % (Auto) 0.0 % Immature Gran # (Auto) 0.39 H (0.00-0.02) K/uL Neut # (Auto) 6.82 H (1.4-6.5) K/uL Lymph # (Auto) 4.23 H (1.2-3.4) K/uL [place] # (Auto) 0.52 (0.11-0.59) K/uL Eos # (Auto) 0.36 (0-0.5) K/uL Baso # (Auto) 0.00 (0-0.2) K/uL Sodium (136-145) mmol/L Potassium (3.5-5.1) mmol/L Chloride (98-107) mmol/L Carbon Dioxide (21-32) mmol/L Anion Gap (3-11) BUN (7-18) mg/dl Creatinine (0.6-1.2) mg/dl Est Cr Clr Drug Dosing ml/min Est GFR ( Amer) Est GFR (Non-Af Amer) BUN/Creatinine Ratio (10-20) Glucose (70-99) mg/dl POC Glucose 165 H 191 H (70-99) Calcium (8.5-10.1) mg/dl Medications Administered Current Inpatient Medications Acetaminophen (Tylenol) 650 mg PO Q6 DAVID Stop: 04/02/19 17:59 Last Admin: 03/04/19 05:27 Dose: 650 mg Documented by: Dextrose (Dextrose 50%) 25 - 50 ml IV UD PRN; Protocol PRN Reason: Hypoglycemia Protocol Stop: 03/26/19 13:06 Glucagon (Glucagen) 1 mg SQ UD PRN; Protocol PRN Reason: Hypoglycemia Protocol Stop: 03/26/19 13:06 Glucose (Dex4 Glucose) 4 - 8 tabs PO UD PRN; Protocol PRN Reason: Hypoglycemia Protocol Stop: 03/26/19 13:06 Glucose (Glucose 40%) 15 - 30 gm PO UD PRN; Protocol PRN Reason: Hypoglycemia Protocol Stop: 03/26/19 13:06 Heparin Sodium (Porcine) (Heparin Sodium (Porcine)) 5,000 units SQ Q12 DAVID Stop: 03/26/19 20:59 Last Admin: 03/04/19 08:40 Dose: 5,000 units Documented by: Insulin Aspart (Novolog Flexpen) 0 units SC ACHS DAVID; Protocol Stop: 03/31/19 11:29 Last Admin: 03/04/19 08:42 Dose: Not Given Documented by: Metaxalone (Skelaxin) 800 mg PO TID PRN PRN Reason: Pain Stop: 04/02/19 20:59 Last Admin: 03/03/19 20:30 Dose: 800 mg Documented by: Miscellaneous (Carbohydrates For Hypoglycemia) 0 gm PO ONCE PRN PRN Reason: Hypoglycemia Treatment Stop: 04/01/19 07:32 Last Admin: 03/02/19 07:41 Dose: 15 gm Documented by: Miscellaneous Information (Consult Glycemic Management Pharmacy) 1 ea N/A UD PRN; Protocol PRN Reason: Consult Stop: 03/26/19 13:18 Ondansetron HCl (Zofran Odt) 4 mg PO Q6H PRN PRN Reason: Nausea Stop: 04/02/19 16:46 Last Admin: 03/04/19 05:27 Dose: 4 mg Documented by: Polyethylene Glycol (Miralax Powder Packet) 17 gm PO BID [facility] Stop: 04/02/19 20:59 Last Admin: 03/04/19 08:39 Dose: Not Given Documented by: Prednisone (Prednisone) 10 mg PO DAILY [facility] Stop: 03/08/19 09:01 Prednisone (Prednisone) 5 mg PO DAILY [facility] Stop: 03/12/19 09:01 Resident Activity Tracking Resident Involvement: Resident Care Provided Care Provided: Adult Hospital Medicine (1) Pneumonia Laterality: right Lung location: lower lobe of lung Pneumonia type: due to unspecified organism Qualified Code(s): J18.9 - Pneumonia, unspecified organism
[2019-03-04] MEDS: POLYETHYLENE (MIRALAX) 17 GM PACK PO SCH ×2 (08:39→21:06)
[2019-03-04] MEDS: predniSONE 20 MG TAB PO SCH (08:39)
[2019-03-04] MEDS: HEPARIN SOD 5,000 UNIT/0.5 ML VIAL SQ SCH ×2 (08:40→21:03)
[2019-03-04] MEDS: INSULIN ASPART 100 UNITS/ML 3 ML PEN SC SCH ×4 (08:42→21:03)
--- NOTE | 2019-03-04 18:57 | Billing Data ---
Date of Service March 04, 2019 Coding Level of Care Code 93496 Subseq Hosp Care Lvl 2
[2019-03-05] MEDS: ACETAMINOPHEN 325 MG TAB PO SCH ×3 (05:00→17:48)
[2019-03-05 06:40] LABS: Creatinine Clr Calc Pharmacy 70.1 ml/min; Est GFR (African American) 103.8; Est GFR (Non-African American) 89.5
[2019-03-05] MEDS ORDERED: COUGH DROP (SUGAR FREE) LOZ 24 LOZ/1 BOX BUCCAL ONE (07:41)
--- NOTE | 2019-03-05 08:25 | Discharge Summary ---
Date of Service March 05, 2019 Admission HPI Per Admitting Provider Attending: Dr. Margoth Cheney There is a 78-year-old female that follows with Dr. Rajinder Denise as an outpatient. She has a past medical history including history of breast cancer in 2002, anxiety, chronic back pain, diabetes mellitus controlled on metformin, hypercholesterolemia, hypertension, seropositive rheumatoid arthritis on immunosuppressive therapy and chronic prednisone, solitary thyroid nodule, osteopenia, lumbar stenosis, and obesity with a BMI of 30.3. The patient states that she began feeling ill and "under the weather" several days ago. Over the last 2 to 3 days this worsened to the point where she had cough which was nonproductive but caused hypoxia and shortness of breath. She presented emergency department was found to have a room air SaO2 of 85%. Chest x-ray revealed multilobar pneumonia with emphasis in the bilateral lower lobes. Patient also had an acute elevation of creatinine with calculated creatinine clearance of 32 and a GFR of 39.1. Patient's magnesium was also found to be low at 0.8. Her other other electrolytes seem to be balanced. Lab review further revealed neutropenia with an ANC of 0.9 and a WBC of 2.99. Patient's platelet count was appropriate at 123. Patient states that she did have nausea and vomiting as well as some diarrhea over the last 2 or 3 days. She has family visiting for the holidays and was exposed to sick toddlers with a 3-year-old grandchild that had upper respiratory infection. Patient states that she felt warm but had no documented fever. She had no sweats or Reiger's. Patient denies any chest pain or tightness. She has no abdominal pain. She has no acute back pain. She denies any history of heart disease and has no difficulty with edema of the lower extremities. She does have a history of breast cancer in 2002 with completion of treatment at that time. She has no other history of malignancy and no history of thromboembolic disease. The patient complains of malaise which is worsened since yesterday. She has no falls or imbalance. She has no recent travel. The patient states that she has a lifelong non-smoker. She has no history of ethanol abuse. She has no history of substance abuse. She is on chronic steroids is on a current taper of 4 mg of prednisone a day and was scheduled to go to 3 mg on Sunday. She is and lives with her of 45 years. Admission Exam Per Admitting Provider GENERAL : No acute distress. Patient does have cough with shortness of breath. With no production of sputum. EYES: No icterus, gaze conjugate. Pupils equal round and reactive to light NOSE: No evidence of epistaxis. Nonrebreather mask is in place MOUTH: No lesions or candidiasis. Mucosa is extremely dry. Tongue is midline. Nonrebreather mask is in place NECK: Supple. No JVD. No stridor appreciated. LUNGS: Coarse crackles at bilateral bases. No rhonchi. No expiratory wheezes. HEART: Regular, tachycardic. No appreciation of murmurs gallops or rubs. ABDOMEN: Soft, NT, ND, BS Present. No rebound tenderness EXTREMITIES: No LE edema, pedal pulses intact. All extremities are equal in strength but weak NEURO: A&OX3. Pupils equal round reactive to light. No focal deficits appreciated Principal Diagnosis Acute respiratory distress syndrome secondary to sepsis requiring ICU admission and intubation in the setting of multifocal pneumonia Discharge Exam General: Elderly female sitting up in bed in no acute distress HEENT: Normocephalic atraumatic Neck: Normal to visual inspection, trachea midline, no thyromegaly, did not appreciate JVD Cardiac: Regular rate and rhythm, I did not appreciate any significant murmurs, rubs, gallops, normal S1, normal S2. I did not appreciate significant pedal edema, I did not ask appreciate significant calf tenderness Respiratory: Clear to auscultation bilaterally without significant wheezes, rales, rhonchi, symmetrical chest expansion bilaterally GI: Soft, nontender, nondistended, bowel sounds present MSK: Pain improving in the bilateral quadriceps although able to move them strength intact Neuro: Alert and oriented x4 Psych: Calm, cooperative Discharge Data Allergies Allergy/AdvReac Type Severity Reaction Status Date / Time adalimumab Allergy Unknown BREATHING Verified 02/24/19 09:08 PROBLEMS celecoxib Allergy Unknown UNKNOWN Verified 02/24/19 09:08 tramadol AdvReac Mild NAUSEA Verified 02/24/19 09:08 Consultations 02/24/19 09:21 ED Decision to Admit Stat Ordered Studies 02/24/19 15:38 US point of care ultrasound Urgent 02/24/19 16:31 US venous doppler LE BI Routine 02/26/19 10:03 US point of care ultrasound Urgent 02/27/19 10:44 CT angio chest PE protocol Urgent Hospital Course (1) Severe sepsis with acute organ dysfunction: #Severe sepsis with acute organ dysfunction resulting in acute respiratory distress syndrome in the setting of pneumonia Patient presented to the hospital on 02/24 with complaints of being sick for 2 to 3 days prior to admission with a nonproductive cough and hypoxia on presentation to the emergency department she was saturating 85% on room air, chest x-ray was consistent with pneumonia worse in the bibasilar rodgers, she had an increased creatinine consistent with an MICHELA and neutropenia. She is also endorsing nausea vomiting and diarrhea. She was intubated and admitted to the ICU for treatment of her respiratory symptoms. She was started on cefepime 2 g every 12 and Levaquin 750 mg while in the ICU. Patient was monitored and managed by the ICU staff and subsequently extubated on 02/28, she was transferred to the PCU on 03/01 and has been stable here since. Since being transferred to general medical floor the patient has been afebrile with vital signs stable. Initially she was crying 2 L of oxygen, and slowly tapered off this now saturating well on room air. Her MICHELA resolved and her most recent creatinine is 0.58 this is back to baseline. Through the out the admission her microbiology cultures remain negative. She is currently on a prednisone taper today will be first day of 10 mg she will then complete 10 mg x 3 days and 5 mg x 4 days. #Abnormal electrocardiogram [ECG] [EKG]: On presentation patient had an abnormal ECG with an elevated troponin which peaked at 0.7, trending down. Thought to represent demand ischemia in the set ting of sepsis. No events on telemetry -Consider outpatient ECG to follow Neutropenia: Chronic immunosuppression secondary to rheumatoid arthritis with meds as listed above -Consider outpatient CBC to follow #MICHELA: Resolved Secondary to vomiting and diarrhea for the last 3 days prior to admission. #Diabetes mellitus II: On Metformin at home, HgbA1c at 7.5. Held metformin while hospitalized and was monitored on NovoLog SSI. -Resume metformin on discharge #Long-term use of immunosuppressant medication: Seropositive for RA, Follows with Dr. Lester -Resumed po pred -Pain currently under control #History of breast cancer: Completed treatment in 2002, No other hx of malignancy, No oral medications or suppressive therapy #Constipation had a bout of constipation thought to be 2/2 to opioid narcotics resolved s/p relistor and miralax -consider continuing miralax as an outpt FENa: Heart healthy carb consistent type II diabetic Code Status: Full code DVT PPX: Heparin PT/OT: Ordered, PT/OT recommending rehab Dispo: [facility] Rishi Cheney MD PGY 2, FCM This chart was completed utilizing [employer] voice recognition software. Grammatical errors, random word insertions, pronoun errors, and in complete sentences are an occasional consequence of the system. Any questions or concerns about the content, text, or information contained within the body of th is dictation should be addressed directly to the physician for clarification. (2) ARDS (adult respiratory distress syndrome): (3) Pneumonia: (4) Acute respiratory distress: (5) Elevated lactic acid level: (6) Abnormal electrocardiogram [ECG] [EKG]: (7) Tachycardia: (8) Long-term use of immunosuppressant medication: (9) Obesity (BMI 30.0-34.9): Total Time Total Time Spent Total Time Spent (In Minutes): <30 Discharge Plan Discharge Items Patient Disposition: Transfer Inpatient Rehab Fac Reason For Visit: HYPOXIA Discharge Diagnosis: Acute respiratory distress syndrome secondary to sepsis requiring ICU admission and intubation in the setting of multifocal pneumonia Activity: As commented below Activity Comment: Per rehab Non-emergency contact: Primary Care Provider Call non-emergency contact if: you have any medication questions, your symptoms worsen, your pain is worsening and you have a fever Follow-up/Referrals: Rajinder Denise MD [Primary Care Provider] - Diet: Carb Consistent or DM2 and Heart Healthy Addtl Attending Provider Instructions: #Severe sepsis with acute organ dysfunction resulting in acute respiratory distress syndrome in the setting of pneumonia Patient presented to the hospital on 02/24 with complaints of being sick for 2 to 3 days prior to admission with a nonproductive cough and hypoxia on presentation to the emergency department she was saturating 85% on room air, chest x-ray was consistent with pneumonia worse in the bibasilar rodgers, she had an increased creatinine consistent with an MICHELA and neutropenia. She is also endorsing nausea vomiting and diarrhea. She was intubated and admitted to the ICU for treatment of her respiratory symptoms. She was started on cefepime 2 g every 12 and Levaquin 750 mg while in the ICU. Patient was monitored and managed by the ICU staff and subsequently extubated on 02/28, she was transferred to the PCU on 03/01 and has been stable here since. Since being transferred to general medical floor the patient has been afebrile with vital signs stable. Initially she was crying 2 L of oxygen, and slowly tapered off this now saturating well on room air. Her MICHELA resolved and her most recent creatinine is 0.58 this is back to baseline. Through the out the admission her microbiology cultures remain negative. She is currently on a prednisone taper, today will be last day of 20 mg, she will then complete 10 mg x 4 days and 5 mg x 4 days. -Complete prednisone taper 10 mg x 4 days and 5 mg x 4 days #Abnormal electrocardiogram [ECG] [EKG]: On presentation patient had an abnormal ECG with an elevated troponin which peaked at 0.7, trending down. Thought to represent demand ischemia in the setting of sepsis. No events on telemetry -Consider outpatient ECG to follow Neutropenia: Chronic immunosuppression secondary to rheumatoid arthritis with meds as listed above -Consider outpatient CBC to follow #MICHELA: Resolved Secondary to vomiting and diarrhea for the last 3 days prior to admission. -Consider outpatient BMP to follow-up #Diabetes mellitus II: On Metformin at home, HgbA1c at 7.5. Held metformin while hospitalized and was monitored on NovoLog SSI. -Resume metformin on discharge #Long-term use of immunosuppressant medication: Seropositive for RA, Follows with Dr. Lester -Resumed po pred -Pain currently under control #History of breast cancer: Completed treatment in 2002, No other hx of malignancy, No oral medications or suppressive therapy #Constipation had a bout of constipation thought to be 2/2 to opioid narcotics resolved s/p relistor and miralax -consider continuing miralax as an outpt FENa: Heart healthy carb consistent type II diabetic Code Status: Full code DVT PPX: Heparin PT/OT: Ordered, PT/OT recommending rehab Dispo: [facility] Rishi Cheney MD PGY 2, FCM This chart was completed utilizing [employer] voice recognition software. Grammatical errors, random word insertions, pronoun errors, and in complete sentences are an occasional consequence of the system. Any questions or concerns about the content, text, or information contained within the body of this dictation should be addressed directly to the physician for clarification. Pending Studies at Discharge: No Stand-Alone Forms: My [facility] Skilled Items Patient informed of condition?: Yes DNR: No Discharge Level of Care: Skilled Communicable Disease: No Discharge Prognosis: Improving Lines: None Urinary Catheter: No Medications and DC Order Prescriptions: New prednisone 10 mg Tablet 10 mg PO DAILY Qty: 3 RF: 0 prednisone 5 mg Tablet 5 mg PO DAILY Qty: 4 RF: 0 acetaminophen [Mapap (acetaminophen)] 325 mg Tablet 650 mg PO Q6 Qty: 30 RF: 0 Continued hydroxychloroquine 200 mg tablet 300 mg PO QDD RF: 0 pantoprazole 40 mg tablet,delayed release (DR/EC) 40 mg PO BID Qty: 180 RF: 0 metformin 500 mg tablet extended release 24hr 1,000 mg PO BID Qty: 360 RF: 0 spironolacton-hydrochlorothiaz 25-25 mg tablet 1 tab PO BID Qty: 180 RF: 0 calcium carbonate [Calcium 500] 500 mg calcium (1,250 mg) tablet 500 mg PO QAM RF: 0 multivitamin tablet 1 tab PO QAM RF: 0 B-complex with vitamin C [Super B Complex-Vitamin C] tablet 1 tab PO QAM RF: 0 cyanocobalamin (vitamin B-12) 1,000 mcg tablet 1,000 mcg PO QAM RF: 0 propranolol 10 mg tablet 20 mg PO TID PRN (Reason: hypertension) Qty: 180 RF: 0 Actemra 200 mg/10 mL (20 mg/mL) solution 500 mg IV Q28D Qty: 25 RF: 5 prednisone 1 mg tablet 4 mg PO QAM RF: 0 atorvastatin 40 mg tablet 40 mg PO HS RF: 0 Discharge Orders: Discharge Order (Routine); Ordered 03/06/19 Ordered By: Rishi Cheney Admission Data Admit Date/Time: 02/24/19 11:12 Attending Provider: Tenzin Mann Admit Provider: Margoth Cheney Primary Care Provider: Rajinder Denise Other Providers: Benja Parr ; Victoria Silva ; [facility] ; Shane Saldaña [facility] Other Interventions: Discharge Summary Assessment (RN) Last Done: 03/06/19 11:06 DC Date/Time DO NOT enter until pt leaves facility: 03/06/19 13:08 Supervising Physician Co-Signing Physician Notes I personally examined the patient and verified all meng points of history and exam, discussed case, and agree with decision making with Dr Cheney. Feeling better and brighter. feels like she's doing better. approved for rehab! Vitals noted, in general she is awake and alert pleasant no distress. HEENT normocephalic atraumatic mucous membranes are moist. Breathing unlabored no accessory muscle use. Skin shows no rashes no pallor or icterus. No focal neuro deficits Pneumonia/septic shock/ARDS status post intubationnow doing surprisingly well in this regard. Completed course of antibiotics. Focus care on rehabstable for transfer Leg pain and muscle weaknessleading differential is critical illness myopathy as well as soreness from disuse. Symptomatic care with Tylenol and Skelaxin. PT/OT eval and treat. improving each day DVT prophylaxisheparin subcu utilized while here Disposition for rehab today Otherwise as above Resident Activity Tracking Resident Involvement: Resident Care Provided Care Provided: Adult Hospital Medicine
[2019-03-05] MEDS ORDERED: MAGNESIUM HYDROXIDE SUSP 30 ML UDC PO STA (08:37)
[2019-03-05] MEDS: DOCUSATE SODIUM/SENNA 50/8.6MG TAB PO SCH (08:47)
[2019-03-05] MEDS: predniSONE 10 MG TABLET PO SCH (08:47)
[2019-03-05] MEDS: HEPARIN SOD 5,000 UNIT/0.5 ML VIAL SQ SCH ×2 (08:48→20:35)
[2019-03-05] MEDS: INSULIN ASPART 100 UNITS/ML 3 ML PEN SC SCH ×4 (08:55→20:35)
[2019-03-05] MEDS: POLYETHYLENE (MIRALAX) 17 GM PACK PO SCH ×2 (08:55→20:40)
[2019-03-05] MEDS ORDERED: MAGNESIUM HYDROXIDE SUSP 30 ML UDC PO PRN (16:01)
[2019-03-05] MEDS ORDERED: METHYLNALTREXONE BROMIDE 12 MG/0.6 ML VIAL SQ ONE (16:15)
[2019-03-05] MEDS ORDERED: MAGNESIUM HYDROXIDE SUSP 30 ML UDC PO ONE (16:15)
--- NOTE | 2019-03-05 18:09 | Hospitalist Progress Note ---
Date of Service March 05, 2019 Assessment & Plan (1) Severe sepsis with acute organ dysfunction: #Severe sepsis with acute organ dysfunction resulting in acute respiratory distress syndrome in the setting of pneumonia Patient presented to the hospital on 02/24 with complaints of being sick for 2 to 3 days prior to admission with a nonproductive cough and hypoxia on presentation to the emergency department she was saturating 85% on room air, chest x-ray was consistent with pneumonia worse in the bibasilar rodgers, she had an increased creatinine consistent with an MICHELA and neutropenia. She is also endorsing nausea vomiting and diarrhea. She was intubated and admitted to the ICU for treatment of her respiratory symptoms. She was started on cefepime 2 g every 12 and Levaquin 750 mg while in the ICU. Patient was monitored and managed by the ICU staff and subsequently extubated on 02/28, she was transferred to the PCU on 03/01 and has been stable here since. Since being transferred to general medical floor the patient has been afebrile with vital signs stable. Initially she was crying 2 L of oxygen, and slowly tapered off this now saturating well on room air. Her MICHELA resolved and her most recent creatinine is 0.58 this is back to baseline. Through the out the admission her microbiology cultures remain negative. -On prednisone taper 10 mg x 4 days and 5 mg x 4 days. #Constipation Patient reporting constipation despite MiraLAX twice daily. -Buttered prunes -Senna daily -MiraLAX twice daily scheduled -Milk of magnesia every 6 hours -Given 1 dose of Relistor, patient received a large opiate dose for sedation while in the ICU, and then some p.o. medication for muscle pain. #Abnormal electrocardiogram [ECG] [EKG]: On presentation patient had an abnormal ECG with an elevated troponin which peaked at 0.7, trending down. Thought to represent demand ischemia in the setting of sepsis. No events on telemetry #Neutropenia: Chronic immunosuppression secondary to rheumatoid arthritis with meds as listed above #MICHELA: Resolved Secondary to vomiting and diarrhea for the last 3 days prior to admission. #Diabetes mellitus II: On Metformin at home, HgbA1c at 7.5. Held metformin while hospitalized and was monitored on NovoLog SSI. -Resume metformin on discharge #Long-term use of immunosuppressant medication: Seropositive for RA, Follows with Dr. Lester -Resumed po pred -Pain currently under control #History of breast cancer: Completed treatment in 2002, No other hx of malignancy, No oral medications or suppressive therapy FENa: Heart healthy carb consistent type II diabetic Code Status: Full code DVT PPX: Heparin PT/OT: Ordered, PT/OT recommending rehab Dispo: Stable for discharge to rehab Rishi Cheney MD PGY 2, FCM This chart was completed utilizing [employer] voice recognition software. Grammatical errors, random word insertions, pronoun errors, and in complete sentences are an occasional consequence of the system. Any questions or concerns about the content, text, or information contained within the body of this dictation should be addressed directly to the physician for clarification. (2) ARDS (adult respiratory distress syndrome): (3) Pneumonia: (4) Acute respiratory distress: (5) Elevated lactic acid level: (6) Abnormal electrocardiogram [ECG] [EKG]: (7) Tachycardia: (8) Long-term use of immunosuppressant medication: (9) Obesity (BMI 30.0-34.9): Subjective Patient sitting upright in bed this morning in no acute distress. Patient reports constipation otherwise no complaints, no acute events overnight. Herberth waite is tolerating her diet, voiding, no bowel movement, slept well overnight. Acute concerns related to disposition and constipation all questions answered. Physical Exam Physical Exam: General: Elderly female sitting up in bed in no acute distress HEENT: Normocephalic atraumatic Neck: Normal to visual inspection, trachea midline, no thyromegaly, did not appreciate JVD Cardiac: Regular rate and rhythm, I did not appreciate any significant murmurs, rubs, gallops, normal S1, normal S2. I did not appreciate significant pedal edema, I did not ask appreciate significant calf tenderness Respiratory: Clear to auscultation bilaterally without significant wheezes, rales, rhonchi, symmetrical chest expansion bilaterally GI: Soft, nontender, nondistended, bowel sounds present MSK: Pain improving in the bilateral quadriceps although able to move them strength intact Neuro: Alert and oriented x4 Psych: Calm, cooperative Results & Data Vital Signs (Past 12 Hours) Vital Signs Temp Pulse Resp BP Pulse Ox 03/05/19 15:21 37.1 C 97 H 18 115/65 95 03/05/19 07:27 36.7 C 82 20 123/74 96 Laboratory Results 0103/05/19 03/05/19 Range/Units 16:37 11:37 07:38 Creatinine (0.6-1.2) mg/dl Est Cr Clr Drug Dosing ml/min Est GFR ( Amer) Est GFR (Non-Af Amer) POC Glucose 124 H 136 H 82 (70-99) 03/05/19 03/04/19 Range/Units 04:58 20:29 Creatinine 0.58 L (0.6-1.2) mg/dl Est Cr Clr Drug Dosing 70.1 ml/min Est GFR ( Amer) 103.8 Est GFR (Non-Af Amer) 89.5 POC Glucose 120 H (70-99) Medications Administered 03/05/19 03/05/19 03/05/19 Range/Units 16:37 11:37 07:38 Creatinine (0.6-1.2) mg/dl Est Cr Clr Drug Dosing ml/min Est GFR ( Amer) Est GFR (Non-Af Amer) POC Glucose 124 H 136 H 82 (70-99) 03/05/19 03/04/19 Range/Units 04:58 20:29 Creatinine 0.58 L (0.6-1.2) mg/dl Est Cr Clr Drug Dosing 70.1 ml/min Est GFR ( Amer) 103.8 Est GFR (Non-Af Amer) 89.5 POC Glucose 120 H (70-99) Resident Activity Tracking Resident Involvement: Resident Care Provided Care Provided: Adult Hospital Medicine (1) Pneumonia Laterality: right Lung location: lower lobe of lung Pneumonia type: due to unspecified organism Qualified Code(s): J18.9 - Pneumonia, unspecified organism
[2019-03-06] MEDS: ACETAMINOPHEN 325 MG TAB PO SCH ×3 (01:06→12:21)
[2019-03-06] MEDS: DOCUSATE SODIUM/SENNA 50/8.6MG TAB PO SCH (08:33)
[2019-03-06] MEDS: predniSONE 10 MG TABLET PO SCH (08:33)
[2019-03-06] MEDS: HEPARIN SOD 5,000 UNIT/0.5 ML VIAL SQ SCH (08:34)
[2019-03-06] MEDS: INSULIN ASPART 100 UNITS/ML 3 ML PEN SC SCH ×2 (08:36→12:24)
[2019-03-06] MEDS: POLYETHYLENE (MIRALAX) 17 GM PACK PO SCH (08:38)
--- NOTE | 2019-03-06 21:09 | Billing Data ---
Date of Service March 06, 2019 Coding Level of Care Code D/C Day Management <30 mins
--- NOTE | 2019-03-06 21:11 | Billing Data ---
Date of Service March 05, 2019 Coding Level of Care Code 86002 Subseq Hosp Care Lvl 2
[2019-03-09] MEDS ORDERED: predniSONE 5 MG TAB PO SCH (09:00)
== END 2019-03-06 13:08 | DRG 871 ==
LOC: ED 07:35 → SUATTDRO 11:12 → 1E 11:21 → SUATTDRO 11:21 → 1E 12:19 → 2S 03-02 17:47 → 4W 03-03 09:56

== ENCOUNTER 2019-03-11 13:59 | Inpatient (IN) ==
[2019-03-11] MEDS ORDERED: HYDROCODONE/ACETAMOPHEN 5/325MG TAB PO STA (14:17)
[2019-03-11] MEDS ORDERED: ONDANSETRON 4 MG OD TAB PO STA (14:17)
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
--- NOTE | 2019-03-11 14:58 | Electrocardiogram Report ---
Test Reason : Blood Pressure : / mmHG Vent. Rate : 125 BPM Atrial Rate : 125 BPM P-R Int : 118 ms QRS Dur : 084 ms QT Int : 318 ms P-R-T Axes : 045 -02 -06 degrees QTc Int : 458 ms Sinus tachycardia Inferior infarct , age undetermined Cannot rule out Anterior infarct , age undetermined Abnormal ECG When compared with ECG of 26-FEB-2019 07:22, Vent. rate has increased BY 41 BPM Inferior infarct is now Present Confirmed by Holger Doherty ([id number]) on 03/11/2019 2:57:34 PM Referred By: ED Confirmed By:Holger Doherty
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
[2019-03-11] MEDS ORDERED: SODIUM CHLORIDE 0.9% 1000ML 500 ML IV ONE (17:36)
[2019-03-11 17:47] LABS: iSTAT Creatinine 0.7 mg/dl (0.6-1.3); iSTAT Hemoglobin 12.9 g/dl (12.0-16.0); iSTAT Ionized Calcium 1.17 mmol/l (1.12-1.32)
[2019-03-11 17:50] LABS: Basophils # (auto) 0.03 K/uL (0-0.2); Basophils % (auto) 0.2 %; Eosinophils # (auto) 0.01 K/uL (0-0.5); Eosinophils % (auto) 0.1 %; Hematocrit (blood only) 36.5 % (37-47); Hemoglobin 12.3 g/dL (12.0-16.0); Immature Granulocytes # (auto) 0.17 K/uL (0.00-0.02); Immature Granulocytes % (auto) 1.3 %; Lymphocytes # (auto) 1.21 K/uL (1.2-3.4); Lymphocytes % (auto) 9.2 %; Mean Corpuscular Hgb Conc 33.7 g/dL (32-36); Mean Corpuscular Volume 97.9 fL (80-100); Mean Platelet Volume 8.4 fL (7.4-10.4); Monocytes # (auto) 1.15 K/uL (0.11-0.59); Monocytes % (auto) 8.7 %; Neutrophils # (auto) 10.62 K/uL (1.4-6.5); Neutrophils % (auto) 80.5 %; Nucleated RBC # (auto) 0.02 K/uL (0-0); Nucleated RBC % (auto) 0.2 %; Platelet Count 380 K/uL (130-400); RDW Coefficient of Variation 15.5 % (11.5-14.5); RDW Standard Deviation 53.6 fL (36.4-46.3); Red Blood Count 3.73 M/uL (4.2-5.4); White Blood Count 13.19 K/uL (4.8-10.8)
[2019-03-11] MEDS ORDERED: OPTIRAY 320 125ml IV PRN (18:03)
[2019-03-11 18:11] LABS: Appearance Urine Clear (Clear); Bilirubin Urine Negative (Negative); Blood Urine Negative (Negative); Color Urine Yellow; Glucose Urine UA Negative (Negative); Ketones Urine Negative (Negative); Leukocyte Esterase Urine Negative (Negative); Nitrite Urine Negative (Negative); Protein Urine Negative (Negative); Specific Gravity Urine 1.009 (1.000-1.030); Urobilinogen Urine Negative (Negative); pH Urine 5.5 (4.5-7.5)
--- NOTE | 2019-03-11 18:13 | CT Scan Report ---
CT ANGIOGRAM OF THE CHEST CLINICAL HISTORY: Tachycardia. COMPARISON STUDY: Chest x-ray dated 03/11/2019. Chest CT scans dated 02/27/2019 and 07/03/2016. TECHNIQUE: Following the IV administration of 81 cc of Optiray 320, CT angiogram of the chest was per formed from the upper abdomen to the thoracic inlet utilizing the pulmonary embolus protocol. Images are reviewed in the axial, sagittal, and coronal planes. 3-D MIPS images are created and assessed. IV contrast was administered without complication. A dose lowering technique was utilized adhering to the principles of ALARA. The examination is degraded by motion artifact, as well as by streak artifac t from the right arm which could not be elevated above the chest. CT DOSE: 462.25 mGy.cm FINDINGS: Thyroid: Imaged portions of the thyroid gland are normal in size and attenuation. Thoracic aorta: The thoracic aorta is normal in caliber and demonstrates standard 3-vessel arch anato my. No dissection is seen. Pulmonary vasculature: The pulmonary trunk is normal in caliber. There are no filling defects identif ied in main, lobar, or segmental pulmonary branches to suggest pulmonary embolus. Heart: The heart is top normal in size and without pericardial effusion. Lungs and pleural spaces: Chronic subpleural reticulation is similar to previous and suggests chronic lung disease. There is dense airspace consolidation at the right lung base which has partially clear ed from 02/27/2019. Patchy airspace consolidation is also seen in the upper lobes. There is no large pl eural effusion or pneumothorax. The trachea and central airways are clear. Mediastinum: There is no mediastinal lymphadenopathy. Sun: Clear. Axillae: There is no axillary lymphadenopathy. Upper abdomen: There is a tiny hiatal hernia. The liver appears steatotic. Skeletal structures: The skeletal structures are osteopenic. Degenerative change is noted in the shou lders and thoracic spine. No lytic or blastic bony lesions are seen. There is an acute appearing righ t clavicular fracture with overlying soft tissue edema. IMPRESSION: 1. The examination is degraded by streak and motion artifact. 2. There is no evidence of embolus in the main, lobar, or segmental pulmonary arteries. 3. There is an acute appearing right clavicular fracture with overlying soft tissue edema. 4. There is multifocal airspace consolidation as above. Airspace consolidation throughout the right l ower lobe has partially cleared as compared to 02/27/2019. This likely represents multifocal pneumonia. Clinical correlation will be essential, and radiographic follow-up to complete resolution is recomme nded. 5. Diffuse subpleural reticulation suggests chronic interstitial lung disease. 6. Additional findings as above. ACT 112: Negative or not required by law. Electronically signed by: Ed Bowman M.D. 03/11/2019 6:12 PM
[2019-03-11] MEDS ORDERED: PIPERACILLIN/TAZOBACTAM 4.5 GM/120 ML BAG IV STA (18:56)
[2019-03-11] MEDS ORDERED: VANCOMYCIN HCL 1,500 MG in SODIUM CHLORIDE 0.9% 500 ML IV STA (18:57)
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
--- NOTE | 2019-03-11 22:11 | Emergency Department Note ---
ED Visit Note DEFINITIVE FRACTURE CARE NOTE: Dx: Closed right clavicle fracture, initial encounter Plan: Immobilization with a sling, rest, elevation, narcotic analgesia, orthopedic follow up next week. . : Leukocytosis Qualifiers: Leukocytosis type: unspecified Qualified Code(s): D72.829 - Elevated white blood cell count, unspecified Closed fracture of right clavicle Qualifiers: Encounter type: initial encounter Clavicle location: unspecified part of clavicle Fracture alignment: displaced Qualified Code(s): S42.001A - Fracture of unspecified part of right clavicle, initial encounter for closed fracture
[2019-03-11] MEDS ORDERED: DEXTROSE 50% 50 ML SYRINGE IV PRN (22:17)
[2019-03-11] MEDS ORDERED: ATORVASTATIN 40 MG TAB PO SCH (22:17)
[2019-03-11] MEDS ORDERED: MAGNESIUM HYDROXIDE SUSP 30 ML UDC PO PRN (22:17)
[2019-03-11] MEDS ORDERED: VANCOMYCIN CONSULT ACTIVE PRN (22:17)
[2019-03-11] MEDS ORDERED: CARBOHYDRATES FOR HYPOGLYCEMIA PO PRN (22:17)
[2019-03-11] MEDS ORDERED: GLUCAGON FOR INJ 1 MG VIAL SQ PRN (22:17)
[2019-03-11] MEDS ORDERED: GLUCOSE 40% GEL 15 GM TUBE PO PRN (22:17)
[2019-03-11] MEDS ORDERED: PIPERACILL/TAZOBAC CONSULT ACTIVE PRN (22:17)
[2019-03-11] MEDS ORDERED: PROPRANOLOL HCL 20 MG TAB PO PRN (22:17)
[2019-03-11] MEDS ORDERED: ONDANSETRON INJ 2 MG/ML 2 ML VIAL IV PRN (22:17)
[2019-03-11] MEDS ORDERED: ALUMINUM/MAGNESIUM SUSP 30 ML UDC PO PRN (22:17)
[2019-03-11] MEDS ORDERED: GLUCOSE 10 TABS/TUBE PO PRN (22:17)
[2019-03-11] MEDS ORDERED: POLYETHYLENE (MIRALAX) 17 GM PACK PO PRN (22:17)
[2019-03-11] MEDS: ACETAMINOPHEN 325 MG TAB PO SCH (23:26)
[2019-03-11] MEDS: PANTOprazole 40 MG TAB PO SCH (23:27)
[2019-03-11] MEDS: SPIRONOLACTONE/HCTZ 25-25 PO SCH (23:27)
[2019-03-11] MEDS: INSULIN ASPART 100 UNITS/ML 3 ML PEN SC SCH (23:31)
[2019-03-11] MEDS: INSULIN GLARGINE SOLOSTAR 100 UNITS/ML 3 ML PEN SC SCH (23:31)
[2019-03-12] MEDS ORDERED: PIPERACILLIN/TAZOBACTAM 3.375 GM in DEXTROSE 5% 100 ML IV SCH
[2019-03-12] MEDS: HYDROCODONE/ACETAMOPHEN 5/325MG TAB PO PRN ×2 (01:26→08:30)
--- NOTE | 2019-03-12 04:13 | Billing Data ---
Date of Service March 11, 2019 Coding Level of Care Code 97834 Initial Inpt Care Lvl 3
[2019-03-12] MEDS: ACETAMINOPHEN 325 MG TAB PO SCH ×3 (05:25→16:21)
[2019-03-12 06:08] LABS: Basophils # (auto) 0.05 K/uL (0-0.2); Basophils % (auto) 0.6 %; Eosinophils # (auto) 0.17 K/uL (0-0.5); Eosinophils % (auto) 2.1 %; Hematocrit (blood only) 34.5 % (37-47); Hemoglobin 11.5 g/dL (12.0-16.0); Immature Granulocytes # (auto) 0.09 K/uL (0.00-0.02); Immature Granulocytes % (auto) 1.1 %; Lymphocytes # (auto) 1.69 K/uL (1.2-3.4); Lymphocytes % (auto) 20.8 %; Mean Corpuscular Hemoglobin 32.9 pg (25-34); Mean Corpuscular Hgb Conc 33.3 g/dL (32-36); Mean Corpuscular Volume 98.6 fL (80-100); Mean Platelet Volume 8.2 fL (7.4-10.4); Monocytes # (auto) 0.78 K/uL (0.11-0.59); Monocytes % (auto) 9.6 %; Neutrophils # (auto) 5.36 K/uL (1.4-6.5); Neutrophils % (auto) 65.8 %; Platelet Count 331 K/uL (130-400); RDW Standard Deviation 54.5 fL (36.4-46.3); White Blood Count 8.14 K/uL (4.8-10.8)
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
[2019-03-12 06:38] LABS: BUN Creatinine Ratio 11.6 (10-20); Calcium 8.7 mg/dl (8.5-10.1); Creatinine Clr Calc Pharmacy 48.4 ml/min; Est GFR (African American) 77.1; Est GFR (Non-African American) 66.6; Potassium 3.4 mmol/L (3.5-5.1)
[2019-03-12] MEDS ORDERED: B COMPLEX WITH VITAMIN C PO SCH (09:00)
[2019-03-12] MEDS ORDERED: MULTIVITAMIN TAB PO SCH (09:00)
[2019-03-12] MEDS ORDERED: predniSONE 5 MG TAB PO SCH (09:00)
[2019-03-12] MEDS ORDERED: ENOXAPARIN INJ 40 MG/0.4 ML SYR SQ SCH (09:00)
[2019-03-12] MEDS ORDERED: CYANOCOBALAMIN 500 MCG TABLET (VITAMIN B-12) PO SCH (09:00)
[2019-03-12] MEDS ORDERED: CALCIUM CARBONATE 1250MG TAB PO SCH (09:00)
[2019-03-12] MEDS: PANTOprazole 40 MG TAB PO SCH (09:09)
[2019-03-12] MEDS: SPIRONOLACTONE/HCTZ 25-25 PO SCH (09:09)
[2019-03-12] MEDS: INSULIN GLARGINE SOLOSTAR 100 UNITS/ML 3 ML PEN SC SCH (09:13)
[2019-03-12] MEDS: INSULIN ASPART 100 UNITS/ML 3 ML PEN SC SCH ×2 (09:13→13:29)
[2019-03-12] MEDS ORDERED: VANCOMYCIN HCL 1,000 MG in SODIUM CHLORIDE 0.9% 250 ML IV SCH (10:00)
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
[2019-03-12] MEDS ORDERED: HYDROXYCHLOROQUINE SULFATE 200 MG TAB PO SCH (16:30)
[2019-03-13] MEDS ORDERED: VANCOMYCIN TROUGH ONE (21:30)
== END 2019-03-12 17:30 | disposition home health service (06) | DRG 562 ==
LOC: ED 13:59 → SUATTDRO 21:03 → 3N 21:03